=== PATIENT | female | born 2000 | race African-American/Black ===

== ENCOUNTER 2020-04-24 14:33 | Outpatient (REF) | payer OTHER, SELFPAY ==
[2020-04-25 09:40] LABS: BV Int Neg Control Negative (Negative); BV Int Pos Control Positive (Positive)
[2020-05-18 14:22] LABS: CT PCR NOT DETECTED (Not Detect.); NG PCR NOT DETECTED (Not Detect.)
== END 2020-04-24 14:34 | disposition home or self-care (01) ==
LOC: HO.LAB 14:33
PROVIDERS: Visit Provider Advanced Practice Midwife
DX: R39.15 Urgency of urination (principal); R35.0 Frequency of micturition; Z11.3 Encounter for screening for infections with a predominantly sexual mode of transmission
CPT/HCPCS: 81025; 87086; 87480; 87491; 87510; 87591; 87660

== ENCOUNTER 2020-05-17 08:07 | Outpatient (REF) | payer OTHER, SELFPAY ==
[2020-05-18 13:52] LABS: C. trachomatis RNA TMA NOT DETECTED (NOT DETECTED); N. gonorrhoeae RNA TMA NOT DETECTED (NOT DETECTED)
[2020-06-04 18:17] LABS: HPV mRNA E6/E7 rflx Not Detected (Not Detected)
== END 2020-05-17 08:08 | disposition home or self-care (01) ==
LOC: HO.LAB 08:07
PROVIDERS: Visit Provider Advanced Practice Midwife
DX: R87.615 Unsatisfactory cytologic smear of cervix (principal); A60.00 Herpesviral infection of urogenital system, unspecified; Z20.2 Contact with and (suspected) exposure to infections with a predominantly sexual mode of transmission
CPT/HCPCS: 36415; 81025; 87491; 87591; 87624; 88141; 88142

== ENCOUNTER 2020-09-03 08:11 | Outpatient (REF) | payer OTHER, SELFPAY ==
[2020-09-03 13:43] LABS: CT PCR NOT DETECTED (Not Detect.); NG PCR NOT DETECTED (Not Detect.)
[2020-09-04 08:44] LABS: BV Int Neg Control Negative (Negative); BV Int Pos Control Positive (Positive)
== END 2020-09-03 08:12 | disposition home or self-care (01) ==
LOC: HO.LAB 08:11
PROVIDERS: PCP Internal Medicine; Visit Provider Advanced Practice Midwife
DX: R39.15 Urgency of urination (principal); R10.2 Pelvic and perineal pain; N89.8 Other specified noninflammatory disorders of vagina; Z32.02 Encounter for pregnancy test, result negative; Z20.2 Contact with and (suspected) exposure to infections with a predominantly sexual mode of transmission
CPT/HCPCS: 81025; 87480; 87491; 87510; 87591; 87660

== ENCOUNTER 2020-09-28 11:14 | Outpatient (REF) | payer OTHER, SELFPAY ==
--- NOTE | ~2020-09-28 | XR_ITS ---
EXAMINATION: XR LUMBOSACRAL SPINE CLINICAL INFORMATION: Low back pain COMPARISON: None TECHNIQUE: Three views of the lumbosacral spine. FINDINGS: There are 5 nonrib bearing lumbar vertebra. No acute fracture, spondylolisthesis, or spondylolysis present. Disc spaces are maintained. No evidence of facet arthropathy. Sacroiliac joints unremarkable. Pedicles intact. XR/XR lumbar spine 2-3V IMPRESSION: No significant bony abnormality of the lumbar spine.
== END 2020-09-28 11:15 | disposition home or self-care (01) ==
LOC: HO.HMGCX 11:14
PROVIDERS: PCP Internal Medicine; Visit Provider Physician Assistant Medical
DX: M54.5 Low back pain (principal)
CPT/HCPCS: 72100

== ENCOUNTER 2020-10-19 12:58 | Outpatient (REF) | payer OTHER, SELFPAY ==
--- NOTE | ~2020-10-19 | XR_ITS ---
EXAMINATION: XR FINGER, RIGHT CLINICAL INFORMATION: Pain right finger COMPARISON: Pain right fingers. TECHNIQUE: 3 views of the right middle finger. FINDINGS: The bones and soft tissues are normal. No fracture. Alignment is anatomic. Joint spaces are maintained. XR/XR finger RT min 2V IMPRESSION: Unremarkable right middle finger exam.
== END 2020-10-19 12:59 | disposition home or self-care (01) ==
LOC: HO.HMGCX 12:58
PROVIDERS: PCP Internal Medicine; Visit Provider Hospitalist
DX: M79.644 Pain in right finger(s) (principal)
CPT/HCPCS: 73140

== ENCOUNTER 2020-11-08 09:21 | Outpatient (REF) | payer OTHER, SELFPAY ==
[2020-11-08 16:44] LABS: CT PCR NOT DETECTED (Not Detect.); NG PCR DETECTED (Not Detect.)
[2020-11-09 12:00] LABS: BV Int Neg Control Negative (Negative); BV Int Pos Control Positive (Positive)
== END 2020-11-08 09:22 | disposition home or self-care (01) ==
LOC: HO.LAB 09:21
PROVIDERS: PCP Internal Medicine; Visit Provider Advanced Practice Midwife
DX: R10.2 Pelvic and perineal pain (principal); R30.0 Dysuria; Z20.2 Contact with and (suspected) exposure to infections with a predominantly sexual mode of transmission
CPT/HCPCS: 81003; 87480; 87491; 87510; 87591; 87660

== ENCOUNTER 2020-11-14 14:49 | Outpatient (RCR) | payer OTHER, SELFPAY ==
--- NOTE | 2020-11-14 18:17 | MHC.PT.EP ---
[facility] [place] [facility] [place] [facility] [place] [facility] [address] Kasie Herbert [address] [phone] F: [phone] F: [phone] F: [phone] F: [phone] Physical Therapy Plan of Care Date of Evaluation: Date of Surgery: N/A Diagnosis: lo w back pain Assessment: pt's pain appears to be postural in nature d/t muscular imbalances causing strain on the lumbar spine. Her pain is also most likely d/t poor lifting and carrying mechanics stressing the low back. pt presents to physical therapy with pain, decreased range of motion, decreased strength, impaired functional mobility, impaired postural awareness, and gait deviations. pt is a good candidate for skilled PT due to age, potential remediation of impairments, typical disease/condition progression and prognosis, comorbidities, and motivation. pt would benefit from tailored strengthening and stretching exercise program, functional training, gait training, postural re-training, neuromuscular re-education, modalities as needed for pain, equipment safety demonstration. Frequency and Duration: The patient will be seen 2x/wk for 4 wks Short Term Goals: pt will be I w/ HEP to promote self-management of condition. pt will demo proper sitting posture w/ lumbar roll to promote neutral spine assessed via teachback/demo. 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 pt will report <2/10 low back pain after 6 hr work shift to facilitate pain-free return to work. Treatment Plan: Modalities to reduce pain, spasms and effusion. Manual therapy to restore motion and function. Therapeutic exercise to improve strength and flexibility. Neuromuscular re-education for posture and balance. Therapeutic activities to return to functional activities of daily living. Electronically signed by: Arcelia Cash PT, DPT Please sign and return to therapist. Thank you for your referral.
--- NOTE | 2020-11-27 14:00 | MHC.PT.DC ---
[facility] [place] [facility] [place] [facility] [place] [facility] [address] Kasie Herbert [address] [phone] F: [phone] F: [phone] F: [phone] F: [phone] Physical Therapy Discharge Report Diagnosis: lo w back pain Date of Surgery: N/A Date of Evaluation: 11/14/20 Date of Discharge: 11/27/20 Treatments to Date: 1 Cancellations to Date: 0 No Shows to Date: 3 Discharge Status: Visit Non-compliance Discharge Summary: The patient has no showed three consecutive appointments since her initial evaluation. She is discharged from this physical therapy plan of care due to visit non-compliance at this time. Electronically signed by: Arcelia Cash PT, DPT Please sign and return to therapist. Thank you for your referral.
== END 2020-11-27 14:01 | disposition home or self-care (01) ==
LOC: HO.PT 14:49
PROVIDERS: PCP Internal Medicine; Visit Provider Internal Medicine
DX: M54.5 Low back pain (principal)
CPT/HCPCS: 97110; 97112; 97161

== ENCOUNTER 2020-11-29 14:01 | Outpatient (REF) | payer OTHER, SELFPAY | END 2020-11-29 14:02 | disposition home or self-care (01) | LOC: HO.MDS 14:01 | PROVIDERS: Visit Provider Advanced Practice Midwife | DX: A54.9 Gonococcal infection, unspecified (principal) | CPT/HCPCS: 96372; J1580 ==

== ENCOUNTER 2021-02-24 17:20 | Emergency (ER) | payer OTHER, SELFPAY ==
[2021-02-24 17:32] VITALS: BP 141/83; PULSE 106; RESP 20; TEMP 36.8; O2SAT 96; BMI 29.9
--- NOTE | 2021-02-24 17:32 | ED_ITS ---
HPI - General Adult General Chief complaint: Wound/Laceration Stated complaint: Abscess Time Seen by Provider: 02/24/21 17:32 Related Data Previous Rx's Medication Instructions Recorded dexamethasone 6 mg tablet 6 mg PO DAILY 3 Days #3 tab 11/19/20 azithromycin 500 mg tablet 2,000 mg PO .COMPLEX #4 tab 11/28/20 norgestrel 0.3 mg-ethinyl 1 tab PO DAILY #28 tab 01/20/21 estradiol 30 mcg tablet (Low-Ogestrel (28)) sulfamethoxazole 800 1 tab PO Q12H 10 Days #20 tab 02/21/21 mg-trimethoprim 160 mg tablet (Bactrim DS) Allergies Allergy/AdvReac Type Severity Reaction Status Date / Time amoxicillin [AMOXICILLIN] Allergy Unknown UTICARIA Verified 02/24/21 17:52 amoxicillin Allergy Unknown hives Uncoded 10/28/20 16:14 PMFSH Past Medical History Medical History ADHD Genital herpes History of abnormal cervical Pap smear Obesity (BMI 30.0-34.9) Family History Family History Other Substance use disorder Social History Social History Housing: House Alcohol intake: current Alcohol intake frequency: holidays/special occasions only Patient Tobacco Use Status: Never used Tobacco Second Hand Smoke Exposure: No Substance Use Type: Marijuana Current occupational status: employed Sexual orientation: Straight/Heterosexual Physical Exam Vital Signs: Vital Signs: Last Vital Signs Temp 98.2 F 02/24/21 17:32 Pulse 106 H 02/24/21 17:32 Resp 20 02/24/21 17:32 BP 141/83 H 02/24/21 17:32 Pulse Ox 96 02/24/21 17:32 Body Mass Index 29.9 Course Course Course Narrative: 1730-This is a rapid medical exam. h/o recurrent pilonidal abscess currently on bactrim with continued pain, swelling despite PO antibiotics. Will need I&D. Deferred additional HPI, ROS and PE to primary provider. Discharge Plan Discharge Clinical Impression: Cyst, pilonidal, with abscess Patient Disposition: Home, Self-Care Instructions: Abscess (ED), Abscess Follow-up (ED), Abscess Incision and Drainage (DC) Additional Instructions: You were evaluated for pilonidal cyst. We incised and drained the cyst and applied iodoform packing. Please return in 3 days to remove packing. You may have any healthcare provider remove packing for you. Continue to take antibiotics as directed by prior provider. I referred you to Dr. Thompson, he is a general surgeon. Please call and request an appointment. Thank you for choosing this emergency department for evaluation. Please fol low-up with primary care physician as needed. Return to the emergency department for any new, concerning, or worsening symptoms. Prescriptions: No Action azithromycin 500 mg tablet 2,000 mg PO .COMPLEX Qty: 4 RF: 0 Low-Ogestrel (28) 0.3-30 mg-mcg tablet 1 tab PO DAILY Qty: 28 RF: 4 dexamethasone 6 mg tablet 6 mg PO DAILY 3 Days Qty: 3 RF: 0 sulfamethoxazole-trimethoprim [Bactrim DS] 800-160 mg tablet 1 tab PO Q12H 10 Days Qty: 20 RF: 0 Referrals: Hoang Thompson MD [Physician] - 2 days (Recurrent pilonidal cyst) Stand Alone Forms: Work/School Release Interventions: ED Discharge Assessment Last Done: 02/24/21 19:01 Discharge Date/Time: 02/24/21 19:02
--- NOTE | 2021-02-24 17:50 | ED.WOUNDLAC ---
HPI - Wound/Laceration General Chief Complaint: Wound/Laceration Stated Complaint: Abscess Time Seen by Provider: 02/24/21 17:32 Source: patient Mode of arrival: ambulatory Limitations: no limitations History of Present Illness HPI narrative: 20-year-old female presents for pilonidal cyst. Onset (ago): month(s) Location: other ([place]) Place: home Patient tetanus UTD: Yes Associated symptoms: pain Related Data Previous Rx's Medication Instructions Recorded dexamethasone 6 mg tablet 6 mg PO DAILY 3 Days #3 tab 11/19/20 azithromycin 500 mg tablet 2,000 mg PO .COMPLEX #4 tab 11/28/20 norgestrel 0.3 mg-ethinyl 1 tab PO DAILY #28 tab 01/20/21 estradiol 30 mcg tablet (Low-Ogestrel (28)) sulfamethoxazole 800 1 tab PO Q12H 10 Days #20 tab 02/21/21 mg-trimethoprim 160 mg tablet (Bactrim DS) Allergies Allergy/AdvReac Type Severity Reaction Status Date / Time amoxicillin [AMOXICILLIN] Allergy Unknown UTICARIA Verified 02/24/21 17:52 amoxicillin Allergy Unknown hives Uncoded 10/28/20 16:14 Review of Systems Review of Systems: Constitutional: No Fever, No Chills ENT/Mouth: No Ear Pain, No Hoarseness, No sore throat Eyes: No Eye Pain, No Swelling, No Redness, No Foreign Body Cardiovascular: No Chest Pain, No SOB Respiratory: No Cough, No Dyspnea Gastrointestinal: No Nausea, No Vomiting, No Diarrhea, No abdominal Pain Genitourinary: No Dysuria, No Hematuria Musculoskeletal: positive coccyx pain, No Myalgias, No Joint Swelling Skin: Positive pilonidal cyst, No Skin lacerations, No rash Neuro: No Weakness, No Numbness, No Paresthesias, No Loss of Consciousness, No Dizziness, No Headache Psych: No Anxiety/Panic, No Depression Heme/Lymph: no easy bruising, no Lymphadenopathy Endocrine: No Polyuria, No Polydipsia Yes all other systems are reviewed and are negative [facility] Past Medical History Attestation statement: The following information was validated with the patient. Source: old records reviewed Medical History ADHD Genital herpes History of abnormal cervical Pap smear Obesity (BMI 30.0-34.9) Family History Family History Other Substance use disorder Social History Social History Housing: House Alcohol intake: current Alcohol intake frequency: holidays/special occasions only Patient Tobacco Use Status: Never used Tobacco Second Hand Smoke Exposure: No Substance Use Type: Marijuana Advance Directives: No Advance Directives Information Provided: No Current occupational status: employed Sexual orientation: Straight/Heterosexual Physical Exam Vital Signs: Vital Signs: Last Vital Signs Temp 98.2 F 02/24/21 17:32 Pulse 106 H 02/24/21 17:32 Resp 20 02/24/21 17:32 BP 141/83 H 02/24/21 17:32 Pulse Ox 96 02/24/21 17:32 Body Mass Index 29.9 Appearance: Alert. Oriented X3. No acute distress. Eyes: Pupils equal, round and reactive to light. ENT: Pharynx normal. Neck: Normal inspection. Neck supple. CVS: Normal heart rate and rhythm. Pulses normal. Respiratory: No respiratory distress. Breath sounds normal. Abdomen: Soft and nontender. Skin: 5 cm area of indurated skin at the coccyx and left buttocks. Extremities: No lower extremity edema. Moves all extremities against resistance. Neuro: No motor deficit. No sensory deficit. Cranial nerves 2-12 intact. Course Course Course Narrative: 20-year-old female presents with recurrent pilonidal cyst. Was seen at urgent care and given Bactrim. States that she feels that needs to be incised and drained, has had multiple I&Ds for this pilonidal cyst in the past. Does not report any fevers or chills. I&D complete. Patient tolerated procedure well. Prepped and draped in sterile fashion. Please refer to procedure note for full details. Will have patient follow-up with surgery. Referred to Dr. Thompson. Patient verbalized understanding of and agrees to plan of care to discharge home. MDM - Wound/Laceration MDM Narrative Medical decision making narrative: Pilonidal cyst Differential Diagnosis Differential diagnosis: Likely abscess Medical Records Attestation: I reviewed the patient's medical records. Procedures Abscess I/D Site: other (Pilonidal) Local Anesthetic: lidocaine 2% Amount of anesthesia used (mL): 7 Technique: incised with blade Amount of fluid expressed (mL): 30 Sent for culture/gram staining?: Yes Irrigation: Yes Packing used?: iodoform Discharge Plan Discharge Clinical Impression: Cyst, pilonidal, with abscess Patient Disposition: Home, Self-Care Instructions: Abscess (ED), Abscess Follow-up (ED), Abscess Incision and Drainage (DC) Additional Instructions: You were evaluated for pilonidal cyst. We incised and drained the cyst and applied iodoform packing. Please return in 3 days to remove packing. You may have any healthcare provider remove packing for you. Continue to take antibiotics as directed by prior provider. I referred you to Dr. Thompson, he is a general surgeon. Please call and request an appointment. Thank you for choosing this emergency department for evaluation. Please follow-up with primary care physician as needed. Return to the emergency department for any new, concerning, or worsening symptoms. Prescriptions: No Action azithromycin 500 mg tablet 2,000 mg PO .COMPLEX Qty: 4 RF: 0 Low-Ogestrel (28) 0.3-30 mg-mcg tablet 1 tab PO DAILY Qty: 28 RF: 4 dexamethasone 6 mg tablet 6 mg PO DAILY 3 Days Qty: 3 RF: 0 sulfamethoxazole-trimethoprim [Bactrim DS] 800-160 mg tablet 1 tab PO Q12H 10 Days Qty: 20 RF: 0 Referrals: Hoang Thompson MD [Physician] - 2 days (Recurrent pilonidal cyst) Stand Alone Forms: Work/School Release Interventions: ED Discharge Assessment Last Done: 02/24/21 19:01 Discharge Date/Time: 02/24/21 19:02
[2021-02-24] MEDS: Lidocaine HCl 2 % MPF 5 ML VIAL SUBCUT ×2 (17:56→18:58)
== END 2021-02-24 19:02 | disposition home or self-care (01) ==
PROVIDERS: Emergency Provider Internal Medicine
DX: L05.01 Pilonidal cyst with abscess (principal); Z79.899 Other long term (current) drug therapy
CPT/HCPCS: 10060; 87071; 87205; 99284

== ENCOUNTER 2021-02-26 17:44 | Emergency (ER) | payer OTHER, SELFPAY ==
[2021-02-26 18:05] VITALS: BP 132/74; PULSE 93; RESP 18; TEMP 35.9; O2SAT 97; BMI 29.9
--- NOTE | 2021-02-26 19:34 | ED.SKABFB ---
HPI - Skin/Abscess/Foreign Bdy General Chief complaint: Skin/Abscess/Foreign Body Stated complaint: packing removed from cyst Time Seen by Provider: 02/26/21 18:59 Source: patient Mode of arrival: ambulatory History of Present Illness HPI narrative: 20-year-old female presenting to the ED for packing removal from pilonidal cyst that was I&D'd in the ED on 02/24. Reports compliance with previously prescribed Bactrim however nausea from medication Reports continued pain to area with slight residual drainage. Denies fever/chills, erythema complaint: abscess/boil Related Data Previous Rx's Medication Instructions Recorded dexamethasone 6 mg tablet 6 mg PO DAILY 3 Days #3 tab 11/19/20 azithromycin 500 mg tablet 2,000 mg PO .COMPLEX #4 tab 11/28/20 norgestrel 0.3 mg-ethinyl 1 tab PO DAILY #28 tab 01/20/21 estradiol 30 mcg tablet (Low-Ogestrel (28)) sulfamethoxazole 800 1 tab PO Q12H 10 Days #20 tab 02/21/21 mg-trimethoprim 160 mg tablet (Bactrim DS) ondansetron HCl 4 mg tablet 4 mg PO Q8H PRN #10 tab 02/26/21 (Zofran) Allergies Allergy/AdvReac Type Severity Reaction Status Date / Time amoxicillin [AMOXICILLIN] Allergy Unknown UTICARIA Verified 02/24/21 17:52 amoxicillin Allergy Unknown hives Uncoded 10/28/20 16:14 Review of Systems Review of Systems: Constitutional: No Fever, No Chills ENT/Mouth: No Ear Pain, No Nasal Congestion, No sore throat Cardiovascular: No Chest Pain, No SOB Respiratory: No Cough Gastrointestinal: No Nausea, No Vomiting, No Diarrhea, No Constipation, No Abdominal pain Genitourinary: No Dysuria, No Urinary Frequency Musculoskeletal: No joint pain, No Myalgias, No Joint Swelling Skin: + Skin Lesions, No rash Neuro: No Weakness, No Numbness Yes all other systems are reviewed and are negative [facility] Past Medical History Attestation statement: The following information was validated with the patient. Medical History ADHD Genital herpes History of abnormal cervical Pap smear Obesity (BMI 30.0-34.9) Family History Family History Other Substance use disorder Social History Social History Housing: House Alcohol intake: current Alcohol intake frequency: holidays/special occasions only Patient Tobacco Use Status: Never used Tobacco Second Hand Smoke Exposure: No Substance Use Type: Marijuana Advance Directives: No Advance Directives Information Provided: Yes Patient : No Current occupational status: employed Sexual orientation: Straight/Heterosexual Physical Exam Vital Signs: Vital Signs: Last Vital Signs Temp 96.6 F L 02/26/21 18:05 Pulse 93 02/26/21 18:05 Resp 18 02/26/21 18:05 BP 132/74 02/26/21 18:05 Pulse Ox 97 02/26/21 18:05 Body Mass Index 29.9 Const: General: cooperative, healthy appearing and well developed Orientation/consciousness: patient oriented x3 Limitations: no limitations HENMT: Head: Yes normal to inspection Ears: hearing grossly normal bilaterally General nose exam: Normal external nose present Face and sinus: Yes normal facial exam Eyes: General: appearance normal, both eyes and all related structures EOM: EOMs intact bilaterally Neck: Neck: Yes normal visual inspection and Yes no meningeal signs Resp: Effort & Inspection: normal respiratory effort and no respiratory distress Auscultation: clear to auscultation bilaterally Cardio: Rate: regular rate Heart sounds: S1 normal heart sound present and S2 normal heart sound present GI: Other: Pilonidal cyst present with packing in place, packing removed, slight pus drainage expressed, no surrounding erythema/cellulitis, no fluctuance or induration Inspection: Yes normal to inspection Palpation (GI): Soft to palpation, nontender, no guarding and not rigid : General: Yes no CVA tenderness Back/Spine/Pelvis: Back: no CVA tenderness Skin: Rashes: no rashes Wounds: no wounds Neuro: General: patient oriented x3 and no meningeal signs Gait exam (Neuro): Normal gait present Extrem: General: Yes normal to inspection Course Course Course Narrative: -packing removed MDM - Skin/Abscess/Foreign Bdy MDM Narrative Medical decision making narrative: 20-year-old female presenting to the ED for packing removal from pilonidal cyst that was I&D'd in the ED on 02/24. On exam vital signs stable, NAD, well appearing, physical exam as above, packing removed, dressing applied. Discussed worrisome signs and symptoms and strict return precautions with patient and needed continued from plans of antibiotics. Will send Zofran to pharmacy to aid with Bactrim. Medical Records Attestation: I reviewed the patient's medical records. Lab Data Attestation: I reviewed the patient's lab results. Discharge Plan Discharge Clinical Impression: Abscess packing removal Patient Disposition: Home, Self-Care Instructions: Abscess Follow-up (ED) Additional Instructions: Keep area dry and clean Take Tylenol /Motrin as needed Continue taking prescribed medication If area begins look infected, continues to have drainage, you develop fever please return to the ED Prescriptions: New ondansetron HCl [Zofran] 4 mg tablet 4 mg PO Q8H PRN (Reason: nausea and vomiting) Qty: 10 RF: 0 No Action azithromycin 500 mg tablet 2,000 mg PO .COMPLEX Qty: 4 RF: 0 Low-Ogestrel (28) 0.3-30 mg-mcg tablet 1 tab PO DAILY Qty: 28 RF: 4 dexamethasone 6 mg tablet 6 mg PO DAILY 3 Days Qty: 3 RF: 0 sulfamethoxazole-trimethoprim [Bactrim DS] 800-160 mg tablet 1 tab PO Q12H 10 Days Qty: 20 RF: 0 Referrals: Physician,None [Primary Care Provider] - 2 days Interventions: ED Discharge Assessment Last Done: 02/26/21 19:39 Discharge Date/Time: 02/26/21 19:41
== END 2021-02-26 19:41 | disposition home or self-care (01) ==
PROVIDERS: Emergency Provider Emergency Medicine
DX: L05.01 Pilonidal cyst with abscess (principal); Z98.890 Other specified postprocedural states
CPT/HCPCS: 99284

== ENCOUNTER 2021-03-04 16:35 | Emergency (ER) | payer OTHER, SELFPAY ==
[2021-03-04 16:57] VITALS: BP 119/74; PULSE 100; RESP 16; TEMP 36.2; O2SAT 99; BMI 29.7
--- NOTE | 2021-03-04 17:24 | ED_ITS ---
HPI - Recheck/Abnormal Lab/Rx General Chief Complaint: Skin/Abscess/Foreign Body Stated Complaint: boil still draining Time Seen by Provider: 03/04/21 17:19 Source: patient Mode of arrival: ambulatory Limitations: no limitations History of Present Illness complaint: wound re-check Initial visit (ago): day(s) (Eight days) Initial visit for: abscess Returns today for: wound recheck Symptoms since prior visit: improved (Although still having mild drainage in the morning when she pushes) Associated symptoms: none Treatments prior to arrival: other (She was given Bactrim although she reports she went on vacation did not take as prescribed) Related Data Previous Rx's Medication Instructions Recorded dexamethasone 6 mg tablet 6 mg PO DAILY 3 Days #3 tab 11/19/20 azithromycin 500 mg tablet 2,000 mg PO .COMPLEX #4 tab 11/28/20 norgestrel 0.3 mg-ethinyl 1 tab PO DAILY #28 tab 01/20/21 estradiol 30 mcg tablet (Low-Ogestrel (28)) sulfamethoxazole 800 1 tab PO Q12H 10 Days #20 tab 02/21/21 mg-trimethoprim 160 mg tablet (Bactrim DS) ondansetron HCl 4 mg tablet 4 mg PO Q8H PRN #10 tab 02/26/21 (Zofran) cephalexin 500 mg capsule 500 mg PO Q6H 14 Days #56 cap 03/04/21 sulfamethoxazole 800 1 tab PO BID 14 Days #28 tab 03/04/21 mg-trimethoprim 160 mg tablet (Bactrim DS) Allergies Allergy/AdvReac Type Severity Reaction Status Date / Time amoxicillin [AMOXICILLIN] Allergy Unknown UTICARIA Verified 03/04/21 17:11 amoxicillin Allergy Unknown hives Uncoded 10/28/20 16:14 Review of Systems Review of Systems: Constitutional : No Fever, No Chills, Cardiovascular : No Chest Pain, No SOB Respiratory : No Dyspnea Gastrointestinal : No abdominal pain Musculoskeletal : No Joint Swelling Skin : positive skin wound with mild drainage, no skin laceration, No Foreign bodies, No rash, No surrounding erythema Neuro : No Weakness, No Numbness/tingling Psych : No SI/HI/thoughts of self injury Yes all other systems are reviewed and are negative PMFSH Past Medical History Attestation statement: The following information was validated with the patient. Medical History ADHD Genital herpes History of abnormal cervical Pap smear Obesity (BMI 30.0-34.9) Family History Family History Other Substance use disorder Social History Social History Housing: House Alcohol intake: current Alcohol intake frequency: holidays/special occasions only Patient Tobacco Use Status: Never used Tobacco Second Hand Smoke Exposure: No Substance Use Type: Marijuana Advance Directives: No Advance Directives Information Provided: Yes Patient : No Current occupational status: employed Sexual orientation: Straight/Heterosexual Physical Exam Vital Signs: Vital Signs: Last Vital Signs Temp 97.1 F 03/04/21 16:57 Pulse 100 03/04/21 16:57 Resp 16 03/04/21 16:57 BP 119/74 03/04/21 16:57 Pulse Ox 99 03/04/21 16:57 Body Mass Index 29.7 vital signs have been reviewed as normal and appeared to be correct. Blood pressure normal Heart rate normal. Respiration rate normal. Temperature normal. Oxygen saturation normal. Appearance: Alert. Oriented X3. No acute distress. Head: Normal external exam. Normocephalic. Atraumatic. Eyes: PERRLA. EOMI. Conjunctiva and sclera normal. Eyelids normal. ENT: Pharynx normal. Uvula midline. Moist mucous membranes. Neck: Normal inspection. Neck supple. FROM. CVS: Normal heart rate and rhythm. Respiratory: No respiratory distress. Painless inspiration. Skin: Skin warm and dry. Normal skin color. Normal skin turgor. To pilonidal aspect of buttocks patient has a wound noted with mild purulent drainage no fluctuance/induration/foreign bodies noted at this time. No surrounding erythema noted. No additional rashes/lesions/lacerations noted. Extremities: Extremities exhibit normal range of motion. Extremities nontender. Neuro: Oriented X 3. No motor deficit. No sensory deficit. Reflexes normal. Normal steady gait. No focal neuro deficits noted. Vascular: + radial pulses Normal cap refill. No cyanosis noted to upper extremity nails Course Course Course Narrative: Patient with pilonidal wound still draining small amounts of purulent drainage no fluctuance or induration or surrounding erythema although due to patient is still having some drainage and not completing her course of antibiotics will restart her on Bactrim and Keflex and DC home with referral to follow up with the general surgeon to return if any new or worsening symptoms. Patient understands agrees with this plan. MDM - Recheck/Abnormal Lab/Rx Medical Records Attestation: I reviewed the patient's medical records. Discharge Plan Discharge Clinical Impression: Wound discharge, Encounter for wound re-check Patient Disposition: Home, Self-Care Instructions: Wound Infection (ED), Wound Healing and Your Diet (ED), Warm Comp ress or Soak (ED) Prescriptions: New sulfamethoxazole-trimethoprim [Bactrim DS] 800-160 mg tablet 1 tab PO BID 14 Days Qty: 28 RF: 0 cephalexin 500 mg capsule 500 mg PO Q6H 14 Days Qty: 56 RF: 0 No Action azithromycin 500 mg tablet 2,000 mg PO .COMPLEX Qty: 4 RF: 0 Low-Ogestrel (28) 0.3-30 mg-mcg tablet 1 tab PO DAILY Qty: 28 RF: 4 ondansetron HCl [Zofran] 4 mg tablet 4 mg PO Q8H PRN (Reason: nausea and vomiting) Qty: 10 RF: 0 dexamethasone 6 mg tablet 6 mg PO DAILY 3 Days Qty: 3 RF: 0 sulfamethoxazole-trimethoprim [Bactrim DS] 800-160 mg tablet 1 tab PO Q12H 10 Days Qty: 20 RF: 0 Referrals: Hoang Thompson MD [Physician] - 2 days Print Language: Azerbaijani
== END 2021-03-04 17:51 | disposition home or self-care (01) ==
PROVIDERS: Emergency Provider Internal Medicine
DX: Z48.01 Encounter for change or removal of surgical wound dressing (principal); L05.01 Pilonidal cyst with abscess
CPT/HCPCS: 99283

== ENCOUNTER → 2021-03-10 10:48 | Outpatient (BNVA) | payer OTHER, SELFPAY | PROVIDERS: Visit Provider Surgery ==

== ENCOUNTER 2021-03-19 08:51 | Outpatient (REF) | payer OTHER, SELFPAY ==
[2021-03-19 15:10] LABS: CT PCR NOT DETECTED (Not Detect.); NG PCR NOT DETECTED (Not Detect.)
== END 2021-03-19 08:52 | disposition home or self-care (01) ==
LOC: HO.LAB 08:51
PROVIDERS: Visit Provider Advanced Practice Midwife
DX: Z30.09 Encounter for other general counseling and advice on contraception (principal); Z20.2 Contact with and (suspected) exposure to infections with a predominantly sexual mode of transmission
CPT/HCPCS: 81025; 87491; 87591

== ENCOUNTER 2021-03-28 10:32 | Day surgery (SDC) | payer OTHER, SELFPAY ==
--- NOTE | 2021-03-27 14:16 | HO.ANESPROP2 ---
Documented by User: Amara Gonsalves NP 03/27/21 14:17 HPI - Anesthesia Eval Consult details Narrative: 20yo F for Excision Pilonidal Cyst PMFSH Active Problems Active Problems: All Active Problems (Updated 03/10/21 @ 11:18 by Hoang Thompson MD) Sacrococcygeal pilonidal cyst (Acute) Abscess (Acute) Pharyngitis (Acute) Foreign body of left thumb with infection (Acute) Pain of right middle finger (Acute) Lumbar back pain (Acute) Possible exposure to STD (Acute) Pelvic pain in female (Acute) Urinary urgency (Acute) Past Medical History Medical History ADHD Genital herpes History of abnormal cervical Pap smear Obesity (BMI 30.0-34.9) Sacrococcygeal pilonidal cyst Family History Family History Other Substance use disorder Social History Social History Housing: House Alcohol intake: current Alcohol intake frequency: holidays/special occasions only Patient Tobacco Use Status: Never used Tobacco Second Hand Smoke Exposure: No Use of substances other than those prescribed or required for medical reasons: Yes Substance Use Type: Marijuana Are you DNR?: No Advance Directives: No Advance Directives Information Provided: Yes Current occupational status: employed Sexual orientation: Straight/Heterosexual Meds Allergies Allergy/AdvReac Type Severity Reaction Status Date / Time amoxicillin [AMOXICILLIN] Allergy Intermediate UTICARIA Verified 03/28/21 11:31 amoxicillin Allergy Intermediate hives Uncoded 03/28/21 11:31 Exam Exam Date and Time: March 27, 2021 1416 Assessment and Plan Assessment Anesthesia Assessment: Chart Reviewed Documented by User: Osbaldo Deng MD 03/28/21 12:23 PMFSH Past Medical History Medical History ADHD Genital herpes History of abnormal cervical Pap smear Obesity (BMI 30.0-34.9) Sacrococcygeal pilonidal cyst Patient : No Family History Family History Other Substance use disorder Family history of problems with anesthesia: No Surgical History History of Problems with Anesthesia: No Social History Social History Housing: House Alcohol intake: current Alcohol intake frequency: holidays/special occasions only Patient Tobacco Use Status: Never used Tobacco Second Hand Smoke Exposure: No Use of substances other than those prescribed or required for medical reasons: Yes Substance Use Type: Marijuana Are you DNR?: No Advance Directives: No Advance Directives Information Provided: Yes Current occupational status: employed Sexual orientation: Straight/Heterosexual Meds Allergies Allergy/AdvReac Type Severity Reaction Status Date / Time amoxicillin [AMOXICILLIN] Allergy Intermediate UTICARIA Verified 03/28/21 11:31 amoxicillin Allergy Intermediate hives Uncoded 03/28/21 11:31 Exam Airway Mallampati Class: I TM Dist: >3cm Neck ROM: Full Loose/Missing/Broken Teeth: No Heart: ok Lungs: ok Assessment and Plan Final Anesthetic Review Family History of Problems with Anesthesia: No History of Problems with Anesthesia: No NPO: Yes ASA Class: II Final Preanesthetic Review: No Changes in Pt Med Stat, Meds/Allgs Chart Reviewed, Consent Obtained/Reviewed and Anes Risks/Benef Reviewed Patient Risk: Low Procedure Risk: Intermediate Anesthetic Plan Anesthetic Plan: GA and Agree w/ Assess. and Plan Disposition: Standard PACU
[2021-03-28 11:43] LABS: UPreg QC Valid YES; Urine Pregnancy NEGATIVE (NEGATIVE)
[2021-03-28 11:48] VITALS: BP 115/70; PULSE 65; RESP 18; TEMP 36.1; O2SAT 99; BMI 32.1
--- NOTE | 2021-03-28 11:55 | MHC.SHP ---
Pre-Procedural Eval Section A Date of Service: 03/28/21 Section B Chief Complaint: Sacrococcygeal pilonidal cyst Allergies: Allergies Allergy/AdvReac Type Severity Reaction Status Date / Time amoxicillin [AMOXICILLIN] Allergy Intermediate UTICARIA Verified 03/28/21 11:31 amoxicillin Allergy Intermediate hives Uncoded 03/28/21 11:31 Plan I have reviewed the history and physical and performed a pertinent physical examination on my patient. No changes have occurred unless specified.
[2021-03-28] MEDS: Lactated Ringers 1,000 ML 100 ML IVCONT (12:00)
--- NOTE | 2021-03-28 12:59 | P.OP_ITS ---
Operative Note Operative Note Date of Service: 03/28/21 Narrative: Preop diagnosis: Pilonidal cyst, sacrococcygeal area Postop diagnosis: Pilonidal cyst, sacrococcygeal area Procedure: Excision of pilonidal cyst from the sacrococcygeal area Surgeon: Hoang Thompson MD switchboard operator assistant: CHANCE Lambert Patient is a 20-year-old female with note of an area of recurrent swelling and drainage in the sacrococcygeal area. She had this induration to the left of midline along with midline pits in the gluteal cleft consistent with a pilonidal cyst. She did to proceed with excision. She understood technique of excision under anesthesia. She was aware of the risks, benefits, and alternatives. She was brought to the operating room placed in prone position under general anesthesia via laryngeal mask airway. The buttocks were retracted with wide tape laterally. The sacrococcygeal area was prepped and draped in the usual sterile fashion. A surgical time-out was done. The patient received cefazolin 2 g IV preoperatively. Infiltrated the planned line of incision using lidocaine 1%. I made an incision elliptically starting from beyond the pits all around the area of induration using blade 15. This carried down through the full- thickness skin subcutaneous fat with electrocautery to excise this entire indurated area along with the sinus tracts. The proceeded with this dissection posteriorly until this entire area was delivered and sent as a specimen. I cauterized oozing areas. The excision site was about 7.5 cm long by about 3 cm wide. Once hemostasis was ensured, I proceeded to then undermine the edges to create a flap of subcutaneous tissue on both sides and allow closure without tension. I reapposed the subcutaneous layer with Dexon 3-0 interrupted sutures. Skin closure was achieved with nylon 2-0 sutures simple interrupted sutures alternating with vertical mattress sutures to allow eversion of the skin. The area was then infiltrated with Marcaine 0.5% for postop analgesia. The procedure was completed The patient tolerated procedure well. There were no complication noted. Initial and final counts of sponges and instruments were correct. Estimated blood loss was about 15 cc . The patient was extubated without difficulty and transferred to the recovery room with stable vital signs.
[2021-03-28 13:17] VITALS: BP 105/62; PULSE 86; RESP 18; TEMP 36.1; O2SAT 97
[2021-03-28 13:22] VITALS: BP 122/67; PULSE 70; RESP 18; O2SAT 97
[2021-03-28 13:27] VITALS: BP 126/82; PULSE 77; RESP 18; O2SAT 99
[2021-03-28] MEDS: oxyCODONE HCl Immed Release 5 MG TABLET 10 MG PO (13:27)
[2021-03-28] MEDS: Acetaminophen 325 MG TABLET 650 MG PO (13:28)
[2021-03-28 13:32] VITALS: BP 126/84; PULSE 77; RESP 18; O2SAT 99
[2021-03-28 13:56] VITALS: BP 114/68; PULSE 62; RESP 16; TEMP 36.1; O2SAT 99
== END 2021-03-28 15:37 | disposition home or self-care (01) ==
PROVIDERS: Nurse Practitioner; Visit Provider Surgery
PROC: (CPT 11771; principal; 2021-03-28 11:40)
DX: L05.91 Pilonidal cyst without abscess (principal); A60.00 Herpesviral infection of urogenital system, unspecified; Z79.899 Other long term (current) drug therapy; Z88.0 Allergy status to penicillin
CPT/HCPCS: 11771; 81025; 88304; J0690; J1100; J1885; J2250; J2405; J3010

== ENCOUNTER → 2021-04-07 08:51 | Outpatient (BNVA) | payer OTHER, SELFPAY | PROVIDERS: Visit Provider Surgery ==

== ENCOUNTER → 2021-05-16 10:56 | Outpatient (BNVA) | payer OTHER, SELFPAY | PROVIDERS: Visit Provider Advanced Practice Midwife ==

== ENCOUNTER 2021-05-21 09:35 | Outpatient (REF) | payer OTHER, SELFPAY | END 2021-05-21 09:36 | disposition home or self-care (01) | LOC: HO.LAB 09:35 | PROVIDERS: Visit Provider Advanced Practice Midwife | DX: Z01.419 Encounter for gynecological examination (general) (routine) without abnormal findings (principal) | CPT/HCPCS: 88142 ==

== ENCOUNTER 2021-06-06 10:01 | Emergency (ER) | payer OTHER, SELFPAY ==
--- NOTE | ~2021-06-06 | US_ITS ---
EXAMINATION: US PELVIS CLINICAL INFORMATION: IUD placement with pelvic and uterine pain. Last menstrual period 05/15/2020. COMPARISON: No similar priors. TECHNIQUE: Ultrasound of the pelvis is performed using both transabdominal and transvaginal transducers along with Doppler. Transvaginal imaging is performed due to inadequate visualization transabdominally. FINDINGS: Uterus: The uterus is anteverted and measures 7.8 x 3.4 x 4.2 cm. No fibroids are identified. The endometrium measures 0.8 cm without focal abnormalities. An IUD is in appropriate positioning within the endometrial canal. Nabothian cysts overlie the cervix. Adnexa: Both ovaries are visualized. There is normal color flow to the adnexa. There is no pelvic ascites or fluid collection. Right ovary measures 4.3 x 3.2 x 3.9 cm. There is a 2.7 cm avascular cyst in the right ovary with fluid levels and layering debris is identified in some of the images. Left ovary measures 2.7 x 1.6 x 1.7 cm. US/US pelvic and transvaginal IMPRESSION: Appropriate positioning of the IUD. No evidence of ovarian torsion at the moment of this examination. A 2.7 cm cyst in the right ovary with layering fluid levels, favors to represent a hemorrhagic cyst which does not require follow-up. However, if pain persists, consider an interval imaging in 6-12 weeks to ensure resolution.
[2021-06-06 10:04] VITALS: BP 136/64; PULSE 103; RESP 18; TEMP 37.1; O2SAT 99; BMI 31.1
--- NOTE | 2021-06-06 10:21 | ED_ITS ---
HPI - Female Genitourinary General Chief complaint: Urogenital-Female Stated complaint: IUD issues Time Seen by Provider: 06/06/21 10:21 Source: patient Mode of arrival: ambulatory Limitations: no limitations History of Present Illness HPI Narrative: Patient had an IUD placed 3 weeks ago, last night after sex she had increased pain and cramping, Now with pain that is not improving with tylenol. Patient comes for increased pain. Patient with increased with nausea Onset (ago): week(s) Severity: mild Quality of pain: sharp and aching Consistency: intermittent Associated symptoms: abdominal pain Related Data Previous Rx's Medication Instructions Recorded naproxen 500 mg tablet 500 mg PO BID #14 tab 05/06/21 naproxen 500 mg tablet (Naprosyn) 500 mg PO BID #20 tab 06/06/21 Allergies Allergy/AdvReac Type Severity Reaction Status Date / Time amoxicillin Allergy Intermediate UTICARIA Verified 06/06/21 10:04 [AMOXICILLIN] Review of Systems 2 Verdana 4l Constitutional: Verdana 4d Constitutional: Verdana 4d Verdana 4d Reports no additional constitutional complaints Verdana 4l Eyes: Verdana 4d Verdana 4d Eyes: Verdana 4d Reports no additional eye complaints Verdana 4l ENT: Verdana 4d Denies dizziness Verdana 4l Cardiovascular: Verdana 4d Cardiovascular: Verdana 4d Verdana 4d Reports no additional cardiovascular complaints Verdana 4l Respiratory: Verdana 4d Verdana 4d Respiratory: Verdana 4d Reports as per HPI Verdana 4l Gastrointestinal: Verdana 4d Gastrointestinal: Verdana 4d Verdana 4d Reports no additional gastrointestinal complaints Verdana 4l Genitourinary: Verdana 4d Verdana 4d Genitourinary: Verdana 4d Reports no additional female genitourinary complaints Verdana 4l Musculoskeletal: Verdana 4d Musculoskeletal: Verdana 4d Verdana 4d Reports no additional musculoskeletal complaints Verdana 4l Integumentary/Breasts: Verdana 4d Skin/Breast: Verdana 4d Verdana 4d Denies rash Verdana 4l Neurologic: Verdana 4d Reports system reviewed and no additional complaints, except as documented, Denies dizziness and Denies Sensory deficit (Neuro) Verdana 4l Psychiatric: Verdana 4d Verdana 4d Psychiatric: Verdana 4d Denies anxiety [facility] Past Medical History Medical History ADHD Genital herpes History of abnormal cervical Pap smear Obesity (BMI 30.0-34.9) Sacrococcygeal pilonidal cyst Family History Family History Other Substance use disorder Social History Social History Housing: House Alcohol intake: never Patient Tobacco Use Status: Never used Tobacco Second Hand Smoke Exposure: No Use of substances other than those prescribed or required for medical reasons: No Substance Use Type: Marijuana Advance Directives: No Advance Directives Information Provided: No Current occupational status: employed Sexual orientation: Straight/Heterosexual Physical Exam Verdana 4l Vital Signs: Verdana 4d Verdana 4d Vital Signs: Verdana 4d Verdana 4Bd Last Vital Signs Verdana 4d Paper Gluing Operator New 4d Paper Gluing Operator New 4d Temp 98.8 F 06/06/21 10:04 Paper Gluing Operator New 4d Pulse 93 06/06/21 12:08 Paper Gluing Operator New 4d Resp 14 06/06/21 12:08 BP 125/63 06/06/21 12:08 Pulse Ox 100 06/06/21 12:08 BMI result Body Mass Index 31.1 Const: General: healthy appearing Nutritional Appearance: average body habitus Orientation/consciousness: oriented to person and patient oriented x3 Limit ations: no limitations HENMT: Head: Yes normal to inspection Ears: external ears normal General nose exam: Normal external nose present Mouth: Normal oral and palatal mucosa present and oropharynx normal Throat: Yes posterior oropharynx normal Eyes: General: appearance normal, both eyes and all related structures Neck: Other: supple Neck: Yes normal visual inspection Chest: Chest palpation & inspection: normal inspection of the chest Resp: Auscultation: clear to auscultation bilaterally Cardio: Jugular venous distension: no JVD Rate: regular rate Rhythm: regular rhythm Heart sounds: S1 normal heart sound present and S2 normal heart sound present GI: Inspection: Yes normal to inspection Palpation (GI): Soft to palpation, nontender and No hepatosplenomegaly present Auscultation: normal bowel sounds : Other: cervix visualized, no strings apparent, slight brown discharge, no active bleeding General: Yes no CVA tenderness Back/Spine/Pelvis: Back: no CVA tenderness Skin: General skin exam: no rashes or lesions noted Neuro: General: oriented to person and patient oriented x3 Cranial nerves: Yes CN's II-XII intact bilaterally Motor exam (neuro): 5/5 motor strength present throughout Sensory Exam: No Sensory deficit (Neuro) Extrem: General: Yes normal to inspection Psych: Appearance: grossly normal Course Reevaluation(s) Reevaluation #1: Patient with IUD in good position, patient has a 3cm ovarian cyst on the right that is probably causing her pain. Will dc on Nsaids Time: 12:43 [facility] - Female Genitourinary Lab Data Labs: Lab Results 06/06/21 06/06/21 Range/Units 10:40 10:40 Urine Color YELLOW Urine Appearance HAZY Urine pH 6.5 (5.0-8.0) Ur Specific [place] 1.025 (1.005-1.025) Urine Protein TRACE (NEG-TRACE) MG/DL Urine Glucose (UA) NEG (NEG) MG/DL Urine Ketones NEG (NEG) MG/DL Urine Blood TRACE (NEG) Urine Nitrite NEG (NEG) Ur Leukocyte Esterase NEG (NEG) Urine RBC 0 (0) /HPF Urine WBC 0-2 (0-4) /HPF Ur Squamous Epith Cells 1+ /LPF Amorphous Sediment TRACE /LPF Urine Bacteria NONE /LPF Urine Mucus 1+ /LPF Urine Test NEGATIVE (NEGATIVE) Imaging Data pelvic US: Radiologist's impression: FINDINGS: Uterus: The uterus is anteverted and measures 7.8 x 3.4 x 4.2 cm. No fibroids are identified. The endometrium measures 0.8 cm without focal abnormalities. An IUD is in appropriate positioning within the endometrial canal. Nabothian cysts overlie the cervix. Adnexa: Both ovaries are visualized. There is normal color flow to the adnexa. There is no pelvic ascites or fluid collection. Right ovary measures 4.3 x 3.2 x 3.9 cm. There is a 2.7 cm avascular cyst in the right ovary with fluid levels and layering debris is identified in some of the images. Left ovary measures 2.7 x 1.6 x 1.7 cm. US/US pelvic and transvaginal IMPRESSION: Appropriate positioning of the IUD. ? No evidence of ovarian torsion at the moment of this examination. ? A 2.7 cm cyst in the right ovary with layering fluid levels, favors to represent a hemorrhagic cyst which does not require follow-up. However, if pain persists, consider an interval imaging in 6-12 weeks to ensure resolution. Discharge Plan Discharge Clinical Impression: Ovarian cyst Patient Disposition: Home, Self-Care Instructions: Ovarian Cyst (ED) Prescriptions: New naproxen [Naprosyn] 500 mg tablet 500 mg PO BID Qty: 20 0RF No Action naproxen 500 mg tablet 500 mg PO BID Qty: 14 0RF Referrals: Emil Mendiola MD [Physician] - 1 week
[2021-06-06 10:35] VITALS: BP 129/77; PULSE 103; RESP 14; O2SAT 98
[2021-06-06 10:54] LABS: Appearance Urine HAZY; Color Urine YELLOW; Glucose Urine UA NEG (NEG); Leukocyte Esterase Urine NEG (NEG); Nitrite Urine NEG (NEG); PH 6.5 (5.0-8.0); Specific Gravity - Urine 1.025 (1.005-1.025); UACC Culture Trigger NO; Urine Blood TRACE (NEG); Urine Ketones NEG (NEG); Urine Protein TRACE MG/DL (NEG-TRACE)
[2021-06-06 10:55] LABS: UPreg QC Valid YES; Urine Pregnancy NEGATIVE (NEGATIVE)
[2021-06-06] MEDS: Ondansetron ODT 4 MG TAB.RAPDIS TRANSLINGU (10:55)
[2021-06-06] MEDS: Ketorolac Tromethamine 60 MG/2 ML VIAL IM (10:56)
[2021-06-06 11:10] LABS: Amorphous Sediment Urine TRACE /LPF; Mucus Urine 1+ /LPF; RBC Urine 0 /HPF (0); Squamous Epithelial Cell Urine 1+ /LPF; WBC Urine 0-2 /HPF (0-4)
[2021-06-06 12:08] VITALS: BP 125/63; PULSE 93; RESP 14; O2SAT 100
== END 2021-06-06 13:02 | disposition home or self-care (01) ==
PROVIDERS: Emergency Provider Emergency Medicine
DX: N83.201 Unspecified ovarian cyst, right side (principal); F12.90 Cannabis use, unspecified, uncomplicated; Z79.899 Other long term (current) drug therapy
CPT/HCPCS: 76830; 76856; 81001; 81025; 96372; 99284; J1885

== ENCOUNTER → 2021-06-13 08:20 | Outpatient (BNVA) | payer OTHER, SELFPAY | PROVIDERS: Visit Provider Advanced Practice Midwife ==

== ENCOUNTER 2021-06-17 02:56 | Emergency (ER) | payer OTHER, SELFPAY ==
--- NOTE | ~2021-06-17 | XR_ITS ---
EXAMINATION: XR SHOULDER, RIGHT CLINICAL INFORMATION: Pain COMPARISON: None TECHNIQUE: Three views of the right shoulder. FINDINGS: Glenohumeral alignment is anatomic. No acute fracture is seen. The acromioclavicular joint is intact. XR/XR shoulder RT min 2V IMPRESSION: No acute findings.
[2021-06-17 02:57] VITALS: BP 143/77; PULSE 87; RESP 18; TEMP 36.2; O2SAT 99; BMI 31.3
[2021-06-17 04:39] VITALS: BP 124/76; PULSE 87; RESP 12; TEMP 36.7; O2SAT 100
--- NOTE | 2021-06-17 05:01 | ED_ITS ---
HPI - Extremity Problem General Chief complaint: Extremity Injury, Upper Stated complaint: right shoulder pain x3 days Time Seen by Provider: 06/17/21 03:15 Source: patient Mode of arrival: ambulatory History of Present Illness HPI Narrative: 20-year-old female without significant past medical history presents with anterior right shoulder discomfort that is atraumatic in nature but patient states has worsened over time and that it is exacerbated by lying on her right side and patient states that she experiences pain when she places her arm in flexion or extension but denies any numbness/tingling/weakness into the distal extremity. She denies any associated, shortness of breath. Related Data Home Medications Medication Instructions Recorded Confirmed levonorgestrel (Kyleena) 0 device INTRAUTERINE ONCE 06/13/21 Previous Rx's Medication Instructions Recorded naproxen 500 mg tablet 500 mg PO BID #14 tab 05/06/21 naproxen 500 mg tablet (Naprosyn) 500 mg PO BID #20 tab 06/06/21 ketorolac 10 mg tablet 10 mg PO Q6H PRN 5 Days #20 tab 06/17/21 Allergies Allergy/AdvReac Type Severity Reaction Status Date / Time amoxicillin [AMOXICILLIN] Allergy Intermediate UTICARIA Verified 06/17/21 02:57 Review of Systems Review of Systems: Pertinent positives and negatives as stated in HPI 10 point review of systems is otherwise negative. [facility] Past Medical History Source: nursing notes reviewed Medical History ADHD Genital herpes History of abnormal cervical Pap smear Obesity (BMI 30.0-34.9) Sacrococcygeal pilonidal cyst Family History Family History Other Substance use disorder Social History Social History Housing: House Alcohol intake: never Patient Tobacco Use Status: Never used Tobacco Second Hand Smoke Exposure: No Substance Use Type: Marijuana Advance Directives: No Patient : No Current occupational status: employed Sexual orientation: Straight/Heterosexual Physical Exam Vital Signs: Vital Signs: Last Vital Signs Temp 98.1 F 06/17/21 04:39 Pulse 87 06/17/21 04:39 Resp 12 06/17/21 04:39 BP 124/76 06/17/21 04:39 Pulse Ox 100 06/17/21 04:39 BMI result Body Mass Index 31.3 VITAL SIGNS: Reviewed. GENERAL: Well developed, well nourished, in no acute distress. HEAD: Normocephalic/atraumatic EYES: PERRLA, EOMI LUNGS: Normal breath sounds. No adventitious sounds or accessory muscle use. SpO2<100> CARDIOVASCULAR: Regular rate and rhythm without noted murmurs ABDOMEN: Soft, non-tender, non-distended with bowel sounds RIGHT UPPER EXTREMITY: No deformities, erythema, swelling, induration noted, there is pain on palpation over the bicipital groove and patient has active range of motion with discomfort. Pulses are palpable, warm extremity, sensation intact, capillary refill less than 3 seconds. NEUROLOGIC: Alert and oriented x 4. Course Course Course Narrative: 20-year-old female with history and clinical presentation consistent with tendinitis and low clinical suspicion for rotator cuff injury/dislocation/fracture. Review of all imaging studies negative for acute findings and patient received combination analgesics and was otherwise discharged home in stable condition with instructions to follow-up with her primary care provider. Discharge Plan Discharge Clinical Impression: Right shoulder tendinitis Patient Disposition: Home, Self-Care Instructions: Shoulder Pain (ED) Additional Instructions: 1. Continue to move your right shoulder to prevent stiffness and arthritis. 2. Tylenol 1000 mg, orally, every 6 hours as needed for pain control. Do not exceed 4000 mg within 24 hours. Lidocaine patch, available [id number], apply to area of maximal tenderness. 3. You have been prescribed an anti-inflammatory and should not use any other anti-inflammatories while on this medication (do not use naproxen, Aleve, ibuprofen, or Motrin). 4. Recommend that you follow-up with your primary care provider for re- evaluation and further outpatient management. Return to the ER for worsening symptoms. Prescriptions: New ketorolac 10 mg tablet 10 mg PO Q6H PRN (Reason: pain) 5 Days Qty: 20 0RF Rx Instructions: 1. Patient received Toradol in the ER. 2. Patient needs stop taking naproxen. No Action naproxen [Naprosyn] 500 mg tablet 500 mg PO BID Qty: 20 0RF naproxen 500 mg tablet 500 mg PO BID Qty: 14 0RF Kyleena 17.5 mcg/24 hrs (5 yrs) 19.5 mg intrauterine device 0 device intrauterine ONCE 0RF
[2021-06-17] MEDS: Ketorolac Tromethamine 30 MG/ML VIAL 15 MG IM (05:07)
[2021-06-17] MEDS: Acetaminophen 325 MG TABLET 975 MG PO (05:08)
[2021-06-17] MEDS: Lidocaine 4 % Patch ADH..PATCH 1 PATCH TRANSDERMA (05:11)
== END 2021-06-17 05:16 | disposition home or self-care (01) ==
PROVIDERS: Emergency Provider Student in an Organized Health Care Education/Training Program
DX: M75.31 Calcific tendinitis of right shoulder (principal); Z79.899 Other long term (current) drug therapy; F12.90 Cannabis use, unspecified, uncomplicated
CPT/HCPCS: 73030; 96372; 99284; J1885

== ENCOUNTER 2021-07-03 17:56 | Emergency (ER) | payer OTHER, SELFPAY ==
[2021-07-03 18:17] VITALS: BP 147/71; PULSE 117; RESP 16; TEMP 36.2; O2SAT 99; BMI 31.0
[2021-07-03 22:39] VITALS: BP 117/60; PULSE 93; RESP 15; O2SAT 100
--- NOTE | 2021-07-03 22:48 | ED_ITS ---
HPI - Female Genitourinary General Chief complaint: Urogenital-Female Stated complaint: Lower abd pain Time Seen by Provider: 07/03/21 22:48 Source: patient Mode of arrival: ambulatory Limitations: no limitations History of Present Illness HPI Narrative: Patient history of 2.5 cm right ovarian cyst head ultrasound on 06/06 been having pain since then when she has intercourse dipesh or [facility] today who advised her to get ultrasound and schedule as outpatient but patient came to the ER no significant increase in abdominal pain no nausea no vomiting Related Data Home Medications Medication Instructions Recorded Confirmed levonorgestrel (Kyleena) 0 device INTRAUTERINE ONCE 06/13/21 Previous Rx's Medication Instructions Recorded naproxen 500 mg tablet 500 mg PO BID #14 tab 05/06/21 naproxen 500 mg tablet (Naprosyn) 500 mg PO BID #20 tab 06/06/21 ketorolac 10 mg tablet 10 mg PO Q6H PRN 5 Days #20 tab 06/17/21 Allergies Allergy/AdvReac Type Severity Reaction Status Date / Time amoxicillin [AMOXICILLIN] Allergy Intermediate UTICARIA Verified 07/03/21 18:17 Review of Systems Review of Systems: Yes all other systems are reviewed and are negative [facility] Past Medical History Medical History ADHD Genital herpes History of abnormal cervical Pap smear Obesity (BMI 30.0-34.9) Sacrococcygeal pilonidal cyst Family History Family History Other Substance use disorder Social History Social History Housing: House Alcohol intake: never Patient Tobacco Use Status: Never used Tobacco Second Hand Smoke Exposure: No Use of substances other than those prescribed or required for medical reasons: No Substance Use Type: Marijuana Advance Directives: No Advance Directives Information Provided: No Patient : No Current occupational status: employed Sexual orientation: Straight/Heterosexual Physical Exam Vital Signs: Vital Signs: Last Vital Signs Temp 97.2 F 07/03/21 18:17 Pulse 93 07/03/21 22:39 Resp 15 07/03/21 22:39 BP 117/60 07/03/21 22:39 Pulse Ox 100 02/24/22 22:39 BMI result Body Mass Index 31.0 Appearance: Alert. Oriented X3. No acute distress. ENT: Pharynx normal. Oral Mucosa moist Neck: Normal inspection. Neck supple. CVS: Normal heart rate and rhythm. Pulses normal. Respiratory: No respiratory distress. Equal air entry bilateral, no wheezing/rales/rhonchi Abdomen: Soft mild suprapubic tenderness. Bowel sounds are present, no mass palpable, no CVA tenderness Pelvic: No CMT tenderness slight bloody discharge, no adnexal tenderness Skin: Skin warm and dry. Normal skin color. Normal skin turgor. Extremities: No lower extremity edema. No calf tenderness Neuro: Oriented X 3. MDM - Female Genitourinary MDM Narrative Medical decision making narrative: cdw with Dr. Mendiola INTERNATIONAL [employer]OADCAST [employer]IC LIBRARIAN, advised patient can go home and follow-up as outpatient ultrasound Lab Data Labs: Lab Results 07/03/21 07/03/21 Range/Units 22:44 22:44 Urine Color YELLOW Urine Appearance CLEAR Urine pH 5.5 (5.0-8.0) Ur Specific [place] >= 1.030 H (1.005-1.025) Urine Protein TRACE (NEG-TRACE) MG/DL Urine Glucose (UA) NEG (NEG) MG/DL Urine Ketones NEG (NEG) MG/DL Urine Blood 2+ H (NEG) Urine Nitrite NEG (NEG) Ur Leukocyte Esterase NEG (NEG) Urine RBC 1-4 (0) /HPF Urine WBC 0 (0-4) /HPF Ur Squamous Epith Cells 1+ /LPF Urine Bacteria 1+ /LPF Urine Mucus 1+ /LPF Urine Test NEGATIVE (NEGATIVE) Discharge Plan Discharge Clinical Impression: Ovarian cyst Patient Disposition: Home, Self-Care Instructions: Ovarian Cyst (ED) Additional Instructions: Follow-up with your historiography professor as scheduled for outpatient ultrasound Take naproxen for pain Prescriptions: No Action ketorolac 10 mg tablet 10 mg PO Q6H PRN (Reason: pain) 5 Days Qty: 20 0RF Rx Instructions: 1. Patient received Toradol in the ER. 2. Patient needs stop taking naproxen. naproxen [Naprosyn] 500 mg tablet 500 mg PO BID Qty: 20 0RF naproxen 500 mg tablet 500 mg PO BID Qty: 14 0RF Kyleena 17.5 mcg/24 hrs (5 yrs) 19.5 mg intrauterine device 0 device intrauterine ONCE 0RF Stand Alone Forms: Work/School Release Interventions: ED Discharge Assessment Last Done: 07/03/21 23:10
[2021-07-03 22:56] LABS: Appearance Urine CLEAR; Color Urine YELLOW; Glucose Urine UA NEG (NEG); Leukocyte Esterase Urine NEG (NEG); Nitrite Urine NEG (NEG); PH 5.5 (5.0-8.0); Specific Gravity - Urine >= 1.030 (1.005-1.025); Urine Blood 2+ (NEG); Urine Ketones NEG (NEG); Urine Protein TRACE MG/DL (NEG-TRACE)
[2021-07-03 22:58] LABS: UPreg QC Valid YES; Urine Pregnancy NEGATIVE (NEGATIVE)
[2021-07-03 23:05] LABS: Bacteria Urine 1+ /LPF; Mucus Urine 1+ /LPF; Squamous Epithelial Cell Urine 1+ /LPF; WBC Urine 0 /HPF (0-4)
--- NOTE | 2021-07-03 23:06 | PC.NURSE ---
Patient came in with complaints of pelvic pain post sexual intercouse. Pelvic exam performed and patient reported being uncomfortable but not much pain. Consult with Dr. Mendiola and patient will be followed up with as an outpatient.
== END 2021-07-03 23:33 | disposition home or self-care (01) ==
PROVIDERS: Emergency Provider Internal Medicine
DX: N83.201 Unspecified ovarian cyst, right side (principal); R10.30 Lower abdominal pain, unspecified
CPT/HCPCS: 81001; 81025; 99284

== ENCOUNTER → 2021-07-07 11:07 | Outpatient (BNVA) | payer OTHER, SELFPAY | PROVIDERS: Visit Provider Advanced Practice Midwife ==

== ENCOUNTER 2021-07-09 16:02 | Outpatient (REF) | payer OTHER, SELFPAY ==
--- NOTE | ~2021-07-09 | US_ITS ---
EXAMINATION: US PELVIS CLINICAL INFORMATION: Pelvic and perineal pain COMPARISON: Chest on 05/29/2021 TECHNIQUE: Ultrasound of the pelvis is performed using both transabdominal and transvaginal transducers along with Doppler. Transvaginal imaging is performed due to inadequate visualization transabdominally. FINDINGS: Uterus: The uterus is anteverted, anteflexed and measures 7.3 x 3.6 x 4.8 cm. The double wall endometrial thickness is 0.2 cm. There is a IUD well located within the endometrial canal in correct position. The uterus is smooth in contour and has normal myometrial echogenicity. No visible fibroid. There are small nabothian cysts seen in the cervix. Adnexa: Both ovaries are visualized. There is normal color flow to the adnexa. There is no ovarian torsion. There is no pelvic ascites or fluid collection. Right ovary measures 4.0 x 2.5 x 2.0 cm and volume 10.5 mL. Previously visualized large cyst is not seen today. There are small follicular cysts seen. Left ovary measures measures 2.7 x 2.5 x 1.7 cm and volume 6.01 mL. There are small follicular cysts seen. Previously left ovary measured 2.7 x 1.6 x 1.7 cm. US/US pelvic and transvaginal IMPRESSION: IUD in correct position within the endometrial canal. Small nabothian cysts in the cervix. Bilateral ovarian follicles noted.
== END 2021-07-09 16:03 | disposition home or self-care (01) ==
LOC: HO.US 16:02
PROVIDERS: Visit Provider Advanced Practice Midwife
DX: N93.9 Abnormal uterine and vaginal bleeding, unspecified (principal); R10.2 Pelvic and perineal pain; N88.8 Other specified noninflammatory disorders of cervix uteri; N83.02 Follicular cyst of left ovary; N83.01 Follicular cyst of right ovary; Z30.431 Encounter for routine checking of intrauterine contraceptive device
CPT/HCPCS: 76830; 76856

== ENCOUNTER → 2021-07-16 15:32 | Outpatient (BNVA) | payer OTHER, SELFPAY | PROVIDERS: Visit Provider Advanced Practice Midwife ==

== ENCOUNTER 2021-09-25 10:54 | Outpatient (REF) | payer OTHER, SELFPAY ==
[2021-09-26 12:53] LABS: BV Int Neg Control Negative (Negative); BV Int Pos Control Positive (Positive)
== END 2021-09-25 10:55 | disposition home or self-care (01) ==
LOC: HO.LAB 10:54
PROVIDERS: Visit Provider Advanced Practice Midwife
DX: Z30.431 Encounter for routine checking of intrauterine contraceptive device (principal); N89.8 Other specified noninflammatory disorders of vagina; R10.2 Pelvic and perineal pain
CPT/HCPCS: 87480; 87510; 87660

== ENCOUNTER 2021-11-13 13:47 | Outpatient (REF) | payer OTHER, SELFPAY ==
[2021-11-13 17:17] LABS: CT PCR NOT DETECTED (Not Detect.); NG PCR NOT DETECTED (Not Detect.)
[2021-11-14 09:49] LABS: BV Int Neg Control Negative (Negative); BV Int Pos Control Positive (Positive)
== END 2021-11-13 13:48 | disposition home or self-care (01) ==
LOC: HO.LNP 13:47
PROVIDERS: Visit Provider Internal Medicine
DX: Z11.3 Encounter for screening for infections with a predominantly sexual mode of transmission (principal); N89.8 Other specified noninflammatory disorders of vagina
CPT/HCPCS: 87480; 87491; 87510; 87591; 87660

== ENCOUNTER 2021-12-05 11:03 | Outpatient (REF) | payer OTHER, SELFPAY ==
[2021-12-05 11:31] LABS: Hematocrit 41.3 % (37.0-47.0); Hemoglobin 14.1 g/dl (12.0-16.0); Mean Corpuscular HGB Conc 34.1 g/dl (31.0-35.0); Mean Corpuscular Hemoglobin 30.9 pg (27.0-33.0); Mean Corpuscular Volume 90.6 fL (80.0-98.0); Mean Platelet Volume 11.5 fL (9.4-12.3); Platelet Count 288 X10*3/uL (160-400); Red Blood Count 4.56 X10*6/uL (4.20-5.50); Red Cell Distribution Width 13.1 % (11.0-16.0); White Blood Count 7.8 X10*3/uL (4.8-10.8)
[2021-12-05 12:13] LABS: Alanine Aminotransferase 22 U/L (0-31); Albumin Level 4.6 g/dL (3.5-5.0); Alkaline Phosphatase 50 U/L (39-117); Anion Gap 16 (12-20); Aspartate Amino Transferase 17 U/L (5-31); Bilirubin Total 0.9 mg/dL (0.0-1.0); Blood Urea Nitrogen 7 mg/dL (9-16); Calcium 9.5 mg/dL (8.4-10.2); Carbon Dioxide 24 mmol/L (22-29); Chloride 106 mmol/L (96-108); Cholesterol 173 mg/dL; Estimated Glomerular Filt Rate > 60; Glucose Fasting 93 mg/dL (60-99); HDL Cholesterol 48 mg/dL; LDL Cholesterol Calculated 109 mg/dl; Potassium 4.5 mmol/L (3.3-5.1); Sodium 141 mmol/L (135-145); Total Protein 7.7 g/dL (6.5-8.0); Triglycerides 81 mg/dL
[2021-12-05 12:17] LABS: TSH reflex Free T4 1.07 uIU/mL (0.32-4.0)
== END 2021-12-05 11:04 | disposition home or self-care (01) ==
LOC: HO.LAB 11:03
PROVIDERS: PCP Hospitalist; Visit Provider Hospitalist
DX: Z00.00 Encounter for general adult medical examination without abnormal findings (principal)
CPT/HCPCS: 36415; 80053; 80061; 84443; 85027

== ENCOUNTER 2022-01-01 10:17 | Outpatient (REF) | payer OTHER, SELFPAY ==
[2022-01-01 12:11] LABS: HIV AB/AG Nonreactive (Nonreactive); HIV Num 1 0.05 S/CO (0.00-0.99)
== END 2022-01-01 10:18 | disposition home or self-care (01) ==
LOC: HO.LAB 10:17
PROVIDERS: PCP Hospitalist; Visit Provider Hospitalist
DX: Z11.3 Encounter for screening for infections with a predominantly sexual mode of transmission (principal)
CPT/HCPCS: 36415; 87389

== ENCOUNTER 2022-01-07 09:52 | Outpatient (REF) | payer OTHER, SELFPAY ==
[2022-01-07 11:01] LABS: Amylase 62 U/L (28-100); Lipase 12 U/L (8-78)
== END 2022-01-07 09:53 | disposition home or self-care (01) ==
LOC: HO.LAB 09:52
PROVIDERS: PCP Hospitalist; Visit Provider Nurse Practitioner Family
DX: R10.12 Left upper quadrant pain (principal)
CPT/HCPCS: 36415; 82150; 83690

== ENCOUNTER 2022-02-23 08:47 | Outpatient (REF) | payer OTHER, SELFPAY ==
[2022-02-23 09:18] LABS: Binax Internal Control QC Valid; Binax Now Covid-19 Ag Negative (Negative); Binax Performed by: HO.BONILM
== END 2022-02-23 08:48 | disposition home or self-care (01) ==
LOC: HO.HMGCLDS 08:47
PROVIDERS: PCP Hospitalist; Visit Provider Internal Medicine
DX: Z20.822 Contact with and (suspected) exposure to COVID-19 (principal); J06.9 Acute upper respiratory infection, unspecified
CPT/HCPCS: 87811; C9803

== ENCOUNTER → 2022-03-23 09:46 | Outpatient (BNVA) | payer OTHER, SELFPAY | PROVIDERS: PCP Hospitalist; Visit Provider Advanced Practice Midwife | DX: Z30.432 Encounter for removal of intrauterine contraceptive device (principal) | CPT/HCPCS: 58301 ==

== ENCOUNTER 2022-04-05 08:08 | Emergency (ER) | payer OTHER, SELFPAY ==
[2022-04-05 08:17] VITALS: BP 121/95; BP 127/60; PULSE 65; PULSE 70; RESP 16; TEMP 36.6; O2SAT 100; O2SAT 98; BMI 33.2
--- NOTE | 2022-04-05 08:27 | ED_ITS ---
HPI - Nausea/Vomiting/Diarrhea General Chief complaint: Nausea/Vomiting/Diarrhea Stated complaint: etoh Time Seen by Provider: 04/05/22 08:21 Source: patient Mode of arrival: ambulatory Limitations: no limitations History of Present Illness HPI Narrative: 21 yo female here complaints of upper abdominal pain, vomiting and diarrhea since last night. Patient reports she was at a friend's house drinking alcohol and eating some food. When she got home she started to have vomiting and diarrhea. No reports of fevers, chills, difficulty breathing, chest pain, urinary symptoms. Emesis is nonbloody and nonbilious. No black or bloody stools Associated nausea: Yes Related Data Home Medications Medication Instructions Recorded Confirmed escitalopram oxalate 10 mg tablet 0 mg PO 02/23/22 Previous Rx's Medication Instructions Recorded norgestrel 0.3 mg-ethinyl 1 tab PO DAILY #28 tabs 03/23/22 estradiol 30 mcg tablet ondansetron 4 mg disintegrating 4 mg PO Q6H PRN nausea and 04/05/22 tablet vomiting #10 tabs Allergies Allergy/AdvReac Type Severity Reaction Status Date / Time amoxicillin [AMOXICILLIN] Allergy Intermediate UTICARIA Verified 03/23/22 09:57 Review of Systems Review of Systems: Yes all other systems are reviewed and are negative Constitutional: Constitutional: Reports no additional constitutional complaints, Denies body ache(s), Denies chills, Denies fever(s), Denies headache(s) and Denies weakness Eyes: Eyes: Reports no additional eye complaints and Denies change in vision ENT: Reports system reviewed and no additional complaints, except as documented, Denies dizziness, Denies headache(s), Denies nasal congestion, Denies nasal discharge and Denies neck pain Cardiovascular: Cardiovascular: Reports no additional cardiovascular complaints, Denies chest pain, Denies leg edema and Denies dyspnea Respiratory: Respiratory: Reports no additional respiratory complaints, Denies cough and Denies dyspnea Gastrointestinal: Gastrointestinal: Reports no additional gastrointestinal complaints, Reports abdominal pain, Denies hematochezia, Reports diarrhea, Reports nausea, Reports vomiting and Denies hematemesis Genitourinary: Genitourinary: Reports no additional female genitourinary complaints and Denies urinary incontinence Musculoskeletal: Musculoskeletal: Reports no additional musculoskeletal complaints, Denies back pain, Denies arthralgias, Denies joint swelling, Denies neck pain, Denies numbness and Denies tingling Integumentary/Breasts: Skin/Breast: Reports system reviewed and no additional complaints, except as docu and Denies rash Neurologic: Reports system reviewed and no additional complaints, except as documented, Denies Abnormal speech present, Denies dizziness, Denies headache(s), Denies numbness, Denies tingling and Denies weakness PMFSH Past Medical History Attestation statement: The following information was validated with the patient. Source: old records reviewed and nursing notes reviewed Medical History ADHD Genital herpes History of abnormal cervical Pap smear Obesity (BMI 30.0-34.9) Sacrococcygeal pilonidal cyst Family History Family History Other Substance use disorder Social History Social History Housing: House Alcohol intake: never Patient Tobacco Use Status: Never used Tobacco e-Cigarette/Vaping Use: Never Used Second Hand Smoke Exposure: No Substance Use Type: Marijuana Advance Directives: No Advance Directives Information Provided: No service: No Current occupational status: employed Current occupational exposures/hazards: No Sexual orientation: Straight/Heterosexual Cognitive needs: No Hearing needs: No Vision needs: Yes Physical Exam Vital Signs: Vital Signs: Last Vital Signs Temp 98.6 F 04/05/22 10:45 Pulse 72 04/05/22 10:45 Resp 12 04/05/22 10:45 BP 135/79 04/05/22 10:45 Pulse Ox 95 04/05/22 10:45 O2 Del Method 04/05/22 10:45 BMI result Body Mass Index 33.2 Const: Other: Actively vomiting General: alert Orientation/consciousness: patient oriented x3 Limitations: no limitations HEENT: Head: Yes normal to inspection Ears: hearing grossly normal bilaterally General nose exam: Normal external nose present Face and si nus: Yes normal facial exam Mouth: Normal oral and palatal mucosa present Throat: Yes posterior oropharynx normal Eyes: General: appearance normal, both eyes and all related structures Pupils: Equal, round and reactive pupils present Neck: Neck: Yes normal visual inspection Chest: Chest palpation & inspection: normal inspection of the chest Resp: Effort & Inspection: normal respiratory effort Auscultation: clear to auscultation bilaterally Cardio: Rate: regular rate Rhythm: regular rhythm Peripheral pulses: Peripheral pulses 2+ throughout GI: Inspection: Yes normal to inspection Palpation (GI): Soft to palpation and Tenderness to palpation present (GI) (Epigastric tenderness with no rebound or guarding) Auscultation: normal bowel sounds Back/Spine/Pelvis: Thoracic/Lumbar Spine: thoracic and lumbar spine normal to inspection Skin: General skin exam: no rashes or lesions noted Neuro: General: patient oriented x3, no focal motor deficits and normal sensation to monofilament Cranial nerves: Yes Equal, round and reactive pupils present Cognition (Neuro): normal cognition Speech: No Abnormal sp eech present Gait exam (Neuro): Normal gait present Motor exam (neuro): 5/5 motor strength present throughout Extrem: General: Yes normal to inspection Course Course Course Narrative: Labs, UA, covid and flu testing unremarkable. Patient feeling improved after antiemetic, IVF. Tolerating PO. Likely secondary to alcohol use. Will discharge home with antiemetic PRN. Reviewed worrisome signs/symptoms with patient and when to seek additional care. Comfortable with discharge home. Medications Administered Discontinued Medications Generic Name Dose Route Start Last Admin Trade Name Freq PRN Reason Stop Dose Admin Diphenhydramine HCl 25 mg 04/05/22 12:17 04/05/22 12:28 Diphenhydramine Hcl 50 Mg/Ml Vial IVPUSH 04/05/22 12:18 25 mg ONCE ONE Administration Famotidine 20 mg 04/05/22 08:25 04/05/22 09:18 Famotidine/Pf 20 Mg/2 Ml Vial IVPUSH 04/05/22 08:26 20 mg ONCE ONE Administration Sodium Chloride 1,000 mls @ 999 mls/hr 04/05/22 08:30 04/05/22 10:31 Ns IV 04/05/22 09:30 Infused .Q1H1M PRACHI Infusion Sodium Chloride 1,000 mls @ 999 mls/hr 04/05/22 12:17 04/05/22 14:17 Ns IV 04/05/22 13:17 Infused .Q1H1M STA Infusion Metoclopramide HCl 10 mg 04/05/22 12:17 04/05/22 12:28 Metoclopramide Hcl 10 Mg/2 Ml Vial IVPUSH 04/05/22 12:18 10 mg ONCE ONE Administration Ondansetron HCl 4 mg 04/05/22 08:25 04/05/22 09:18 Ondansetron Hcl 4 Mg/2 Ml Vial IVPUSH 04/05/22 08:26 4 mg ONCE ONE Administration MDM - Nausea/Vomiting/Diarrhea MDM Narrative Medical decision making narrative: 21-year-old female here with upper abdominal pain, vomiting and diarrhea since last evening. Patient reports she was at a friend's house eating food and drink ing alcohol. On exam patient has upper abdominal tenderness with no rebound or guarding. She is actively vomiting. Her vitals are stable. Will place IV and give IV fluids, antiemetic, check labs, UA, COVID and flu screening Medical Records Attestation: I reviewed the patient's medical records. Lab Data Attestation: I reviewed the patient's lab results. Result diagrams: 04/05/22 09:16 04/05/22 09:16 Labs: Lab Results 04/05/22 04/05/22 04/05/22 Range/Units 09:16 09:16 09:16 WBC 9.7 (4.8-10.8) X10*3/uL RBC 4.39 (4.20-5.50) X10*6/uL Hgb 13.9 (12.0-16.0) g/dl Hct 40.4 (37.0-47.0) % MCV 92.0 (80.0-98.0) fL MCH 31.7 (27.0-33.0) pg MCHC 34.4 (31.0-35.0) g/dl RDW 12.5 (11.0-16.0) % Plt Count 202 D (160-400) X10*3/uL MPV 11.3 (9.4-12.3) fL Immature Gran % (Auto) 0.3 (0.0-0.4) % Neut % (Auto) 76.7 H (45-73) % Lymph % (Auto) 17.6 L (20-40) % [place] % (Auto) 4.9 (2-11) % Eos % (Auto) 0.1 (0-4) % Baso % (Auto) 0.4 (0-2) % Lymph # (Auto) 1.7 (1.2-4.9) X10*3/uL [place] # (Auto) 0.5 (0.1-1.2) X10*3/uL Eos # (Auto) 0.0 (0.0-0.4) X10*3/uL Baso # (Auto) 0.0 (0.0-0.2) X10*3/uL Abs Immat Gran (auto) 0.03 (0.00-0.03) X10*3/uL Absolute Neuts (auto) 7.4 (2.0-8.3) x10*3/uL Absolute Nucleated RBC 0.000 (0.0-0.012) X10*3/uL Nucleated RBC % (auto) 0.0 (0.0-0.2) /100WBC Sodium 138 (135-145) mmol/L Potassium 4.0 (3.3-5.1) mmol/L Chloride 105 (96-108) mmol/L Carbon Dioxide 17 L (22-29) mmol/L Anion Gap 20 (12-20) BUN 11 (9-16) mg/dL Creatinine 0.74 (0.5-1.4) mg/dL Estim Creat Clear Calc 140.8 Estimated GFR > 60 Random Glucose 114 (60-115) mg/dL Calcium 9.7 (8.4-10.2) mg/dL Total Bilirubin 0.5 (0.0-1.0) mg/dL Direct Bilirubin 0.2 (0.0-0.5) mg/dL AST 16 (5-31) U/L ALT 14 (0-31) U/L Alkaline Phosphatase 49 (39-117) U/L Total Protein 7.7 (6.5-8.0) g/dL Albumin 4.8 (3.5-5.0) g/dL Urine Color Urine Appearance Urine pH (5.0-9.0) Ur Specific [place] (1.005-1.025) Urine Protein (Neg-Trace) mg/dL Urine Glucose (UA) (Negative) mg/dL Urine Ketones (Negative) mg/dL Urine Blood (Negative) Urine Nitrite (Negative) Ur Leukocyte Esterase (Negative) Urine Test (NEGATIVE) COVID-19 (SUKHJINDER) (Negative) COVID-19 Clin Com Influenza Type A (BAILEE) Negative (Negative) Influenza Type B (BAILEE) Negative (Negative) Influenza A & B Note See Note 04/05/22 04/05/22 04/05/22 Range/Units 09:16 11:29 11:29 WBC (4.8-10.8) X10*3/uL RBC (4.20-5.50) X10*6/uL Hgb (12.0-16.0) g/dl Hct (37.0-47.0) % MCV (80.0-98.0) fL MCH (27.0-33.0) pg MCHC (31.0-35.0) g/dl RDW (11.0-16.0) % Plt Count (160-400) X10*3/uL MPV (9.4-12.3) fL Immature Gran % (Auto) (0.0-0.4) % Neut % (Auto) (45-73) % Lymph % (Auto) (20-40) % [place] % (Auto) (2-11) % Eos % (Auto) (0-4) % Baso % (Auto) (0-2) % Lymph # (Auto) (1.2-4.9) X10*3/uL [place] # (Auto) (0.1-1.2) X10*3/uL Eos # (Auto) (0.0-0.4) X10*3/uL Baso # (Auto) (0.0-0.2) X10*3/uL Abs Immat Gran (auto) (0.00-0.03) X10*3/uL Absolute Neuts (auto) (2.0-8.3) x10*3/uL Absolute Nucleated RBC (0.0-0.012) X10*3/uL Nucleated RBC % (auto) (0.0-0.2) /100WBC Sodium (135-145) mmol/L Potassium (3.3-5.1) mmol/L Chloride (96-108) mmol/L Carbon Dioxide (22-29) mmol/L Anion Gap (12-20) BUN (9-16) mg/dL Creatinine (0.5-1.4) mg/dL Estim Creat Clear Calc Estimated GFR Random Glucose (60-115) mg/dL Calcium (8.4-10.2) mg/dL Total Bilirubin (0.0-1.0) mg/dL Direct Bilirubin (0.0-0.5) mg/dL AST (5-31) U/L ALT (0-31) U/L Alkaline Phosphatase (39-117) U/L Total Protein (6.5-8.0) g/dL Albumin (3.5-5.0) g/dL Urine Color Yellow Urine Appearance Clear Urine pH 7.5 (5.0-9.0) Ur Specific [place] 1.020 (1.005-1.025) Urine Protein Negative (Neg-Trace) mg/dL Urine Glucose (UA) Negative (Negative) mg/dL Urine Ketones 40 (Negative) mg/dL Urine Blood Negative (Negative) Urine Nitrite Negative (Negative) Ur Leukocyte Esterase Negative (Negative) Urine Test NEGATIVE (NEGATIVE) COVID-19 (SUKHJINDER) Negative (Negative) COVID-19 Clin Com See Note Influenza Type A (BAILEE) (Negative) Influenza Type B (BAILEE) (Negative) Influenza A & B Note Discharge Plan Discharge Clinical Impression: Vomiting Patient Disposition: Home, Self-Care Instructions: Acute Nausea and Vomiting (ED) Additional Instructions: Covid and flu testing are negative Start with clear liquids then advance diet as tolerated Prescriptions: New ondansetron 4 mg tablet,disintegrating 4 mg PO Q6H PRN (Reason: nausea and vomiting) Qty: 10 0RF No Action escitalopram oxalate 10 mg tablet 0 mg PO norgestrel-ethinyl estradiol 0.3-30 mg-mcg tablet 1 tab PO DAILY Qty: 28 3RF Referrals: Sri Combs NP [Primary Care Provider] - 1 week Interventions: ED Discharge Assessment Last Done: 04/05/22 14:29 Discharge Date/Time: 04/05/22 14:31
[2022-04-05] MEDS: Famotidine/PF 20 MG/2 ML VIAL IVPUSH (09:18)
[2022-04-05] MEDS: 0.9 % Sodium Chloride 1,000 ML 999 ML IV ×2 (09:18→12:27)
[2022-04-05] MEDS: ondansetron HCL 4 MG/2 ML VIAL IVPUSH (09:18)
[2022-04-05 09:22] LABS: Basophils Percent Auto 0.4 % (0-2); Eosinophils Percent Auto 0.1 % (0-4); Hematocrit 40.4 % (37.0-47.0); Hemoglobin 13.9 g/dl (12.0-16.0); Imm Gran Abs Auto 0.03 X10*3/uL (0.00-0.03); Imm Gran Pct Auto 0.3 % (0.0-0.4); Lymphocytes Absolute Auto 1.7 X10*3/uL (1.2-4.9); Lymphocytes Percent Auto 17.6 % (20-40); MANUAL DIFF FLAG NO; Mean Corpuscular HGB Conc 34.4 g/dl (31.0-35.0); Mean Corpuscular Hemoglobin 31.7 pg (27.0-33.0); Mean Platelet Volume 11.3 fL (9.4-12.3); Monocytes Absolute Auto 0.5 X10*3/uL (0.1-1.2); Monocytes Percent Auto 4.9 % (2-11); Neutrophils Absolute Auto 7.4 x10*3/uL (2.0-8.3); Neutrophils Percent Auto 76.7 % (45-73); Platelet Count 202 X10*3/uL (160-400); Red Blood Count 4.39 X10*6/uL (4.20-5.50); Red Cell Distribution Width 12.5 % (11.0-16.0); White Blood Count 9.7 X10*3/uL (4.8-10.8)
[2022-04-05 09:40] LABS: Alanine Aminotransferase 14 U/L (0-31); Albumin Level 4.8 g/dL (3.5-5.0); Alkaline Phosphatase 49 U/L (39-117); Anion Gap 20 (12-20); Aspartate Amino Transferase 16 U/L (5-31); Bilirubin Direct 0.2 mg/dL (0.0-0.5); Bilirubin Total 0.5 mg/dL (0.0-1.0); Blood Urea Nitrogen 11 mg/dL (9-16); Calcium 9.7 mg/dL (8.4-10.2); Carbon Dioxide 17 mmol/L (22-29); Chloride 105 mmol/L (96-108); Creatinine Clr Calc Pharmacy 140.8; Estimated Glomerular Filt Rate > 60; Glucose Random 114 mg/dL (60-115); Sodium 138 mmol/L (135-145); Total Protein 7.7 g/dL (6.5-8.0)
[2022-04-05 09:44] LABS: COVID-19 Test Negative (Negative); IDNOW Serial# 16C4AD1C; IDNOW Serial# BCCEAD1C; Influenza A Negative (Negative); Influenza B2 Negative (Negative)
--- NOTE | 2022-04-05 10:32 | PC.NURSE ---
PT CONTINUES TO DRY HEAVE AND VOMIT STOMACH CONTENTS AFTER PO ICE CHIPS. IV FLUIDS INFUSED. AWAITING IMPROVEMENT
[2022-04-05 10:45] VITALS: BP 135/79; PULSE 72; RESP 12; TEMP 37; O2SAT 95
[2022-04-05 11:38] LABS: Appearance Urine Clear; Color Urine Yellow; Glucose Urine UA Negative (Negative); Leukocyte Esterase Urine Negative (Negative); Nitrite Urine Negative (Negative); PH 7.5 (5.0-9.0); Urine Blood Negative (Negative); Urine Ketones 40 mg/dL (Negative); Urine Protein Negative (Neg-Trace)
[2022-04-05 11:39] LABS: UPreg QC Valid YES; Urine Pregnancy NEGATIVE (NEGATIVE)
[2022-04-05] MEDS: Metoclopramide HCl 10 MG/2 ML VIAL IVPUSH (12:28)
[2022-04-05] MEDS: diphenhydrAMINE HCL 50 MG/ML VIAL 25 MG IVPUSH (12:28)
--- NOTE | 2022-04-05 13:59 | PC.NURSE ---
no further vomiting, plan is for discharge
== END 2022-04-05 14:31 | disposition home or self-care (01) ==
PROVIDERS: Nurse Practitioner Family; Emergency Provider Emergency Medicine; PCP Hospitalist
DX: R11.2 Nausea with vomiting, unspecified (principal); R19.7 Diarrhea, unspecified; Z20.822 Contact with and (suspected) exposure to COVID-19; Z79.899 Other long term (current) drug therapy
CPT/HCPCS: 80048; 80076; 81003; 81025; 85025; 87502; 87635; 96361; 96374; 96375; 99284; J1200; J2405; J2765

== ENCOUNTER 2022-04-09 11:58 | Outpatient (REF) | payer OTHER, SELFPAY ==
[2022-04-09 15:05] LABS: Influenza A PCR POSITIVE (Negative); Influenza B PCR NEGATIVE (Negative); Resp Syncy Virus RNA Qual PCR NEGATIVE (Negative); SARS COV2 PCR INHOUSE NEGATIVE (Negative)
== END 2022-04-09 11:59 | disposition home or self-care (01) ==
LOC: HO.LAB 11:58
PROVIDERS: Visit Provider Hospitalist
DX: Z20.822 Contact with and (suspected) exposure to COVID-19 (principal); J98.8 Other specified respiratory disorders; B97.89 Other viral agents as the cause of diseases classified elsewhere
CPT/HCPCS: 0241U

== ENCOUNTER 2022-08-18 22:19 | Emergency (ER) | payer OTHER, SELFPAY ==
[2022-08-18 22:44] VITALS: BP 132/87; PULSE 70; RESP 22; TEMP 37.2; O2SAT 98; BMI 31.9
[2022-08-18 23:17] VITALS: BP 132/89; PULSE 70; RESP 14; TEMP 35.4; O2SAT 100
[2022-08-18 23:28] LABS: Hematocrit 43.4 % (37.0-47.0); Hemoglobin 14.8 g/dl (12.0-16.0); Mean Corpuscular HGB Conc 34.1 g/dl (31.0-35.0); Mean Corpuscular Hemoglobin 31.6 pg (27.0-33.0); Mean Corpuscular Volume 92.5 fL (80.0-98.0); Platelet Count 238 X10*3/uL (160-400); Red Blood Count 4.69 X10*6/uL (4.20-5.50); Red Cell Distribution Width 12.3 % (11.0-16.0); White Blood Count 22.2 X10*3/uL (4.8-10.8)
[2022-08-18 23:43] LABS: Alanine Aminotransferase 13 U/L (0-31); Albumin Level 4.6 g/dL (3.5-5.0); Alkaline Phosphatase 51 U/L (39-117); Anion Gap 16 (12-20); Aspartate Amino Transferase 19 U/L (5-31); Bilirubin Total 0.4 mg/dL (0.0-1.0); Blood Urea Nitrogen 14 mg/dL (9-16); Calcium 9.5 mg/dL (8.4-10.2); Carbon Dioxide 23 mmol/L (22-29); Chloride 106 mmol/L (96-108); Creatinine Clr Calc Pharmacy 138.9; Estimated Glomerular Filt Rate > 60; Glucose Random 114 mg/dL (60-115); Lipase 21 U/L (8-78); Potassium 3.6 mmol/L (3.3-5.1); Sodium 141 mmol/L (135-145); Total Protein 7.5 g/dL (6.5-8.0)
--- NOTE | 2022-08-18 23:50 | ED_ITS ---
HPI - Nausea/Vomiting/Diarrhea General Chief complaint: Abdominal Pain Stated complaint: vomiting Time Seen by Provider: 08/18/22 23:47 Source: patient Mode of arrival: ambulatory Limitations: no limitations History of Present Illness HPI Narrative: Patient with history of anxiety and cannabis abuse history of vomiting comes here for vomiting started at 21:00 multiple times with diffuse abdominal pain no fever no chills with history of same in the past Related Data Home Medications Medication Instructions Recorded Confirmed escitalopram oxalate 10 mg tablet 0 mg PO 02/23/22 06/16/22 hydroxyzine pamoate 25 mg capsule 25 - 50 mg PO BEDTIME 04/09/22 06/16/22 Previous Rx's Medication Instructions Recorded norgestrel 0.3 mg-ethinyl 1 tab PO DAILY #28 tabs 03/23/22 estradiol 30 mcg tablet ondansetron 4 mg disintegrating 4 mg PO Q6H PRN nausea and 04/05/22 tablet vomiting #10 tabs Allergies Allergy/AdvReac Type Severity Reaction Status Date / Time amoxicillin [AMOXICILLIN] Allergy Intermediate UTICARIA Verified 06/16/22 12:09 Review of Systems Review of Systems: Yes all other systems are reviewed and are negative PMFSH Past Medical History Medical History ADHD Genital herpes History of abnormal cervical Pap smear Obesity (BMI 30.0-34.9) Sacrococcygeal pilonidal cyst Family History Family History Other Substance use disorder Social History Social History Housing: House Alcohol intake: never Patient Tobacco Use Status: Never used Tobacco Smoked in Last 30 Days: No e-Cigarette/Vaping Use: Never Used Second Hand Smoke Exposure: No Use of substances other than those prescribed or required for medical reasons: Yes Substance Use Type: Marijuana Substance Use Frequency: Daily Last Used Substance: Hours (ago) Any prior treatment program specific to substance use: No Advance Directives: No Advance Directives Information Provided: Yes service: No Current occupational status: employed Current occupational exposures/hazards: No Sexual orientation: Straight/Heterosexual Cognitive needs: No Hearing needs: No Vision needs: Yes Physical Exam Vital Signs: Vital Signs: Last Vital Signs Temp 97.5 F 08/19/22 02:17 Pulse 87 08/19/22 02:17 Resp 18 08/19/22 02:17 BP 112/64 08/19/22 02:17 Pulse Ox 99 08/19/22 02:17 O2 Del Method Room Air 08/19/22 02:17 BMI result Body Mass Index 31.9 Appearance: Alert. Oriented X3. No acute distress. Eyes: PERRLA, No Nystagmus ENT: Pharynx normal. Oral Mucosa moist Neck: Normal inspection. Neck supple. CVS: Normal heart rate and rhythm. Pulses normal. Respiratory: No respiratory distress. Equal air entry bilateral, no wheezing/rales/rhonchi Abdomen: Soft , diffuse tenderness no rebound tenderness or guarding Bowel sounds are present, no mass palpable, no CVA tenderness Skin: Skin warm and dry. Normal skin color. Normal skin turgor. Extremities: No lower extremity edema. No calf tenderness Neuro: Oriented X 3. No motor deficit. No sensory deficit.No cerebellar signs , cranial nerves II-XII intact Medications Administered Discontinued Medications Generic Name Dose Route Start Last Admin Trade Name Freq PRN Reason Stop Dose Admin Sodium Chloride 1,000 mls @ 999 mls/hr 08/18/22 23:50 08/19/22 01:22 Ns IV 08/19/22 00:50 Infused .Q1H1M ONE Infusion Sodium Chloride 1,000 mls @ 999 mls/hr 08/19/22 01:26 08/19/22 02:40 Ns IV 08/19/22 02:26 Infused .Q1H1M ONE Infusion Lorazepam 1 mg 08/18/22 23:50 08/19/22 00:11 Lorazepam 2 Mg/Ml Vial IVPUSH 08/18/22 23:51 1 mg ONCE ONE Administration Lorazepam 1 mg 08/19/22 01:26 08/19/22 01:39 Lorazepam 2 Mg/Ml Vial IVPUSH 08/19/22 01:27 1 mg ONCE ONE Administration Ondansetron HCl 4 mg 08/19/22 01:26 08/19/22 01:39 Ondansetron Hcl 4 Mg/2 Ml Vial IVPUSH 08/19/22 01:27 4 mg ONCE ONE Administration Prochlorperazine Edisylate 10 mg 08/18/22 23:50 08/19/22 00:11 Prochlorperazine Edisylate 10 Mg/2 Ml Vial IVPUSH 08/18/22 23:51 10 mg ONCE ONE Administration Medical Decision Making Medical Decision Making [facility] Narrative: Patient with cyclic/cannabis induced vomiting improved after Ativan and Zofran taking p.o. fluids will discharge patient home advised to follow-up with o utpatient no findings of acute abdomen due to the status is from dehydration/leukemoid reaction Lab Data [facility] Lab Attestation statement: I reviewed the patient's lab results. 08/18/22 23:15 08/18/22 23:15 Labs: Lab Results 08/18/22 08/18/22 Range/Units 23:15 23:15 WBC 22.2 H (4.8-10.8) X10*3/uL RBC 4.69 (4.20-5.50) X10*6/uL Hgb 14.8 (12.0-16.0) g/dl Hct 43.4 (37.0-47.0) % MCV 92.5 (80.0-98.0) fL MCH 31.6 (27.0-33.0) pg MCHC 34.1 (31.0-35.0) g/dl RDW 12.3 (11.0-16.0) % Plt Count 238 (160-400) X10*3/uL MPV 11.0 (9.4-12.3) fL Absolute Nucleated RBC 0.000 (0.0-0.012) X10*3/uL Nucleated RBC % (auto) 0.0 (0.0-0.2) /100WBC Sodium 141 (135-145) mmol/L Potassium 3.6 (3.3-5.1) mmol/L Chloride 106 (96-108) mmol/L Carbon Dioxide 23 (22-29) mmol/L Anion Gap 16 (12-20) BUN 14 (9-16) mg/dL Creatinine 0.76 (0.5-1.4) mg/dL Estim Creat Clear Calc 138.9 Estimated GFR > 60 Random Glucose 114 (60-115) mg/dL Calcium 9.5 (8.4-10.2) mg/dL Total Bilirubin 0.4 (0.0-1.0) mg/dL AST 19 (5-31) U/L ALT 13 (0-31) U/L Alkaline Phosphatase 51 (39-117) U/L Total Protein 7.5 (6.5-8.0) g/dL Albumin 4.6 (3.5-5.0) g/dL Lipase 21 (8-78) U/L Discharge Plan Discharge Clinical Impression: Cyclic vomiting syndrome, Cannabis abuse with cannabis-induced disorder Patient Disposition: Home, Self-Care Instructions: Cannabis Abuse (ED), Cyclic Vomiting Syndrome (ED) Additional Instructions: Stop smoking marijuana Your vomiting is likely secondary to cannabis use Take your anxiety medication Prescriptions: No Action ondansetron 4 mg tablet,disintegrating 4 mg PO Q6H PRN (Reason: nausea and vomiting) Qty: 10 0RF escitalopram oxalate 10 mg tablet 0 mg PO hydroxyzine pamoate 25 mg capsule 25 - 50 mg PO BEDTIME norgestrel-ethinyl estradiol 0.3-30 mg-mcg tablet 1 tab PO DAILY Qty: 28 3RF Interventions: ED Discharge Assessment Last Done: 08/19/22 03:20 Discharge Date/Time: 08/19/22 03:26
[2022-08-19] MEDS: LORazepam 2 MG/ML VIAL 1 MG IVPUSH ×2 (00:11→01:39)
[2022-08-19] MEDS: Prochlorperazine Edisylate 10 MG/2 ML VIAL IVPUSH (00:11)
[2022-08-19] MEDS: 0.9 % Sodium Chloride 1,000 ML 999 ML IV ×2 (00:12→01:39)
[2022-08-19] MEDS: ondansetron HCL 4 MG/2 ML VIAL IVPUSH (01:39)
[2022-08-19 02:17] VITALS: BP 112/64; PULSE 87; RESP 18; TEMP 36.4; O2SAT 99
== END 2022-08-19 03:26 | disposition home or self-care (01) ==
PROVIDERS: Emergency Provider Internal Medicine; PCP Family Medicine
DX: F12.19 Cannabis abuse with unspecified cannabis-induced disorder (principal); R11.15 Cyclical vomiting syndrome unrelated to migraine; Z79.899 Other long term (current) drug therapy
CPT/HCPCS: 36415; 80053; 83690; 85027; 96361; 96374; 96375; 96376; 99283; 99284; 99285; J2060; J2405

== ENCOUNTER 2022-09-01 07:59 | Outpatient (REF) | payer OTHER, SELFPAY ==
[2022-09-01 14:43] LABS: CT PCR NOT DETECTED (Not Detect.); NG PCR NOT DETECTED (Not Detect.)
== END 2022-09-01 08:00 | disposition home or self-care (01) ==
LOC: HO.LNP 07:59
PROVIDERS: PCP Family Medicine; Visit Provider Advanced Practice Midwife
DX: Z01.419 Encounter for gynecological examination (general) (routine) without abnormal findings (principal); Z20.2 Contact with and (suspected) exposure to infections with a predominantly sexual mode of transmission
CPT/HCPCS: 0353U; 88142

== ENCOUNTER 2022-12-10 08:25 | Outpatient (AMB) | payer OTHER, SELFPAY ==
--- NOTE | 2022-12-10 08:40 | AM.OFFWIN_ITS ---
Intake Vital Signs 12/10/22 08:41 BP 120/72 Blood Pressure Location Lt brachial Position Sitting Respiration 20 Pulse 90 Pulse Source Pulse Oximeter Temp 98.1 F Temp Source Oral Pulse Oximetry (%) 98 Oxygen Delivery Method Room Air Intake Visit Reasons: EP, Sore throat (masked)(mandeep) Patient Tobacco Use Status: Never used Tobacco Photograph Developer Required: No Is last menstrual period known: Yes Last menstrual period: 12/03/22 Post menopausal: No Patient : No Allergies amoxicillin [AMOXICILLIN] Allergy (Intermediate, Verified 12/10/22 08:43) UTICARIA Medication List - Last Reconciled 12/10/22 by Daniela Simpson RN escitalopram oxalate 0 mg PO hydroxyzine pamoate 25 - 50 mg PO BEDTIME norgestrel-ethinyl estradiol 0.3-30 mg-mcg 1 tab PO DAILY ondansetron 4 mg PO TID PRN Do you need a note to return to daycare/school/sports/work: Yes Return to daycare/school/sports/work/other note: work HPI HPI Comments History of Present Illness Details 22-year-old female presents with 1 day of sore throat. Patient states she has experienced burning in the back of her throat pain with eating and swallowing. She denies fevers or chills his endorse a little bit of uncomfortable it with breathing. She has a history of viral pharyngitis and tonsil stones but denies history of strep. [facility] Medical History ADHD Genital herpes History of abnormal cervical Pap smear Obesity (BMI 30.0-34.9) Sacrococcygeal pilonidal cyst Family History Paternal Grandmother Lung cancer History of breast cancer Paternal Grandfather Liver cancer Prostate cancer Other Substance use disorder Social History Housing: House Alcohol intake: current Alcohol intake frequency: a few times a week Patient Tobacco Use Status: Never used Tobacco e-Cigarette/Vaping Use: Never Used Second Hand Smoke Exposure: No Substance Use Type: Marijuana Patient : No service: No Current occupational status: employed Current occupational exposures/hazards: No Sexual orientation: Straight/Heterosexual Gender identity: Female Cognitive needs: No Hearing needs: No Vision needs: Yes Female Reproductive History Menstrual Age of Menarche: 10 Date of last menstrual period: 12/03/22 Review of Systems Const All systems reviewed & are unremarkable except as noted in HPI and below Eyes Reports as per HPI ENT Reports sore throat Physical Exam Vital Signs: Last Vital Signs Temp 98.1 F 12/10/22 08:41 Pulse 90 12/10/22 08:41 Resp 20 12/10/22 08:41 BP 120/72 12/10/22 08:41 Pulse Ox 98 12/10/22 08:41 Oxygen Delivery Method Room Air 12/10/22 08:41 HEENT Other: 2+ tonsils bilaterally tonsillith appreciated on the right posterior tonsil no exudates no posterior erythema. Results AMB Rapid Strep AMB Rapid Strep Negative Last Edit by Daniela Simpson RN on 12/10/22 08:47 Results Reviewed Results Reviewed: Laboratory Last Values Strep Scn Rapid Clinic Negative 12/10/22 08:46 Assessment & Plan Assessment & Plan (1) Viral pharyngitis: Code(s): J02.9 - Acute pharyngitis, unspecified Plan VSS. On exam patient presents alert and oriented no acute distress exam is notable for the above findings. Rapid strep performed and negative patient likely suffering from viral pharyngitis. Discharge instructions, follow up and treatment are discussed with patient in my usual fashion. Alternatives in treatment are also discussed. The patient will return for worsening symptoms or as needed. Advised that any labs/imaging ordered will be followed up on and contact made if further treatment needed. Counseled that patient's condition may require further evaluation and/or treatment. Symptoms of concern for worsening disorder discussed in detail in my customary manner. Patient does verbalize understanding of the plan, there are no apparent barriers to communication. The patient is given the opportunity to ask questions and have them answered to his/her satisfaction Orders: Orders AMB Rapid Strep Screen Today J02.9 - Acute pharyngitis, unspecified Patient Instructions: Your rapid strep test is negative, In the meantime soothing relief is often obtained from the following: a cup of tea with honey a cup of tea with lemon hot chocolate Chicken bullion or soup warm salt water gargles or baking soda. Mix 1 teaspoon of salt with 1 cup of water gargle for 5 to 10 seconds and then spit and repeat as needed. You can also do this with 1 teaspoon of baking soda. There are many [id number]-[id number] medications to help soothe a sore throat I would suggest: CEPACOL LOZENGES CHLORASEPTIC THROAT SPRAY. There are many others.. Coding Level of Care Code Est Pt Level 3 (13954) Diagnoses Viral pharyngitis J02.9
[2022-12-10 08:41] VITALS: BP 120/72; PULSE 90; RESP 20; TEMP 36.7; O2SAT 98
== END 2022-12-10 08:57 | disposition home or self-care (01) ==
PROVIDERS: PCP Hospitalist; Visit Provider Physician Assistant
DX: J02.9 Acute pharyngitis, unspecified (principal)
CPT/HCPCS: 87880; 99213

== ENCOUNTER 2023-05-07 13:03 | Emergency (ER) | payer OTHER, SELFPAY ==
--- NOTE | ~2023-05-07 | US_ITS ---
EXAMINATION: US ABDOMEN LIMITED CLINICAL INFORMATION: Abdominal pain and right upper quadrant tenderness. COMPARISON: None available. TECHNIQUE: Real-time imaging of the right upper quadrant abdominal viscera. Gallbladder, bile duct images only needed per provider FINDINGS: GALLBLADDER: Normal. The gallbladder is physiologically distended without evidence of stones, sludge, polyps, wall thickening or pericholecystic fluid. COMMON BILE DUCT: Normal in caliber measuring 0.3 cm in diameter. FREE FLUID: None. US/US abdomen limited IMPRESSION: Unremarkable gallbladder.
[2023-05-07 14:20] VITALS: BP 117/48; PULSE 72; RESP 16; TEMP 36.8; O2SAT 99
--- NOTE | 2023-05-07 14:24 | ED_ITS ---
HPI - General Adult General Chief complaint: Nausea/Vomiting/Diarrhea Stated complaint: Stomach Pain Time Seen by Provider: 05/07/23 18:57 History of Present Illness HPI narrative: Says that she developed symptoms this morning at around 08:00. She had been fine yesterday. This morning she woke up with nausea and vomiting. She also developed left-sided abdominal pain. She has also had 2 episodes of loose stools. Similar to previous episodes of vomiting and abdominal pain she has had in the past. She has come to the emergency room for least 1 previous similar episode she says. No definite fever. Related Data Home Medications Medication Instructions Recorded Confirmed escitalopram oxalate 10 mg tablet 0 mg PO 02/23/22 12/10/22 hydroxyzine pamoate 25 mg capsule 25 - 50 mg PO BEDTIME 04/09/22 12/10/22 Previous Rx's Medication Instructions Recorded ondansetron 4 mg disintegrating 4 mg PO TID PRN nausea and 08/21/22 tablet vomiting #10 tabs norgestrel 0.3 mg-ethinyl 1 tab PO DAILY #82 tabs 09/01/22 estradiol 30 mcg tablet Allergies Allergy/AdvReac Type Severity Reaction Status Date / Time amoxicillin [AMOXICILLIN] Allergy Intermediate UTICARIA Verified 05/07/23 14:24 Review of Systems 2 Review of Systems: Yes all other systems are reviewed and are negative [facility] Past Medical History Medical History ADHD Genital herpes History of abnormal cervical Pap smear Obesity (BMI 30.0-34.9) Sacrococcygeal pilonidal cyst Family History Family History Paternal Grandmother Lung cancer History of breast cancer Paternal Grandfather Liver cancer Prostate cancer Other Substance use disorder Social History Social History Housing: House Alcohol intake: current Alcohol intake frequency: holidays/special occasions only Patient Tobacco Use Status: Never used Tobacco Smoked in Last 30 Days: No e-Cigarette/Vaping Use: Never Used Second Hand Smoke Exposure: No Use of substances other than those prescribed or required for medical reasons: Yes Substance Use Type: Marijuana Advance Directives: No Advance Directives Information Provided: No service: No Current occupational status: employed Current occupational exposures/hazards: No Sexual orientation: Straight/Heterosexual Gender identity: Female Cognitive needs: No Hearing needs: No Vision needs: Yes Physical Exam ED Vital Signs: Vital Signs - 24 hr 05/07/23 14:20 05/07/23 19:49 Temperature 98.3 F 99.0 F Pulse Rate 72 70 Respiratory Rate 16 20 Blood Pressure 117/48 L 127/59 L Pulse Oximetry 99 100 Oxygen Delivery Method Room Air Room Air BMI result Body Mass Index 30.0 Const Other: Patient was awake and alert. She was sitting on a chair crawled over and holding her belly. She looked uncomfortable. HENMT Other: Face was unremarkable. Airway clear. Mucous membranes moist. Eyes Other: Pupils round equal, conjunctivae clear, extraocular movements intact Neck Other: Moving her neck easily Resp Other: Lungs clear bilaterally Cardio Other: The patient has regular rate and rhythm with no murmur GI Other: Patient seems most tender in the right upper quadrant. Back/Spine/Pelvis Other: No definite CVA tenderness Skin Other: Skin is dry and unremarkable Neuro Other: The patient is awake and alert, pleasant cooperative, grossly neurologically intact Extrem Other: No calf swelling or tenderness Course Course Course Narrative: This is a rapid medical exam: Additional HPI, ROS, PE not included below will be deferred to primary provider. Patient is a 22-year-old female presenting to the ED with complaint of nausea and vomiting since this morning, epigastric pain, feels fatigued. Denies diarrhea. Plan: viral swabs, basic labs, UA Medications Administered Discontinued Medications Generic Name Dose Route Start Last Admin Trade Name Freq PRN Reason Stop Dose Admin Al Hydroxide/Mg Hydroxide 60 ml 05/07/23 21:11 05/07/23 21:28 Magnesium Hydrox/Alum Hydrox 30 Ml Oral.Susp PO 05/07/23 21:12 60 ml ONCE ONE Administration Droperidol 1.25 mg 05/07/23 19:02 05/07/23 19:27 Droperidol 5 Mg/2 Ml Vial IVPUSH 05/07/23 19:03 1.25 mg ONCE ONE Administration Sodium Chloride 1,000 mls @ 999 mls/hr 05/07/23 19:15 05/07/23 22:27 Ns IV 05/07/23 20:15 Infused .Q1H1M PRACHI Infusion Ketorolac Tromethamine 15 mg 05/07/23 19:02 05/07/23 19:27 Ketorolac Tromethamine 15 Mg/Ml Vial IVPUSH 05/07/23 19:03 15 mg ONCE ONE Administration Ondansetron HCl 4 mg 05/07/23 14:25 05/07/23 14:29 Ondansetron Odt 4 Mg Tab.Diann ORTEGAINGU 05/07/23 14:26 4 mg ONCE ONE Administration Medical Decision Making Medical Decision Making [facility] Narrative: The patient is a 22-year-old female who comes to the emergency room complaining of abdominal pain vomiting and diarrhea. Review of previous records indicate there has been concern about possible cannabis hyperemesis in the past. On my exam the patient was quite tender in the right upper quadrant. She therefore had an ultrasound of her gallbladder that was negative. Lab testing is unremarkable aside from her urinalysis which showed a high specific gravity and ketones. She was treated symptomatically with ketorolac and droperidol and IV fluids. She felt much better and was discharged. Lab Data 05/07/23 15:19 05/07/23 15:19 Labs: Lab Results 05/07/23 05/07/23 Range/Units 15:19 21:17 WBC 10.9 H (4.8-10.8) X10*3/uL RBC 4.49 (4.20-5.50) X10*6/uL Hgb 14.5 (12.0-16.0) g/dl Hct 42.0 (37.0-47.0) % MCV 93.5 (80.0-98.0) fL MCH 32.3 (27.0-33.0) pg MCHC 34.5 (31.0-35.0) g/dl RDW 12.9 (11.0-16.0) % Plt Count 193 (160-400) X10*3/uL MPV 11.9 (9.4-12.3) fL Immature Gran % (Auto) 0.3 (0.0-0.4) % Neut % (Auto) 85.4 H (45-73) % Lymph % (Auto) 10.4 L (20-40) % [place] % (Auto) 3.5 (2-11) % Eos % (Auto) 0.1 (0-4) % Baso % (Auto) 0.3 (0-2) % Lymph # (Auto) 1.1 L (1.2-4.9) X10*3/uL [place] # (Auto) 0.4 (0.1-1.2) X10*3/uL Eos # (Auto) 0.0 (0.0-0.4) X10*3/uL Baso # (Auto) 0.0 (0.0-0.2) X10*3/uL Abs Immat Gran (auto) 0.03 (0.00-0.03) X10*3/uL Absolute Neuts (auto) 9.3 H (2.0-8.3) x10*3/uL Absolute Nucleated RBC 0.000 (0.0-0.012) X10*3/uL Nucleated RBC % (auto) 0.0 (0.0-0.2) /100WBC Sodium 142 (135-145) mmol/L Potassium 3.7 (3.3-5.1) mmol/L Chloride 107 (96-108) mmol/L Carbon Dioxide 23 (22-29) mmol/L Anion Gap 16 (12-20) BUN 8 L (9-16) mg/dL Creatinine 0.76 (0.5-1.4) mg/dL Estim Creat Clear Calc 129.3 Estimated GFR > 60 Random Glucose 123 H (60-115) mg/dL Calcium 9.7 (8.4-10.2) mg/dL Total Bilirubin 0.7 (0.0-1.0) mg/dL AST 16 (5-31) U/L ALT 11 (0-31) U/L Alkaline Phosphatase 44 (39-117) U/L C-Reactive Protein < 0.10 (< or = 0.50) mg/dL Total Protein 7.7 (6.5-8.0) g/dL Albumin 4.6 (3.5-5.0) g/dL Beta HCG, Quant < 2 mIU/mL Urine Color Dark Yellow Urine Appearance Clear Urine pH >= 9.0 (5.0-9.0) Ur Specific [place] >= 1.030 H (1.005-1.025) Urine Protein 100 (2+) H (Neg-Trace) mg/dL Urine Glucose (UA) Negative (Negative) mg/dL Urine Ketones 80 (Negative) mg/dL Urine Blood Negative (Negative) Urine Nitrite Negative (Negative) Ur Leukocyte Esterase Trace H (Negative) Urine RBC 0-2 (0-2) /HPF Urine WBC 0-5 (0-5) /HPF Ur Squamous Epith Cells 6-10 (0-2) /HPF Urine Bacteria Trace (None Seen) Hyaline Casts 0-2 (0-2) /LPF COVID-19 (SUKHJINDER) Negative (Negative) COVID-19 Clin Com See Note Influenza Type A (BAILEE) Negative (Negative) Influenza Type B (BAILEE) Negative (Negative) Influenza A & B Note See Note Discharge Plan Discharge Clinical Impression: Abdominal pain, vomiting, and diarrhea Patient Disposition: Home, Self-Care Additional Instructions: Please rest and take it easy tonight. Eat simple foods like over cooked rice or dry toast. It is possible episodes like this can be associated with marijuana use. Please consider whether that might be likely in your case. Please follow-up with your regular doctor. Return to the emergency room if worse. Prescriptions: No Action ondansetron 4 mg tablet,disintegrating 4 mg PO TID PRN (Reason: nausea and vomiting) Qty: 10 0RF escitalopram oxalate 10 mg tablet 0 mg PO hydroxyzine pamoate 25 mg capsule 25 - 50 mg PO BEDTIME norgestrel-ethinyl estradiol 0.3-30 mg-mcg tablet 1 tab PO DAILY Qty: 82 4RF Referrals: Sri Combs NP [Primary Care Provider] - Stand Alone Forms: Work/School Release Interventions: ED Discharge Assessment Last Done: 05/07/23 22:36 Discharge Date/Time: 05/07/23 22:38
[2023-05-07] MEDS: Ondansetron ODT 4 MG TAB.RAPDIS TRANSLINGU (14:29)
[2023-05-07 15:25] LABS: MANUAL DIFF FLAG NO
[2023-05-07 15:27] LABS: Basophils Percent Auto 0.3 % (0-2); Eosinophils Percent Auto 0.1 % (0-4); Hemoglobin 14.5 g/dl (12.0-16.0); Imm Gran Abs Auto 0.03 X10*3/uL (0.00-0.03); Imm Gran Pct Auto 0.3 % (0.0-0.4); Lymphocytes Absolute Auto 1.1 X10*3/uL (1.2-4.9); Lymphocytes Percent Auto 10.4 % (20-40); Mean Corpuscular HGB Conc 34.5 g/dl (31.0-35.0); Mean Corpuscular Hemoglobin 32.3 pg (27.0-33.0); Mean Corpuscular Volume 93.5 fL (80.0-98.0); Mean Platelet Volume 11.9 fL (9.4-12.3); Monocytes Absolute Auto 0.4 X10*3/uL (0.1-1.2); Monocytes Percent Auto 3.5 % (2-11); Neutrophils Absolute Auto 9.3 x10*3/uL (2.0-8.3); Neutrophils Percent Auto 85.4 % (45-73); Platelet Count 193 X10*3/uL (160-400); Red Blood Count 4.49 X10*6/uL (4.20-5.50); Red Cell Distribution Width 12.9 % (11.0-16.0); White Blood Count 10.9 X10*3/uL (4.8-10.8)
[2023-05-07 15:40] LABS: COVID-19 Test Negative (Negative); IDNOW Serial# 08D9AD1C
[2023-05-07 15:43] LABS: IDNOW Serial# BCCEAD1C; Influenza A Negative (Negative); Influenza B2 Negative (Negative)
[2023-05-07 15:49] LABS: Alanine Aminotransferase 11 U/L (0-31); Albumin Level 4.6 g/dL (3.5-5.0); Alkaline Phosphatase 44 U/L (39-117); Anion Gap 16 (12-20); Aspartate Amino Transferase 16 U/L (5-31); Bilirubin Total 0.7 mg/dL (0.0-1.0); Blood Urea Nitrogen 8 mg/dL (9-16); Calcium 9.7 mg/dL (8.4-10.2); Carbon Dioxide 23 mmol/L (22-29); Chloride 107 mmol/L (96-108); Creatinine Clr Calc Pharmacy 129.3; Estimated Glomerular Filt Rate > 60; Glucose Random 123 mg/dL (60-115); Potassium 3.7 mmol/L (3.3-5.1); Sodium 142 mmol/L (135-145); Total Protein 7.7 g/dL (6.5-8.0)
[2023-05-07 15:50] LABS: HCG Quantitative < 2 mIU/mL
[2023-05-07] MEDS: 0.9 % Sodium Chloride 1,000 ML 999 ML IV (19:23)
[2023-05-07] MEDS: Ketorolac Tromethamine 15 MG/ML VIAL IVPUSH (19:27)
[2023-05-07] MEDS: droPERidol 5 MG/2 ML VIAL 1.25 MG IVPUSH (19:27)
[2023-05-07 19:49] VITALS: BP 127/59; PULSE 70; RESP 20; TEMP 37.2; O2SAT 100
--- NOTE | 2023-05-07 19:52 | PC.NURSE ---
Pt ca&ox4, no signs of distress. Pt reports 10 LLQ Abdm pain with n/v/d onset this morning. Pt denies pain with urination. IV placed. Medications given per jul. Pt requested and given a warm blanket. Plan of care ongoing.
[2023-05-07 20:07] LABS: C Reactive Protein < 0.10 mg/dL (< or = 0.50)
[2023-05-07 21:26] LABS: Appearance Urine Clear; Color Urine Dark Yellow; Glucose Urine UA Negative (Negative); Leukocyte Esterase Urine Trace (Negative); Nitrite Urine Negative (Negative); PH >= 9.0 (5.0-9.0); Specific Gravity - Urine >= 1.030 (1.005-1.025); UMIC TRIGGER UACC YES; Urine Blood Negative (Negative); Urine Ketones 80 mg/dL (Negative); Urine Protein 100 (2+) mg/dL (Neg-Trace)
[2023-05-07] MEDS: Magnesium Hydrox/Alum Hydrox 30 ML ORAL.SUSP 60 ML PO (21:28)
--- NOTE | 2023-05-07 21:32 | PC.NURSE ---
Pt medicated per jul. Plan of care ongoing.
[2023-05-07 21:33] LABS: Bacteria Urine Trace (None Seen); Hyaline Casts Urine 0-2 /LPF (0-2); RBC Urine 0-2 /HPF (0-2); WBC Urine 0-5 /HPF (0-5)
== END 2023-05-07 22:38 | disposition home or self-care (01) ==
PROVIDERS: Registered Nurse Emergency; Emergency Provider Emergency Medicine; PCP Hospitalist
DX: R10.11 Right upper quadrant pain (principal); R11.2 Nausea with vomiting, unspecified; R19.7 Diarrhea, unspecified; Z11.52 Encounter for screening for COVID-19
CPT/HCPCS: 76705; 80053; 81001; 84702; 85025; 86140; 87502; 87635; 96361; 96374; 96375; 99285; J1790; J1885

== ENCOUNTER 2023-10-05 10:34 | Outpatient (REF) | payer OTHER, SELFPAY ==
[2023-10-06 11:19] LABS: Bacterial Vaginosis PCR POSITIVE (Negative); Candida Group PCR NOT DETECTED (Not Detect); Candida glab krusei PCR NOT DETECTED (Not Detect); Trichomonas vaginalis PCR NOT DETECTED (Not Detect)
== END 2023-10-05 10:35 | disposition home or self-care (01) ==
LOC: HO.LAB 10:34
PROVIDERS: PCP Hospitalist; Visit Provider Advanced Practice Midwife
DX: Z01.419 Encounter for gynecological examination (general) (routine) without abnormal findings (principal); Z20.2 Contact with and (suspected) exposure to infections with a predominantly sexual mode of transmission
CPT/HCPCS: 0352U

== ENCOUNTER 2023-10-05 10:34 | Outpatient (AMB) | payer OTHER, SELFPAY ==
--- NOTE | 2023-10-05 10:43 | MHC.OFFVIS ---
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 Doing well with no concerns. Stopped OCPs for a while, recently restarted. She tries to eat healthy and stays active with exercise. Currently is not sexually active. She denies vaginal itching and irritation. STI screening offered; she accepts. She denies any contraindications to control such as: migraines with aura, history of DVT or pulmonary emboli, high blood pressure, liver disease, thrombolic disorders, Lupus, +RASHARD, breast cancer, or smoking. Family history of breast cancer. Last pap smear 2022, negative. [facility] Medical History Sacrococcygeal pilonidal cyst History of abnormal cervical Pap smear Genital herpes Obesity (BMI 30.0-34.9) ADHD Family History Paternal Grandmother Lung cancer History of breast cancer Paternal Grandfather Liver cancer Prostate cancer Other Substance use disorder Social History Housing: House Alcohol intake: current Alcohol intake frequency: holidays/special occasions only Patient Tobacco Use Status: Never used Tobacco e-Cigarette/Vaping Use: Never Used Second Hand Smoke Exposure: No Substance Use Type: Marijuana service: No Current occupational status: employed Current occupational exposures/hazards: No Sexual orientation: Straight/Heterosexual Gender identity: Female Cognitive needs: No Hearing needs: No Vision needs: Yes Female Reproductive History Menstrual Age of Menarche: 10 Duration of menses: 3-5 days Date of last menstrual period: 09/08/23 Total pregnancies: 0 Date of last pap smear: 08/18/22 (negative) Review of Systems Const All systems reviewed & are unremarkable except as noted in HPI and below Reports as per HPI Eyes Reports no additional complaints ENT Reports no additional complaints Card Reports no additional complaints Resp Reports no additional complaints GI Reports as per HPI and Reports no additional complaints Reports as per HPI Musc Reports no additional complaints Skin/Breast Reports as per HPI Neuro Reports no additional complaints Psych Reports no additional complaints Endo Reports no additional complaints Johnathan/Lymph Reports no additional complaints Aller/Immun Reports no additional complaints Physical Exam Vital Signs: Last Vital Signs BP 102/62 10/05/23 10:49 BMI result Body Mass Index 27.2 Const General: cooperative, healthy appearing, no acute distress, well developed and alert Orientation/consciousness: patient oriented x3 HEENT Head: Yes normal to inspection Eyes General: appearance normal, both eyes and all related structures Neck Neck: Yes normal visual inspection Thyroid: Thyroid normal Chest Chest palpation & inspection: normal inspection of the chest and other (no puckering, dimpling, peau de orange, retraction, discharge, masses) Breast/axilla inspection: normal inspection of the breasts Breast/axilla palpation: normal palpation of the breasts Resp Effort & Inspection: normal respiratory effort GI Inspection: Yes normal to inspection Palpation (GI): Soft to palpation Rectal Exam - Female: deferred General: Yes bladder normal to palpation External Female Exam: normal external appearance and normal appearance of the urethra Speculum Exam - Vagina: normal appearance of the vagina, normal palpation and normal vaginal discharge Speculum Exam - Cervix: normal appearance of the cervix and normal palpation Bimanual exam- vagina & uterus: normal bimanual exam, normal palpation, uterine size normal, bladder normal to palpation, normal palpation and non-tender Bimanual Exam- Adnexa, other: no masses Skin General skin exam: no rashes or lesions noted Rashes: no rashes Neuro General: patient oriented x3 Cognition (Neuro): normal cognition Extrem General: Yes normal to inspection Psych Attitude: cooperative Thought process: Normal thought process present Assessment & Plan Assessment & Plan (1) Encounter for well woman exam with routine gynecological exam: Code(s): Z01.419 - Encounter for gynecological examination (general) (routine) without abnormal findings Category: Medical Plan: Discussed: Current recommendations for pap smears per ASCCP guidelines. Breast awareness and periodic breast exams. Maintain a healthy lifestyle including a well balanced diet and routine exercise. Use condoms for STI and prevention. control hormone use warnings: go to ER if and loss of vision, blindness, severe headache, chest pain or difficulty breathing, severe abdominal pain, or any pain or swelling in an extremity. Patient verbalizes understanding and agrees to the plan of care. She was given opportunity to ask questions and all questions were answered to the best of my ability. RTO in one year for annual 911 dispatcher examination. This note is constructed using voice recognition software. While every effort has been made to ensure accuracy, radial drill press set up operator errors may have been included. Orders: Orders HIV Ab/Ag Today Z20.2 - Contact with and (suspected) exposure to infections with a predominantly sexual mode of transmission Hepatitis C Antibody Reflex Today Z20.2 - Contact with and (suspected) exposure to infections with a predominantly sexual mode of transmission Hepatitis B Core Antibody Today Z20.2 - Contact with and (suspected) exposure to infections with a predominantly sexual mode of transmission Syphilis Screen Today Z20.2 - Contact with and (suspected) exposure to infections with a predominantly sexual mode of transmission CT NG by PCR Today Z01.419 - Encounter for gynecological examination (general) (routine) without abnormal findings Bacterial Vaginosis Panel Today Z01.419 - Encounter for gynecological examination (general) (routine) without abnormal findings Coding Level of Care Code Est Pt Prev Care 18-39y(98821) Diagnoses Encounter for well woman exam with routine gynecological exam Z01.419
[2023-10-05 10:49] VITALS: BP 102/62; BMI 27.2
== END 2023-10-05 11:26 | disposition home or self-care (01) ==
PROVIDERS: PCP Hospitalist; Visit Provider Advanced Practice Midwife
DX: Z01.419 Encounter for gynecological examination (general) (routine) without abnormal findings (principal)
CPT/HCPCS: 99395

== ENCOUNTER 2023-10-05 11:36 | Outpatient (REF) | payer OTHER, SELFPAY ==
[2023-10-05 14:28] LABS: CT PCR NOT DETECTED (Not Detect.); NG PCR NOT DETECTED (Not Detect.)
[2023-10-06 09:06] LABS: HBc Num1 0.13 S/CO (0.00-0.79); HIV AB/AG Nonreactive (Nonreactive); HIV Num 1 0.05 S/CO (0.00-0.99); Hepatitis B Core Antibody Nonreactive (Nonreactive); ~HepC Num1 0.13 S/CO (0.00-0.79); ~Hepatitis C Antibody Nonreactive (Nonreactive)
[2023-10-06 09:11] LABS: Syphilis Screen Nonreactive (Nonreactive)
== END 2023-10-05 11:37 | disposition home or self-care (01) ==
LOC: HO.LAB 11:36
PROVIDERS: Visit Provider Advanced Practice Midwife
DX: Z01.419 Encounter for gynecological examination (general) (routine) without abnormal findings (principal); Z11.4 Encounter for screening for human immunodeficiency virus [HIV]; Z20.2 Contact with and (suspected) exposure to infections with a predominantly sexual mode of transmission
CPT/HCPCS: 0353U; 86704; 86780; 86803; 87389

== ENCOUNTER 2024-01-20 12:01 | Outpatient (REF) | payer OTHER, SELFPAY ==
[2024-01-20 12:19] LABS: MANUAL DIFF FLAG NO
[2024-01-20 12:30] LABS: Basophils Percent Auto 0.6 % (0-2); Eosinophils Absolute Auto 0.2 X10*3/uL (0.0-0.4); Eosinophils Percent Auto 3.7 % (0-4); Hematocrit 39.1 % (37.0-47.0); Hemoglobin 13.7 g/dl (12.0-16.0); Imm Gran Abs Auto 0.01 X10*3/uL (0.00-0.03); Imm Gran Pct Auto 0.2 % (0.0-0.4); Lymphocytes Absolute Auto 1.8 X10*3/uL (1.2-4.9); Lymphocytes Percent Auto 27.9 % (20-40); Mean Corpuscular Volume 94.2 fL (80.0-98.0); Mean Platelet Volume 11.5 fL (9.4-12.3); Monocytes Absolute Auto 0.4 X10*3/uL (0.1-1.2); Monocytes Percent Auto 6.7 % (2-11); Neutrophils Absolute Auto 3.9 x10*3/uL (2.0-8.3); Neutrophils Percent Auto 60.9 % (45-73); Platelet Count 178 X10*3/uL (160-400); Red Blood Count 4.15 X10*6/uL (4.20-5.50); White Blood Count 6.4 X10*3/uL (4.8-10.8)
[2024-01-20 14:15] LABS: Alanine Aminotransferase 16 U/L (0-31); Albumin Level 4.4 g/dL (3.5-5.0); Alkaline Phosphatase 38 U/L (39-117); Anion Gap 11 (12-20); Aspartate Amino Transferase 17 U/L (5-31); Bilirubin Direct 0.2 mg/dL (0.0-0.5); Bilirubin Total 0.6 mg/dL (0.0-1.0); Blood Urea Nitrogen 13 mg/dL (9-16); Calcium 9.7 mg/dL (8.4-10.2); Carbon Dioxide 27 mmol/L (22-29); Chloride 105 mmol/L (96-108); Estimated Glomerular Filt Rate > 60; Glucose Random 68 mg/dL (60-115); Potassium 4.3 mmol/L (3.3-5.1); Sodium 139 mmol/L (135-145); Total Protein 7.4 g/dL (6.5-8.0)
[2024-01-21 04:18] LABS: HBS Num1 133.65 mIU/mL (0-7.99); HBc Num1 0.13 S/CO (0.00-0.79); HBsAGNum1 0.25 S/CO (0.00-0.99); Hepatitis B Core Antibody Nonreactive (Nonreactive); Hepatitis B Surface Antigen Negative (Negative); ~Hepatitis B Surface Antibody REACTIVE (Nonreactive); ~Hepatitis C Antibody Nonreactive (Nonreactive)
[2024-01-23 06:13] LABS: TS Negative Control Passed; TS Panel A 0; TS Panel B 0; TS Positive Control Passed; TSpotTB Negative (Negative)
== END 2024-01-20 12:02 | disposition home or self-care (01) ==
LOC: HO.LAB 12:01
PROVIDERS: Visit Provider Dermatology
DX: L73.2 Hidradenitis suppurativa (principal)
CPT/HCPCS: 36415; 80048; 80076; 85025; 86481; 86704; 86706; 86803; 87340

== ENCOUNTER 2024-02-07 00:21 | Emergency (ER) | payer OTHER, SELFPAY ==
[2024-02-07 00:41] VITALS: BP 121/65; PULSE 100; RESP 18; TEMP 37; O2SAT 98; BMI 27.6
[2024-02-07] MEDS: Lidocaine/Racepinep/Tetracaine 3 ML GEL.PF.APP TOPICAL (02:56)
--- NOTE | 2024-02-07 02:56 | ED.SKABFB ---
HPI - Skin/Abscess/Foreign Bdy General Chief complaint: Skin/Abscess/Foreign Body Stated complaint: cyst on private area Time Seen by Provider: 02/07/24 02:41 Source: patient and old records reviewed Mode of arrival: ambulatory Limitations: no limitations History of Present Illness ED Provider: BG VILLALBA narrative: 23 yo female with PMH of hidradenitis suppuritiva, abscess, pilonidal here with c/o 3 days of R buttock abscess x 2 that have worsened - no fevers, vomiting hurts to sit and move. She has tried warm compresses. No expression of purulence at home complaint: abscess/boil Onset (ago): day(s) (3) Tetanus up to date: yes Location: buttocks Severity: moderate Quality: aching Pain Consistency: intermittent Relieving factors: immobilization Exacerbating factors: palpation and movement Context: other (hx of HS) Associated symptoms: denies other symptoms Treatments prior to arrival: other (warm compress) Related Data Home Medications ?Medication ?Instructions ?Recorded ?Confirmed spironolactone 25 mg tablet 25 mg PO BID 10/05/23 Previous Rx's ?Medication ?Instructions ?Recorded metronidazole 500 mg tablet 500 mg PO BID 7 days #14 tabs 10/18/23 norgestrel 0.3 mg-ethinyl 1 tab PO DAILY #82 tabs 10/26/23 estradiol 30 mcg tablet cephalexin 500 mg capsule 500 mg PO QID 7 days #28 caps 02/07/24 doxycycline hyclate 100 mg capsule 100 mg PO BID 7 days #14 caps 02/07/24 fluconazole 150 mg tablet 150 mg PO Q3D 2 doses #2 tabs 02/07/24 ondansetron 4 mg disintegrating 4 mg PO Q8H PRN nausea and 02/07/24 tablet vomiting #20 tabs Allergies Allergy/AdvReac Type Severity Reaction Status Date / Time amoxicillin [AMOXICILLIN] Allergy Intermediate UTICARIA Verified 02/07/24 00:44 Review of Systems Review of Systems: Constitutional : No Fever, No Chills ENT/Mouth : No sore throat, No Rhinorrhea Eyes: No Eye Pain, No Swelling, No Redness Cardiovascular : No Chest Pain, No SOB Respiratory : No Cough, No Sputum Gastrointestinal : No Nausea, No Vomiting, No Diarrhea, No abdominal Pain Genitourinary : No Dysuria, No Hematuria Musculoskeletal : No joint pain, No Myalgias, No Joint Swelling Skin : pos Skin Lesions, positive skin rash Neuro : No Weakness, No Numbness, No Headache Psych : No Anxiety, No Depression All other systems reviewed and are negative [facility] Past Medical History Attestation statement: The following information was validated with the patient. Source: old records reviewed Medical History Sacrococcygeal pilonidal cyst History of abnormal cervical Pap smear Genital herpes Obesity (BMI 30.0-34.9) ADHD Family History Family History Paternal Grandmother Lung cancer History of breast cancer Paternal Grandfather Liver cancer Prostate cancer Other Substance use disorder Social History Social History Housing: House Alcohol intake: current Alcohol intake frequency: holidays/special occasions only Patient Tobacco Use Status: Never used Tobacco e-Cigarette/Vaping Use: Never Used Second Hand Smoke Exposure: No Substance Use Type: Marijuana service: No Current occupational status: employed Current occupational exposures/hazards: No Sexual orientation: Straight/Heterosexual Gender identity: Female Cognitive needs: No Hearing needs: No Vision needs: Yes Physical Exam Vital Signs: Vital Signs: Last Vital Signs Temp 98.6 F 02/07/24 00:41 Pulse 100 02/07/24 00:41 Resp 18 02/07/24 00:41 BP 121/65 02/07/24 00:41 Pulse Ox 98 02/07/24 00:41 O2 Del Method Room Air 02/07/24 00:41 BMI result Body Mass Index 27.6 Appearance: Alert. Oriented X3. No acute distress. Eyes: Pupils equal, round and reactive to light. ENT: Pharynx normal. Neck: Normal inspection. Neck supple. CVS: Normal heart rate and rhythm. Pulses normal. Respiratory: No respiratory distress. Breath sounds normal. Abdomen: Soft and nontender. Buttocks: abscess noted with mild surround erythema right buttock 2cm - to a point, inner right buttock 4cm area fluctuant area with erythema I do not feel anything near the anal verge or down to the perineum, multiple old scars and areas consistent with HS Skin: Skin warm and dry. Normal skin color. Normal skin turgor. Extremities: No lower extremity edema. Neuro: Oriented X 3. No motor deficit. No sensory deficit. Medications Administered Discontinued Medications Generic Name Dose Route Start Last Admin Trade Name Lyndon PRN Reason Stop Dose Admin Lidocaine HCl 5 ml 02/07/24 02:23 02/07/24 03:19 Lidocaine Hcl 1 % Mpf 5 Ml Vial SUBCUT 02/07/24 02:24 5 ml ONCE ONE Administration Lidocaine/Epinephrine/Tetracaine 3 ml 02/07/24 02:23 02/07/24 02:56 Lidocaine/Racepinep/Tetracaine 3 Ml Gel.Pf.Kristin TOPICAL 02/07/24 02:24 3 ml ONCE ONE Administration Medical Decision Making Medical Decision Making MDM Narrative: 23 yo female with PMH of hidradenitis suppuritiva, abscess, pilonidal here with c/o 2 separate abscess on R buttock denies systemic symptoms at this time will I+D areas and anticipate oral antibiotics. She will get better exam of abscess once she is more numb to make sure there is no concern for deeper involvement. Differential Diagnosis Differential Diagnoses: The differential diagnosis associated with the presentation includes abscess, cellulitis Admission/Observation Consideration of admission/observation: Escalation of care including admission/observation considered superficial abscess on exam buttock only nothing near anal verge External Record Review External record reviewed: Office record Prescription Management I considered prescription management with: Pain Medication and Antibiotic Procedures Procedure Narrative Procedure Narrative: 2nd abscess R buttock 4cm in size 1% lidocaine 3ccm incised with 11 blade patient requested no packing expressed one clot and about 5cc of purulence, irrigated, no cultures sent off. tolerated well no complications Abscess I/D Site: other (R buttock) Side (if applicable): right Local Anesthetic: lidocaine 1% Amount of anesthesia used (mL): 1 Technique: needle aspiration Amount of fluid expressed (mL): 2 Sent for culture/gram staining?: No Irrigation: Yes Packing used?: none Discharge Plan Discharge Clinical Impression: Abscess Patient Disposition: Home, Self-Care Instructions: Abscess (ED), Sitz Bath (DC), Abscess Incision and Drainage (DC) Additional Instructions: avoid aspirin return for any worsening symptoms or concerns such as increased pain, fevers, no improvement, you will drain and bleed but you should not be bleeding more than a period follow up with your doctors On a cephalosporin?antibiotic, softer bowel movements are to be expected. Call your provider if you move your bowels more than 4 times a day, your bowel movements are almost all liquid, or you get a rash.?? On doxycycline, do not take pills immediately before going to bed and swallow pills with plenty of water. Avoid direct sunlight, iron, antacids, and Pepto Bismol. Call your provider if you develop new ringing in your ears, new problems hearing, dizziness, difficulty swallowing, rash, abdominal discomfort, nausea, or diarrhea.? Prescriptions: New doxycycline hyclate 100 mg capsule 100 mg PO BID 7 Days Qty: 14 0RF fluconazole 150 mg tablet 150 mg PO Q3D Qty: 2 0RF Rx Instructions: may repeat second dose 72 hrs after first dose if symptoms persist cephalexin 500 mg capsule 500 mg PO QID 7 Days Qty: 28 0RF ondansetron 4 mg tablet,disintegrating 4 mg PO Q8H PRN (Reason: nausea and vomiting) Qty: 20 0RF No Action metronidazole 500 mg tablet 500 mg PO BID 7 Days Qty: 14 0RF Rx Instructions: Take with food, Avoid alcohol and vinegar products norgestrel-ethinyl estradiol 0.3-30 mg-mcg tablet 1 tab PO DAILY Qty: 82 4RF spironolactone 25 mg tablet 25 mg PO BID Stand Alone Forms: Work/School Release Print Language: Welsh
[2024-02-07] MEDS: Lidocaine HCl 1 % MPF 5 ML VIAL SUBCUT (03:19)
[2024-02-07] MEDS: Doxycycline Monohydrate 100 MG CAPSULE PO (03:51)
[2024-02-07] MEDS: cephALEXin 500 MG CAPSULE PO (03:51)
[2024-02-07 04:38] VITALS: BP 121/65; PULSE 100; RESP 18; TEMP 37; O2SAT 98
== END 2024-02-07 04:10 | disposition home or self-care (01) ==
PROVIDERS: Emergency Provider Emergency Medicine; PCP Hospitalist
DX: L02.31 Cutaneous abscess of buttock (principal)
CPT/HCPCS: 10060; 99284

== ENCOUNTER → 2024-03-01 13:39 | Outpatient (BNVA) | payer OTHER, SELFPAY | PROVIDERS: PCP Hospitalist; Visit Provider Surgery ==

== ENCOUNTER 2024-03-31 05:10 | Emergency (ER) | payer OTHER, SELFPAY ==
[2024-03-31 05:13] VITALS: BP 170/130; PULSE 92; O2SAT 99
[2024-03-31 05:30] VITALS: BP 104/48; PULSE 85; RESP 18; TEMP 36.4; O2SAT 99; BMI 28.0
--- NOTE | 2024-03-31 05:30 | ECG_ITS ---
Test Reason : DIZZINES Blood Pressure : / mmHG Vent. Rate : 081 BPM Atrial Rate : 081 BPM P-R Int : 162 ms QRS Dur : 088 ms QT Int : 374 ms P-R-T Axes : 070 049 048 degrees QTc Int : 434 ms Normal sinus rhythm Possible Acute pericarditis v/s Early Repolarization Abnormal ECG No previous ECGs available Referred By: Generic ED Physician Electronically Signed By:PRASANNA ADAN MD
[2024-03-31 05:59] LABS: MANUAL DIFF FLAG NO
[2024-03-31 06:00] LABS: Basophils Percent Auto 0.2 % (0-2); Eosinophils Percent Auto 0.1 % (0-4); Hemoglobin 12.6 g/dl (12.0-16.0); Imm Gran Abs Auto 0.04 X10*3/uL (0.00-0.03); Imm Gran Pct Auto 0.4 % (0.0-0.4); Lymphocytes Percent Auto 10.2 % (20-40); Mean Corpuscular Hemoglobin 32.7 pg (27.0-33.0); Mean Corpuscular Volume 90.9 fL (80.0-98.0); Mean Platelet Volume 12.1 fL (9.4-12.3); Monocytes Absolute Auto 0.3 X10*3/uL (0.1-1.2); Monocytes Percent Auto 3.1 % (2-11); Neutrophils Absolute Auto 8.2 x10*3/uL (2.0-8.3); Platelet Count 152 X10*3/uL (160-400); Red Blood Count 3.85 X10*6/uL (4.20-5.50); Red Cell Distribution Width 12.2 % (11.0-16.0); White Blood Count 9.5 X10*3/uL (4.8-10.8)
[2024-03-31 06:12] LABS: Ethanol 128 mg/dL
--- NOTE | 2024-03-31 06:12 | PC.NURSE ---
Pt BIBA from home for evaluation of nausea, vomiting, dizziness, and abdominal pain pain-onset of symptoms around 3am after cocaine, marijuana and ETOH use. EMS gave 4mg of PO Zofran in route to ED. Pt denies SI/HI. Patient placed on media monitor, EKG completed, labs drawn and sent to lab. Patient changed over into a hospital attire with security at bedside, belongings secured and locked in [place] port, locker 4.
[2024-03-31 06:14] LABS: Alanine Aminotransferase 18 U/L (0-31); Albumin Level 4.4 g/dL (3.5-5.0); Alkaline Phosphatase 38 U/L (39-117); Anion Gap 16 (12-20); Aspartate Amino Transferase 26 U/L (5-31); Bilirubin Total 0.4 mg/dL (0.0-1.0); Blood Urea Nitrogen 9 mg/dL (9-16); Calcium 9.1 mg/dL (8.4-10.2); Carbon Dioxide 19 mmol/L (22-29); Chloride 102 mmol/L (96-108); Creatinine Clr Calc Pharmacy 117.8; Estimated Glomerular Filt Rate > 60; Glucose Random 101 mg/dL (60-115); Potassium 3.2 mmol/L (3.3-5.1); Sodium 134 mmol/L (135-145); Total Protein 7.3 g/dL (6.5-8.0)
[2024-03-31 06:21] LABS: Troponin-I High Sensitivity < 2.7 ng/L (<3.5-17.0)
--- NOTE | 2024-03-31 06:32 | ED.GENADULT ---
HPI - General Adult General Chief complaint: General Medical Stated complaint: drug use dizzy and nausea Time Seen by Provider: 03/31/24 06:27 Source: patient, EMS, RN notes reviewed and old records reviewed Mode of arrival: EMS Limitations: no limitations History of Present Illness ED Provider: Sy Culp PA-C HPI narrative: 23 yo female presents to the ER via EMS for evaluation of dizziness, nausea, vomiting and abdominal pain after using cocaine, marijuana an drinking alcohol. symptoms started 3 hours ago. she states she drank too much alcohol too quickly, consuming 3 drinks in less than 1 hour. she then developed abdominal pain, nausea, vomiting, dizziness, feeling hot and flushed. She vomited several times. she endorses smoking some marijuana and doing a small amount of cocaine. She denies any fentanyl or opiate use. She denies daily drinking or daily substance use. She was given Zofran. She is feeling much better. No longer nauseous or having belly pain. Her dizziness is improved. MD complaint: vomiting, dizziness after drug and alcohol use Onset (ago): hour(s) Pain Consistency: now resolved Relieving factors: medication Associated symptoms: denies other symptoms Treatments prior to arrival: other ( Zofran) Related Data Home Medications ?Medication ?Instructions ?Recorded ?Confirmed spironolactone 25 mg tablet 25 mg PO BID 10/05/23 Previous Rx's ?Medication ?Instructions ?Recorded metronidazole 500 mg tablet 500 mg PO BID 7 days #14 tabs 10/18/23 norgestrel 0.3 mg-ethinyl 1 tab PO DAILY #82 tabs 10/26/23 estradiol 30 mcg tablet cephalexin 500 mg capsule 500 mg PO QID 7 days #28 caps 02/07/24 doxycycline hyclate 100 mg capsule 100 mg PO BID 7 days #14 caps 02/07/24 fluconazole 150 mg tablet 150 mg PO Q3D 2 doses #2 tabs 02/07/24 ondansetron 4 mg disintegrating 4 mg PO Q8H PRN nausea and 02/07/24 tablet vomiting #20 tabs fluconazole 150 mg tablet 150 mg PO ONCE 1 day #1 tab 03/24/24 Allergies Allergy/AdvReac Type Severity Reaction Status Date / Time amoxicillin [AMOXICILLIN] Allergy Intermediate UTICARIA Verified 03/31/24 05:42 Review of Systems Review of Systems: Yes all other systems are reviewed and are negative PMFSH Past Medical History Medical History Sacrococcygeal pilonidal cyst History of abnormal cervical Pap smear Genital herpes Obesity (BMI 30.0-34.9) ADHD Family History Family History Paternal Grandmother Lung cancer History of breast cancer Paternal Grandfather Liver cancer Prostate cancer Other Substance use disorder Social History Social History Housing: House Alcohol intake: current Alcohol intake frequency: a few times a month Alcohol type: hard liquor Patient Tobacco Use Status: Never used Tobacco Smoked in Last 30 Days: No e-Cigarette/Vaping Use: Never Used Second Hand Smoke Exposure: No Substance Use Type: Crack/Cocaine and Marijuana Substance Use Frequency: Occasionally Advance Directives: No Advance Directives Information Provided: Yes Patient : No service: No Current occupational status: employed Current occupational exposures/hazards: No Sexual orientation: Straight/Heterosexual Gender identity: Female Cognitive needs: No Hearing needs: No Vision needs: Yes Physical Exam ED Vital Signs: Vital Signs - 24 hr 03/31/24 05:30 03/31/24 06:39 Temperature 97.5 F 97.7 F Pulse Rate 85 75 Respiratory Rate 18 16 Blood Pressure 104/48 L 106/68 Pulse Oximetry 99 99 Oxygen Delivery Method Room Air Room Air BMI result Body Mass Index 28.0 Appearance: Alert. Oriented X3. No acute distress. Head: normocephalic, atraumatic. Eyes: Pupils equal, round and reactive to light. ENT: Pharynx normal. No tonsillar swelling or exudate. Neck: Normal inspection. Neck supple. CVS: Normal heart rate and rhythm. Pulses normal. Respiratory: No respiratory distress. Breath sounds normal. Abdomen: Soft and nontender. +BS x4 Skin: Skin warm and dry. Normal skin color. Normal skin turgor. No rashes. Extremities: No lower extremity edema. No joint swelling. Neuro/psych: Oriented X 3. No motor deficit. No sensory deficit. CN II-XII intact. Normal speech and cognition. Medications Administered Discontinued Medications Generic Name Dose Route Start Last Admin Trade Name Freq PRN Reason Stop Dose Admin Potassium Chloride 40 meq 03/31/24 07:22 03/31/24 07:39 Potassium Chloride Er 20 Meq Tab.Er.Prt PO 03/31/24 07:23 40 meq ONCE ONE Administration Medical Decision Making Medical Decision Making [facility] Narrative: 23-year-old female presents to the ER from home via EMS for evaluation of nausea, vomiting, abdominal pain, dizziness after drinking excessive amounts of alcohol, using cocaine and marijuana. She vomited several times. She was given Zofran in route and has not vomited since. She is feeling much better. Her vital signs are stable. Her lab workup shows mild hypokalemia this was repleted orally. She has no CHAPO. Her alcohol level is elevated to 128. U tox is positive for cocaine and marijuana. No opiates detected. Patient is feeling much better and would like to be discharged home. She was counseled on alcohol and polysubstance use. Declined need for detox or Addiction Medicine consult. Stable for discharge home with supportive care Differential Diagnosis Differential Diagnoses: The differential diagnosis associated with the presentation includes acute intoxication of alcohol, polysubstance use, dehydration, electrolyte abnormality, CHAPO time, opiate use, cardiac arrhythmia Lab Data [facility] Lab Attestation statement: I reviewed the patient's lab results. mild anemia, mild thrombocytopenia, mild hypokalemia, mild hyponatremia 03/31/24 05:55 03/31/24 05:55 Labs: Lab Results 03/31/24 03/31/24 Range/Units 05:55 06:57 WBC 9.5 (4.8-10.8) X10*3/uL RBC 3.85 L (4.20-5.50) X10*6/uL Hgb 12.6 (12.0-16.0) g/dl Hct 35.0 L (37.0-47.0) % MCV 90.9 (80.0-98.0) fL MCH 32.7 (27.0-33.0) pg MCHC 36.0 H (31.0-35.0) g/dl RDW 12.2 (11.0-16.0) % Plt Count 152 L (160-400) X10*3/uL MPV 12.1 (9.4-12.3) fL Immature Gran % (Auto) 0.4 (0.0-0.4) % Neut % (Auto) 86.0 H (45-73) % Lymph % (Auto) 10.2 L (20-40) % [place] % (Auto) 3.1 (2-11) % Eos % (Auto) 0.1 (0-4) % Baso % (Auto) 0.2 (0-2) % Lymph # (Auto) 1.0 L (1.2-4.9) X10*3/uL [place] # (Auto) 0.3 (0.1-1.2) X10*3/uL Eos # (Auto) 0.0 (0.0-0.4) X10*3/uL Baso # (Auto) 0.0 (0.0-0.2) X10*3/uL Abs Immat Gran (auto) 0.04 H (0.00-0.03) X10*3/uL Absolute Neuts (auto) 8.2 (2.0-8.3) x10*3/uL Absolute Nucleated RBC 0.000 (0.0-0.012) X10*3/uL Nucleated RBC % (auto) 0.0 (0.0-0.2) /100WBC Sodium 134 L (135-145) mmol/L Potassium 3.2 L D (3.3-5.1) mmol/L Chloride 102 (96-108) mmol/L Carbon Dioxide 19 L (22-29) mmol/L Anion Gap 16 (12-20) BUN 9 (9-16) mg/dL Creatinine 0.80 (0.5-1.4) mg/dL Estim Creat Clear Calc 117.8 Estimated GFR > 60 Random Glucose 101 (60-115) mg/dL Calcium 9.1 D (8.4-10.2) mg/dL Total Bilirubin 0.4 (0.0-1.0) mg/dL AST 26 (5-31) U/L ALT 18 (0-31) U/L Alkaline Phosphatase 38 L (39-117) U/L Troponin I High Sens < 2.7 (<3.5-17.0) ng/L Total Protein 7.3 (6.5-8.0) g/dL Albumin 4.4 (3.5-5.0) g/dL Urine Color Yellow Urine Appearance Clear Urine pH 5.5 (5.0-9.0) Ur Specific [place] 1.015 (1.005-1.025) Urine Protein Negative (Neg-Trace) mg/dL Urine Glucose (UA) Negative (Negative) mg/dL Urine Ketones 40 (Negative) mg/dL Urine Blood Negative (Negative) Urine Nitrite Negative (Negative) Ur Leukocyte Esterase Trace H (Negative) Urine RBC 0-2 (0-2) /HPF Urine WBC 6-10 H (0-5) /HPF Ur Squamous Epith Cells 6-10 (0-2) /HPF Urine Bacteria 1+ (None Seen) Hyaline Casts 0-2 (0-2) /LPF Urine Test NEGATIVE (NEGATIVE) Urine Opiates Screen Not Detected (Not Detect) Ur Buprenorphine Scrn Not Detected (Not Detect) ng/mL Ur Oxycodone Screen Not Detected (Not Detect) ng/mL Urine Methadone Screen Not Detected (Not Detect) ng/mL Urine Fentanyl Screen Not Detected (Not Detect) Ur Barbiturates Screen Not Detected (Not Detect) Ur Phencyclidine Scrn Not Detected (Not Detect) Ur Amphetamines Screen Not Detected (Not Detect) U Benzodiazepines Scrn Not Detected (Not Detect) Urine Cocaine Screen POSITIVE H (Not Detect) U Marijuana (THC) Screen POSITIVE H (Not Detect) Ethyl Alcohol 128 mg/dL Independent Historian Clinical information obtained from an independent historian. History obtained from or confirmed by: EMS Prescription Management I considered prescription management with: Other ( antiemetic) Social Determinants Patient?s care significantly limited by Social Determinants of Health including: Alcoholism and drug addiction in family Critical Care Time Critical Care Time Critical Care Time: No Discharge Plan Discharge Clinical Impression: Cocaine use, Acute hypokalemia Alcohol intoxication Qualifiers: Complication of substance-induced condition: uncomplicated Qualified Code(s): F10.920 - Alcohol use, unspecified with intoxication, uncomplicated Patient Disposition: Home, Self-Care Instructions: Hypokalemia (ED), Cocaine Abuse (ED), Abuse of Alcohol (ED) Additional Instructions: your lab workup today showed a mildly low potassium, likely due to vomiting. you were given potassium supplement in the ER your urine test was negative for infection and your drug screen was positive for cocaine and marijuana, no opiates or fentanyl detected do not drink excessive alcohol do not use illicit drugs rest and drink plenty of fluids today If you develop new or worsening symptoms call 911 or come back to the ER for further evaluation. Prescriptions: No Action metronidazole 500 mg tablet 500 mg PO BID 7 Days Qty: 14 0RF Rx Instructions: Take with food, Avoid alcohol and vinegar products norgestrel-ethinyl estradiol 0.3-30 mg-mcg tablet 1 tab PO DAILY Qty: 82 4RF fluconazole 150 mg tablet 150 mg PO ONCE 1 Days Qty: 1 0RF doxycycline hyclate 100 mg capsule 100 mg PO BID 7 Days Qty: 14 0RF fluconazole 150 mg tablet 150 mg PO Q3D Qty: 2 0RF Rx Instructions: may repeat second dose 72 hrs after first dose if symptoms persist cephalexin 500 mg capsule 500 mg PO QID 7 Days Qty: 28 0RF ondansetron 4 mg tablet,disintegrating 4 mg PO Q8H PRN (Reason: nausea and vomiting) Qty: 20 0RF spironolactone 25 mg tablet 25 mg PO BID Stand Alone Forms: Work/School Release Print Language: Surinamese
[2024-03-31 06:39] VITALS: BP 106/68; PULSE 75; RESP 16; TEMP 36.5; O2SAT 99
--- NOTE | 2024-03-31 06:58 | MHC.EDTECH ---
Patient urine sample collected and sent to lab .
[2024-03-31 07:04] LABS: Appearance Urine Clear; Color Urine Yellow; Glucose Urine UA Negative (Negative); Leukocyte Esterase Urine Trace (Negative); Nitrite Urine Negative (Negative); PH 5.5 (5.0-9.0); Specific Gravity - Urine 1.015 (1.005-1.025); UMIC TRIGGER UACC YES; UPreg QC Valid YES; Urine Blood Negative (Negative); Urine Ketones 40 mg/dL (Negative); Urine Pregnancy NEGATIVE (NEGATIVE); Urine Protein Negative (Neg-Trace)
[2024-03-31 07:09] LABS: Bacteria Urine 1+ (None Seen); Hyaline Casts Urine 0-2 /LPF (0-2); RBC Urine 0-2 /HPF (0-2); UACC Culture Trigger YES
[2024-03-31 07:12] LABS: Amphetamine Screen Urine Not Detected (Not Detect); Barbiturates, Urine Not Detected (Not Detect); Benzodiazepines Screen Urine Not Detected (Not Detect); Buprenorphine Scr Not Detected (Not Detect); Cannabinoid Screen Urine POSITIVE (Not Detect); Cocaine Screen Urine POSITIVE (Not Detect); Fentanyl, urine Not Detected (Not Detect); Methadone Screen, Urine Not Detected (Not Detect); Opiate Screen Urine Not Detected (Not Detect); Oxycodone Screen Urine Not Detected (Not Detect); Phencyclidine Screen Urine Not Detected (Not Detect)
[2024-03-31] MEDS: Potassium Chloride ER 20 MEQ TAB.ER.PRT 40 MEQ PO (07:39)
--- NOTE | 2024-03-31 07:47 | PC.NURSE ---
pt resting but easily arousble, skin appropriate foe ethnicity, respirations even and unlabored, pt denies abd pain and nausea at this time
[2024-03-31 08:12] VITALS: BP 106/68; PULSE 75; RESP 16; TEMP 36.5; O2SAT 99
== END 2024-03-31 08:13 | disposition home or self-care (01) ==
PROVIDERS: Emergency Provider Emergency Medicine
DX: F14.90 Cocaine use, unspecified, uncomplicated (principal); F10.920 Alcohol use, unspecified with intoxication, uncomplicated; Y90.6 Blood alcohol level of 120-199 mg/100 ml; E87.6 Hypokalemia; F12.90 Cannabis use, unspecified, uncomplicated; Z79.899 Other long term (current) drug therapy
CPT/HCPCS: 36415; 80053; 80307; 81001; 81025; 84484; 85025; 87086; 93005; 99283; 99284

== ENCOUNTER → 2024-03-31 05:30 | Outpatient (BNV) | payer OTHER, SELFPAY | PROVIDERS: Emergency Provider Emergency Medicine; Visit Provider Internal Medicine Cardiovascular Disease | DX: R94.31 Abnormal electrocardiogram [ECG] [EKG] (principal) | CPT/HCPCS: 93010 ==

== ENCOUNTER 2024-04-15 08:34 | Emergency (ER) | payer OTHER, SELFPAY ==
--- NOTE | 2024-04-15 08:40 | ED_ITS ---
HPI - Nausea/Vomiting/Diarrhea General Chief complaint: Nausea/Vomiting/Diarrhea Stated complaint: NAUSEA VOMITING Time Seen by Provider: 04/15/24 08:39 History of Present Illness HPI Narrative: 23-year-old female with a history of ADHD, cocaine use disorder, heroin use disorder who presents emergency department for evaluation of nausea, vomiting or abdominal pain which began last night and continued into the morning. Patient was had multiple episodes of vomiting and dry heaving. She was also complaining of abdominal pain and points to her epigastric area when asked to localize the pain. Patient was been seen multiple times in the emergency department for these symptoms. Last visit to [facility] was on 03/31/2024 for abdominal pain nausea, vomiting after drinking excessive amount of alcohol, using cocaine and smoking marijuana. She was diagnosed with cocaine use disorder and hypokalemia. Related Data Home Medications ?Medication ?Instructions ?Recorded ?Confirmed spironolactone 25 mg tablet 25 mg PO BID 10/05/23 Previous Rx's ?Medication ?Instructions ?Recorded metronidazole 500 mg tablet 500 mg PO BID 7 days #14 tabs 10/18/23 norgestrel 0.3 mg-ethinyl 1 tab PO DAILY #82 tabs 10/26/23 estradiol 30 mcg tablet cephalexin 500 mg capsule 500 mg PO QID 7 days #28 caps 02/07/24 doxycycline hyclate 100 mg capsule 100 mg PO BID 7 days #14 caps 02/07/24 fluconazole 150 mg tablet 150 mg PO Q3D 2 doses #2 tabs 02/07/24 ondansetron 4 mg disintegrating 4 mg PO Q8H PRN nausea and 02/07/24 tablet vomiting #20 tabs fluconazole 150 mg tablet 150 mg PO ONCE 1 day #1 tab 03/24/24 ondansetron 4 mg disintegrating 4 mg PO Q6-8H PRN nausea and 04/15/24 tablet vomiting #20 tabs Allergies Allergy/AdvReac Type Severity Reaction Status Date / Time amoxicillin [AMOXICILLIN] Allergy Intermediate UTICARIA Verified 04/15/24 08:57 Review of Systems 2 Review of Systems: Yes all other systems are reviewed and are negative [facility] Past Medical History [facility] Narrative: Social history: The patient does smoke cigarettes. She does drink alcohol. She uses marijuana and cocaine on a regular basis. Medical History Sacrococcygeal pilonidal cyst History of abnormal cervical Pap smear Genital herpes Obesity (BMI 30.0-34.9) ADHD Family History Family History Paternal Grandmother Lung cancer History of breast cancer Paternal Grandfather Liver cancer Prostate cancer Other Substance use disorder Social History Social History Housing: House Alcohol intake: current Alcohol intake frequency: a few times a month Alcohol type: hard liquor Patient Tobacco Use Status: Never used Tobacco Smoked in Last 30 Days: Yes e-Cigarette/Vaping Use: Never Used Second Hand Smoke Exposure: No Use of substances other than those prescribed or required for medical reasons: Yes Substance Use Type: Marijuana Substance Use Frequency: Chronic Longstanding Last Used Substance: Hours (ago) Any prior treatment program specific to substance use: No Advance Directives: No Advance Directives Information Provided: No Do you have a plan to hurt others: No Plan service: No Current occupational status: employed Current occupational exposures/hazards: No Sexual orientation: Straight/Heterosexual Gender identity: Female Cognitive needs: No Hearing needs: No Vision needs: Yes Physical Exam 2 Vital Signs: Vital Signs: Last Vital Signs Temp 96.9 F 04/15/24 11:24 Pulse 66 04/15/24 11:24 Resp 18 04/15/24 11:24 BP 127/83 04/15/24 11:24 Pulse Ox 97 04/15/24 11:24 O2 Del Method Room Air 04/15/24 11:24 BMI result Body Mass Index 28.1 Exam: General: Patient is actively dry heaving in the emergency department and appears to be in distress secondary to this Head: Normocephalic, atraumatic EENT: PERRL, Lids normal, sclera normal, conjunctiva normal, nose normal , ears normal, throat without erythema or exudates Neck: Supple, no adenopathy Lung: breath sounds symmetric, no wheezing, rales or rhonchi Chest: symmetric movement, nontender Heart: regular rate and rhythm, normal S1, S2 no murmurs or rubs Abdomen: soft, moderate epigastric tenderness, mild diffuse tenderness, nondistended, normal bowel sounds Back: no vertebral tenderness, no CVAT Extremities: no deformities, moves all extremities symmetrically Neuro: Awake, alert, oriented, normal speech, cranial nerves intact, moves all extremities symmetrically Medications Administered Discontinued Medications Generic Name Dose Route Start Last Admin Trade Name [place] PRN Reason Stop Dose Admin Haloperidol Lactate 2.5 mg 04/15/24 08:45 04/15/24 09:21 Haloperidol Lactate 5 Mg/Ml Vial IVPUSH 04/15/24 08:46 2.5 mg STAT STA Administration Sodium Chloride 1,000 mls @ 999 mls/hr 04/15/24 08:45 04/15/24 09:23 Ns IV 04/15/24 09:45 999 mls/hr .Q1H1M STA Administration Ketorolac Tromethamine 15 mg 04/15/24 08:45 04/15/24 09:22 Ketorolac Tromethamine 15 Mg/Ml Vial IVPUSH 04/15/24 08:46 15 mg ONCE STA Administration Ketorolac Tromethamine 15 mg 04/15/24 10:58 04/15/24 11:17 Ketorolac Tromethamine 15 Mg/Ml Vial IVPUSH 04/15/24 10:59 15 mg ONCE STA Administration Morphine Sulfate 4 mg 04/15/24 10:58 04/15/24 11:16 Morphine Sulfate 4 Mg/Ml Cartridge IVPUSH 04/15/24 10:59 4 mg ONCE STA Administration Protocol Ondansetron HCl 4 mg 04/15/24 08:39 04/15/24 08:42 Ondansetron Hcl 4 Mg/2 Ml Vial IVPUSH 04/15/24 08:40 4 mg ONCE ONE Administration Ondansetron HCl 4 mg 04/15/24 11:01 04/15/24 11:16 Ondansetron Hcl 4 Mg/2 Ml Vial IVPUSH 04/15/24 11:02 4 mg ONCE ONE Administration Medical Decision Making Medical Decision Making MDM Narrative: 23-year-old female with a history of ADHD, cocaine use disorder, heroin use disorder who presents emergency department for evaluation of nausea, vomiting or abdominal pain which began last night and continued into the morning. Patient was been seen here in the emergency department multiple times with similar complaints. Patient was drinking alcohol, using cocaine and marijuana last evening. Patient was actively dry heaving here in the emergency department. Exam did reveal moderate epigastric tenderness and mild diffuse abdominal tenderness. Differential diagnosis: ?Includes but is not limited to viral syndrome, gastritis, cyclic vomiting syndrome, cannabis hyperemesis syndrome, electrolyte abnormalities, anemia Following evaluation was ordered: CBC, CMP, ethanol level, drug screen urine, lipase, magnesium, quantitative beta-hCG Course: 12:14 My interpretation patient's laboratory evaluation is as follows: CBC was normal. Chloride was elevated 111. Glucose elevated 130. AST elevated 33. Lipase was normal. Beta-hCG was below detectable limits. Ethanol level was 19. Patient was treated with normal saline x1 L. Her nausea was treated with Zofran 4 mg IV x2, Haldol 2.5 mg IV with good effect. Her abdominal pain was treated with Toradol 15 mg IV x2 and morphine 4 mg IV x1. Patient states that her nausea and her abdominal pain is improved and she does feel good enough to go home. I did emphasize the fact that her cyclic vomiting is most likely triggered by marijuana and she was aware that she needs to stop smoking marijuana. Patient was discharged home with printed and verbal instructions. She was also given a prescription for Zofran 4 mg ODT every 6-8 hours as needed for nausea and vomiting. Lab Data 04/15/24 09:32 04/15/24 09:32 Labs: Lab Results 04/15/24 Range/Units 09:32 WBC 7.6 (4.8-10.8) X10*3/uL RBC 4.28 (4.20-5.50) X10*6/uL Hgb 14.0 (12.0-16.0) g/dl Hct 40.1 (37.0-47.0) % MCV 93.7 (80.0-98.0) fL MCH 32.7 (27.0-33.0) pg MCHC 34.9 (31.0-35.0) g/dl RDW 13.2 (11.0-16.0) % Plt Count 179 (160-400) X10*3/uL MPV 11.6 (9.4-12.3) fL Immature Gran % (Auto) 0.3 (0.0-0.4) % Neut % (Auto) 64.2 (45-73) % Lymph % (Auto) 27.7 (20-40) % [place] % (Auto) 5.8 (2-11) % Eos % (Auto) 1.3 (0-4) % Baso % (Auto) 0.7 (0-2) % Lymph # (Auto) 2.1 (1.2-4.9) X10*3/uL [place] # (Auto) 0.4 (0.1-1.2) X10*3/uL Eos # (Auto) 0.1 (0.0-0.4) X10*3/uL Baso # (Auto) 0.1 (0.0-0.2) X10*3/uL Abs Immat Gran (auto) 0.02 (0.00-0.03) X10*3/uL Absolute Neuts (auto) 4.9 (2.0-8.3) x10*3/uL Absolute Nucleated RBC 0.000 (0.0-0.012) X10*3/uL Nucleated RBC % (auto) 0.0 (0.0-0.2) /100WBC Sodium 142 (135-145) mmol/L Potassium 4.1 D (3.3-5.1) mmol/L Chloride 111 H (96-108) mmol/L Carbon Dioxide 22 (22-29) mmol/L Anion Gap 13 (12-20) BUN 8 L (9-16) mg/dL Creatinine 0.79 (0.5-1.4) mg/dL Estim Creat Clear Calc 119.3 Estimated GFR > 60 Random Glucose 130 H (60-115) mg/dL Calcium 8.7 (8.4-10.2) mg/dL Magnesium 1.7 (1.6-2.6) mg/dL Total Bilirubin 0.7 (0.0-1.0) mg/dL AST 19 (5-31) U/L ALT 21 (0-31) U/L Alkaline Phosphatase 33 L (39-117) U/L Total Protein 7.1 (6.5-8.0) g/dL Albumin 4.2 (3.5-5.0) g/dL Lipase 20 (8-78) U/L Beta HCG, Quant < 2 mIU/mL Ethyl Alcohol 19 mg/dL Critical Care Time Critical Care Time Critical Care Time: Yes Total Critical Care Time: 35 Attestation: Critical Care: The patient was critically ill with a high probability of imminent or life threatening deterioration. I spent greater than 30 minutes of discontinuous time evaluating the patient,delivering critical care at the bedside, discussing and evaluating pertinent data with consultants. Critical care time does not include time spent performing separately billable procedures or teaching. Total time spent performing critical care was 35 minutes. Discharge Plan Discharge Clinical Impression: Cyclic vomiting syndrome, Abdominal pain, Acute dehydration Patient Disposition: Home, Self-Care Additional Instructions: Your blood tests were normal. Your test was negative. Your symptoms are consistent with with Cyclic Vomiting Syndrome. ? Cyclic Vomiting Syndrome is often caused by smoking marijuana or using THC products daily. ?This is called Cannabis Hyperemesis Syndrome when we believe that marijuana is the cause of your Cyclic Vomiting Syndrome. Smoking marijuana daily can change your brain chemistries and then this change activates the vomiting center in your brain . ?Once this brain center is activated, you vomit repeatedly for days and this vomiting ?causes you to have inflammation and pain in your stomach. The treatment is to stop smoking marijuana for at least 6 months. ?If you continue to smoke marijuana you will continue to get cycles of vomiting. Take Zofran ODT 8 mg pills, 1 pill dissolved in your mouth every 8 hours as needed for nausea and vomiting. Follow-up with your doctor in 2 days. Please return to the emergency department if your symptoms get worse or if you develop any symptoms that are concerning to you. Prescriptions: New ondansetron 4 mg tablet,disintegrating 4 mg PO Q6-8H PRN (Reason: nausea and vomiting) Qty: 20 0RF No Action metronidazole 500 mg tablet 500 mg PO BID 7 Days Qty: 14 0RF Rx Instructions: Take with food, Avoid alcohol and vinegar products norgestrel-ethinyl estradiol 0.3-30 mg-mcg tablet 1 tab PO DAILY Qty: 82 4RF fluconazole 150 mg tablet 150 mg PO ONCE 1 Days Qty: 1 0RF doxycycline hyclate 100 mg capsule 100 mg PO BID 7 Days Qty: 14 0RF fluconazole 150 mg tablet 150 mg PO Q3D Qty: 2 0RF Rx Instructions: may repeat second dose 72 hrs after first dose if symptoms persist cephalexin 500 mg capsule 500 mg PO QID 7 Days Qty: 28 0RF ondansetron 4 mg tablet,disintegrating 4 mg PO Q8H PRN (Reason: nausea and vomiting) Qty: 20 0RF spironolactone 25 mg tablet 25 mg PO BID Print Language: Indonesian
[2024-04-15] MEDS: ondansetron HCL 4 MG/2 ML VIAL IVPUSH ×2 (08:42→11:16)
[2024-04-15 08:46] VITALS: BP 107/67; PULSE 75; RESP 18; TEMP 35.9; O2SAT 100
[2024-04-15 08:56] VITALS: BP 133/89; PULSE 88; O2SAT 100; BMI 28.1
[2024-04-15] MEDS: Haloperidol Lactate 5 MG/ML VIAL 2.5 MG IVPUSH (09:21)
[2024-04-15] MEDS: Ketorolac Tromethamine 15 MG/ML VIAL IVPUSH ×2 (09:22→11:17)
[2024-04-15] MEDS: 0.9 % Sodium Chloride 1,000 ML 999 ML IV (09:23)
--- NOTE | 2024-04-15 09:35 | MHC.EDTECH ---
Patient made aware that we need a urine sample. Patient states she doesn't need to go at this time . Told patient to notify the RN or PCT when she needs to urinate. Patient agreed to notify someone when she needs to urinate so we can obtain the sample. Call ortiz placed within reach. Warm blanket given at patient request. Patient states she is comfortable and is resting quietly.
[2024-04-15 09:36] LABS: MANUAL DIFF FLAG NO
[2024-04-15 09:44] LABS: Basophils Absolute Auto 0.1 X10*3/uL (0.0-0.2); Basophils Percent Auto 0.7 % (0-2); Eosinophils Absolute Auto 0.1 X10*3/uL (0.0-0.4); Eosinophils Percent Auto 1.3 % (0-4); Hematocrit 40.1 % (37.0-47.0); Imm Gran Abs Auto 0.02 X10*3/uL (0.00-0.03); Imm Gran Pct Auto 0.3 % (0.0-0.4); Lymphocytes Absolute Auto 2.1 X10*3/uL (1.2-4.9); Lymphocytes Percent Auto 27.7 % (20-40); Mean Corpuscular HGB Conc 34.9 g/dl (31.0-35.0); Mean Corpuscular Hemoglobin 32.7 pg (27.0-33.0); Mean Corpuscular Volume 93.7 fL (80.0-98.0); Mean Platelet Volume 11.6 fL (9.4-12.3); Monocytes Absolute Auto 0.4 X10*3/uL (0.1-1.2); Monocytes Percent Auto 5.8 % (2-11); Neutrophils Absolute Auto 4.9 x10*3/uL (2.0-8.3); Neutrophils Percent Auto 64.2 % (45-73); Platelet Count 179 X10*3/uL (160-400); Red Blood Count 4.28 X10*6/uL (4.20-5.50); Red Cell Distribution Width 13.2 % (11.0-16.0); White Blood Count 7.6 X10*3/uL (4.8-10.8)
[2024-04-15 09:47] LABS: Ethanol 19 mg/dL
[2024-04-15 09:56] LABS: Alanine Aminotransferase 21 U/L (0-31); Albumin Level 4.2 g/dL (3.5-5.0); Alkaline Phosphatase 33 U/L (39-117); Anion Gap 13 (12-20); Aspartate Amino Transferase 19 U/L (5-31); Bilirubin Total 0.7 mg/dL (0.0-1.0); Blood Urea Nitrogen 8 mg/dL (9-16); Calcium 8.7 mg/dL (8.4-10.2); Carbon Dioxide 22 mmol/L (22-29); Chloride 111 mmol/L (96-108); Creatinine Clr Calc Pharmacy 119.3; Estimated Glomerular Filt Rate > 60; Glucose Random 130 mg/dL (60-115); Lipase 20 U/L (8-78); Magnesium 1.7 mg/dL (1.6-2.6); Potassium 4.1 mmol/L (3.3-5.1); Sodium 142 mmol/L (135-145); Total Protein 7.1 g/dL (6.5-8.0)
[2024-04-15 10:09] LABS: HCG Quantitative < 2 mIU/mL
[2024-04-15] MEDS: Morphine Sulfate 4 MG/ML CARTRIDGE IVPUSH (11:16)
[2024-04-15 11:24] VITALS: BP 127/83; PULSE 66; RESP 18; TEMP 36.1; O2SAT 97
--- NOTE | 2024-04-15 13:03 | PC.NURSE ---
This RN came back from lunch and room was empty; IV was removed by the patient and left in the room. I did call this patient and she knows that she should not of left without proper discharge instructions and staff removing the IV. Charge nurse is aware.
[2024-04-15 13:05] VITALS: BP 00/00; PULSE 0; RESP 0; TEMP -17.7; TEMP 0; O2SAT 0
== END 2024-04-15 13:08 | disposition home or self-care (01) ==
PROVIDERS: Emergency Provider Emergency Medicine Emergency Medical Services
DX: R11.15 Cyclical vomiting syndrome unrelated to migraine (principal); F12.90 Cannabis use, unspecified, uncomplicated; R10.9 Unspecified abdominal pain; E86.0 Dehydration; F17.210 Nicotine dependence, cigarettes, uncomplicated; R10.2 Pelvic and perineal pain; Z79.899 Other long term (current) drug therapy
CPT/HCPCS: 36415; 80053; 80307; 83690; 83735; 84702; 85025; 96374; 96375; 96376; 99285; J1630; J1885; J2270; J2405

== ENCOUNTER 2024-06-14 22:31 | Emergency (ER) | payer OTHER, SELFPAY ==
[2024-06-14 22:39] VITALS: BP 124/67; PULSE 98; RESP 18; TEMP 36.7; O2SAT 100; BMI 25.4
[2024-06-15] MEDS: HYDROcodone Bit/Acetam 5/325 TABLET 1 TAB PO (00:52)
[2024-06-15] MEDS: Ondansetron ODT 4 MG TAB.RAPDIS TRANSLINGU (00:53)
--- NOTE | 2024-06-15 05:32 | ED_ITS ---
HPI - Skin/Abscess/Foreign Bdy General Chief complaint: Skin/Abscess/Foreign Body Stated complaint: needs to have a boil drained Time Seen by Provider: 06/15/24 01:30 Source: patient Mode of arrival: ambulatory Limitations: no limitations History of Present Illness ED Provider: HPI narrative: Patient with history of hydradenitis suppurativa with recurrent episodes complaining of small abscess in the right with the rest of the thigh for last 4 days no pus discharge no surrounding redness Related Data Home Medications ?Medication ?Instructions ?Recorded ?Confirmed spironolactone 25 mg tablet 25 mg PO BID 10/05/23 Previous Rx's ?Medication ?Instructions ?Recorded metronidazole 500 mg tablet 500 mg PO BID 7 days #14 tabs 10/18/23 norgestrel 0.3 mg-ethinyl 1 tab PO DAILY #82 tabs 10/26/23 estradiol 30 mcg tablet cephalexin 500 mg capsule 500 mg PO QID 7 days #28 caps 02/07/24 doxycycline hyclate 100 mg capsule 100 mg PO BID 7 days #14 caps 02/07/24 fluconazole 150 mg tablet 150 mg PO Q3D 2 doses #2 tabs 02/07/24 ondansetron 4 mg disintegrating 4 mg PO Q8H PRN nausea and 02/07/24 tablet vomiting #20 tabs fluconazole 150 mg tablet 150 mg PO ONCE 1 day #1 tab 03/24/24 ondansetron 4 mg disintegrating 4 mg PO Q6-8H PRN nausea and 04/15/24 tablet vomiting #20 tabs doxycycline hyclate 100 mg tablet 100 mg PO BID #20 tabs 06/15/24 Allergies Allergy/AdvReac Type Severity Reaction Status Date / Time amoxicillin [AMOXICILLIN] Allergy Intermediate UTICARIA Verified 06/14/24 22:42 Review of Systems Review of Systems: Yes all other systems are reviewed and are negative [facility] Past Medical History Medical History Sacrococcygeal pilonidal cyst History of abnormal cervical Pap smear Genital herpes Obesity (BMI 30.0-34.9) ADHD Family History Family History Paternal Grandmother Lung cancer History of breast cancer Paternal Grandfather Liver cancer Prostate cancer Other Substance use disorder Social History Social History Housing: House Alcohol intake: current Alcohol intake frequency: a few times a month Alcohol t ype: hard liquor Patient Tobacco Use Status: Never used Tobacco e-Cigarette/Vaping Use: Never Used Second Hand Smoke Exposure: No Substance Use Type: Marijuana Advance Directives: No Advance Directives Information Provided: No service: No Current occupational status: employed Current occupational exposures/hazards: No Sexual orientation: Straight/Heterosexual Gender identity: Female Cognitive needs: No Hearing needs: No Vision needs: Yes Physical Exam Vital Signs: Vital Signs: Last Vital Signs Temp 98.1 F 06/14/24 22:39 Pulse 98 06/14/24 22:39 Resp 18 06/14/24 22:39 BP 124/67 06/14/24 22:39 Pulse Ox 100 06/14/24 22:39 O2 Del Method Room Air 06/14/24 22:39 BMI result Body Mass Index 25.4 Appearance: Alert. Oriented X3. No acute distress. ENT: Pharynx normal. Oral Mucosa moist Neck: Normal inspection. Neck supple. CVS: Normal heart rate and rhythm. Pulses normal. Respiratory: No respiratory distress. Equal air entry bilateral, no wheezing/rales/rhonchi Skin: Skin warm and dry. Normal skin color. Normal skin turgor. Extremities: No lower extremity edema. Small 2 x 2 cm abscess in the right thigh no medial aspect Neuro: Oriented X 3. Medications Administered Discontinued Medications Generic Name Dose Route Start Last Admin Trade Name Freq PRN Reason Stop Dose Admin Hydrocodone Bitart/Acetaminophen 1 tab 06/15/24 00:44 06/15/24 00:52 Hydrocodone Bit/Acetam 5/325 Tablet PO 06/15/24 00:45 1 tab ONCE ONE Administration Ondansetron HCl 4 mg 06/15/24 00:44 06/15/24 00:53 Ondansetron Odt 4 Mg Tab.Rapdis TRANSLINGU 06/15/24 00:45 4 mg ONCE ONE Administration Procedures Abscess I/D Site: lower extremity Side (if applicable): right Technique: needle aspiration Amount of fluid expressed (mL): 2 Discharge Plan Discharge Clinical Impression: Hidradenitis suppurativa Patient Disposition: Home, Self-Care Instructions: Hidradenitis Suppurativa (ED) Additional Instructions: Local care as advised Take antibiotic as prescribed Prescriptions: New doxycycline hyclate 100 mg tablet 100 mg PO BID Qty: 20 0RF No Action metronidazole 500 mg tablet 500 mg PO BID 7 Days Qty: 14 0RF Rx Instructions: Take with food, Avoid alcohol and vinegar products norgestrel-ethinyl estradiol 0.3-30 mg-mcg tablet 1 tab PO DAILY Qty: 82 4RF fluconazole 150 mg tablet 150 mg PO ONCE 1 Days Qty: 1 0RF doxycycline hyclate 100 mg capsule 100 mg PO BID 7 Days Qty: 14 0RF fluconazole 150 mg tablet 150 mg PO Q3D Qty: 2 0RF Rx Instructions: may repeat second dose 72 hrs after first dose if symptoms persist cephalexin 500 mg capsule 500 mg PO QID 7 Days Qty: 28 0RF ondansetron 4 mg tablet,disintegrating 4 mg PO Q8H PRN (Reason: nausea and vomiting) Qty: 20 0RF ondansetron 4 mg tablet,disintegrating 4 mg PO Q6-8H PRN (Reason: nausea and vomiting) Qty: 20 0RF spironolactone 25 mg tablet 25 mg PO BID Print Language: Czech
[2024-06-15] MEDS: Lidocaine HCl 1 % MPF 5 ML VIAL SUBCUT (05:52)
[2024-06-15 05:53] VITALS: BP 0/0; PULSE 0; RESP 0; TEMP -17.7; TEMP 0; O2SAT 0
== END 2024-06-15 05:53 | disposition home or self-care (01) ==
PROVIDERS: Emergency Provider Internal Medicine; PCP Family Medicine
DX: L73.2 Hidradenitis suppurativa (principal); Z79.899 Other long term (current) drug therapy
CPT/HCPCS: 10060; 99283; 99284; J2003

== ENCOUNTER 2024-06-22 09:48 | Outpatient (AMB) | payer OTHER, SELFPAY ==
--- NOTE | 2024-06-22 09:53 | MHC.OFFVIS ---
Vital Signs 06/22/24 09:56 Height 5 ft 7 in Weight 162 lb 7.691 oz BMI 25.4 Intake Visit Reasons: ? recurrent pilonidal cyst Intake Note: This patient presents for recurrent pilonidal cyst, and groin. Pt c/o; reports completed round of antibiotics, drainage. 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 recurrent pilonidal cyst: Details: 23-year-old female here for a recurrent abscess. She says she has had this recurrent area of swelling and tenderness near the right groin towards the perineal area. She says she has been to the ER twice the past 3 months or so to have this drained She is well known to me for excision of a large pilonidal cyst in 2020. She says she had been diagnosed to have hidradenitis as well and has been having this areas of swelling on her buttocks as well as the groin. She actually had started seeing a robotic toy inventor and was supposed to be started on Humira but her robotic toy inventor went on maternity leave. [facility] Medical History Sacrococcygeal pilonidal cyst History of abnormal cervical Pap smear Genital herpes Obesity (BMI 30.0-34.9) ADHD Family History Paternal Grandmother Lung cancer History of breast cancer Paternal Grandfather Liver cancer Prostate cancer Other Substance use disorder Social History Housing: House Alcohol intake: current Alcohol intake frequency: a few times a month Alcohol type: hard liquor Patient Tobacco Use Status: Never used Tobacco e-Cigarette/Vaping Use: Never Used Second Hand Smoke Exposure: No Substance Use Type: Marijuana service: No Current occupational status: employed Current occupational exposures/hazards: No Sexual orientation: Straight/Heterosexual Gender identity: Female Cognitive needs: No Hearing needs: No Vision needs: Yes Female Reproductive History Menstrual Age of Menarche: 10 Physical Exam Const General: comfortable and no acute distress Resp Effort & Inspection: normal respiratory effort Cardio Rate: regular rate Back/Spine/Pelvis Other: Excision site on the sacrococcygeal area does not show any recurrent pilonidal disease Skin Other: Right groin towards the perineal area - note of an induration, about 2.5 cm in diameter, dry, non fluctuant, no cellulitis at this time, suggestive of hidradenitis, with adjacent fibrotic changes Assessment & Plan Assessment & Plan (1) Hidradenitis suppurativa: Code(s): L73.2 - Hidradenitis suppurativa Category: Medical Plan: She has this area of recurrent swelling on the right groin that appears to be consistent with hidradenitis suppurativa. I did explain to her the option of proceeding with excision for this. I reviewed the risks including but not limited to bleeding and infections She says she will think about this. She is scheduled to see her robotic toy inventor again as she was supposed to be on Humira for systemic control of her hidradenitis. She says she will let me know if she decides to proceed with excision. Coding Level of Care Code New Pt Level 3 (55659) Diagnoses Hidradenitis suppurativa L73.2
[2024-06-22 09:56] VITALS: BMI 25.4
== END 2024-06-22 10:12 | disposition home or self-care (01) ==
PROVIDERS: PCP Family Medicine; Visit Provider Surgery
DX: L73.2 Hidradenitis suppurativa (principal)
CPT/HCPCS: 99203

== ENCOUNTER 2024-06-26 08:13 | Outpatient (AMB) | payer OTHER, SELFPAY ==
--- NOTE | 2024-06-26 08:49 | MHC.PC.OV ---
Vital Signs 06/26/24 08:57 Height 5 ft 7 in Weight 171 lb 6 oz BMI 26.8 BP 120/59 L Blood Pressure Location Lt brachial Position Sitting Respiration 14 Pulse 96 Pulse Source Pulse Oximeter Temp 97.7 F Temp Source Oral Pulse Oximetry (%) 99 Oxygen Delivery Method Room Air Intake Visit Reasons: Physical / Dr. 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 Required: No Is last menstrual period known: Yes Last menstrual period: 06/14/24 Post menopausal: No Patient : No Allergies amoxicillin [AMOXICILLIN] Allergy (Intermediate, Verified 06/26/24 08:54) UTICARIA Medication List - Last Reconciled 06/26/24 by Sweta Haney MD norgestrel-ethinyl estradiol 0.3-30 mg-mcg 1 tab PO DAILY ondansetron 4 mg PO Q6-8H PRN spironolactone 25 mg PO BID Tobacco use date assessed: 05/22/22 Dental Screening Dental Screen Date: 06/26/24 Did you have a dental visit in the last 12 months?: Yes Did you have a dental problem in the last 6 months where you did not have access to dental care?: No Was dental information given to patient?: No HPI HPI Comments History of Present Illness Details This is a 23 year old with a past medical history of hidradenitis presenting for annual exam. PCP Dr Garrett Very stiff neck since yesterday. Woke up could hardly move it. After working an overnight shift. Has happened multiple times in the past. Normal in between. When it happens puts icy hot, lidocaine on the area. HS: Follows with Dr Pinto. She is on spironolactone. She would like to switch as she is having a lot of toruble getting through to the office. She was supposed to start humira Follows with hybrid powertrain development engineer Deysi BRADY CONSTITUTIONAL: Denies weight loss, fever and chills. HEENT: Denies changes in vision and hearing. RESPIRATORY: Denies SOB and cough. CV: Denies palpitations and CP GI: Denies abdominal pain, nausea, vomiting and diarrhea. : Denies dysuria and urinary frequency. MSK: Denies new myalgia and joint pain. SKIN: Denies rash and pruritus. NEUROLOGICAL: Denies headache PSYCHIATRIC: Denies recent changes in mood. PHYSICAL EXAM: GENERAL: Alert and oriented x 3. NAD EYES: EOMI. Anicteric. HENT: Moist mucous membranes. No scleral icterus. No cervical lymphadenopathy. LUNGS: Clear to auscultation bilaterally. CARDIOVASCULAR: Regular rate and rhythm. No murmur. No JVD. ABDOMEN: Soft, non-tender +bs EXTREMITIES: No edema. Non-tender. SKIN: No rashes or lesions. Warm. NEUROLOGIC: No focal neurological deficits. CN II-XII grossly intact PSYCHIATRIC: Cooperative. Appropriate mood and affect [facility] Medical History Sacrococcygeal pilonidal cyst History of abnormal cervical Pap smear Genital herpes Obesity (BMI 30.0-34.9) ADHD Family History Paternal Grandmother Lung cancer History of breast cancer Paternal Grandfather Liver cancer Prostate cancer Other Substance use disorder Social History Housing: House Alcohol intake: current Alcohol intake frequency: a few times a month Alcohol type: hard liquor Patient Tobacco Use Status: Never used Tobacco e-Cigarette/Vaping Use: Never Used Second Hand Smoke Exposure: No Substance Use Type: Marijuana service: No Current occupational status: employed Current occupational exposures/hazards: No Sexual orientation: Straight/Heterosexual Gender identity: Female Cognitive needs: No Hearing needs: No Vision needs: Yes Female Reproductive History Menstrual Age of Menarche: 10 Date of last menstrual period: 06/14/24 Questionnaire PHQ-9 Over the last 2 weeks, how often have you been bothered by any of the following problems? 1. Little interest or pleasure in doing things: not at all 2. Feeling down, depressed, or hopeless: not at all 3. Trouble falling or staying asleep, or sleeping too much: not at all 4. Feeling tired or having little energy: not at all 5. Poor appetite or overeating: more than half the days 6. Feeling bad about yourself - or that you are a failure or have let yourself or your family down: not at all 7. Trouble concentrating on things, such as reading the newspaper or watching television: not at all 8. Moving or speaking so slowly that other people could have noticed. Or the opposite - being so fidgety or restless that you have been moving around a lot more than usual: not at all 9. Thoughts that you would be better off or of hurting yourself in some way: not at all Total score: 2 Depression Screening Interpretation: Negative Depression Screening Done: Yes 58046 - PHQ-9 Billing: Yes Source: Developed by Drs. Fred Alves, Dominga Sweet, Leonardo Roman and colleagues, with an educational blaise from [employer]. Thrive Questionnaire Date Thrive assessed: 06/26/24 I am a: Patient What is your living situation today?: I have a steady place to live Within the past 12 months, did the food you bought not last and you didn't have the money to get more?: Sometimes True Within the past 12 months, did you worry whether your food would run out before you got money to buy more?: Sometimes True Do you have trouble paying for medicines?: Yes Do you have trouble getting transportation to medical appointments?: No Do you have trouble paying your heating and electricity bill?: Yes Do you have trouble taking care of your child, family member or friend?: No Do you have trouble with day-to-day activities such as bathing, preparing meals, shopping, managing finances, etc.?: No Are you currently unemployed and looking for a job?: No Are you interested in more education?: Yes Please select the resources that you would like help with: Housing/Detention, Food and Paying for medicine Currently or been in a relationship where the following occur: No concerns reported THRIVE Score: 3 AUDIT C Alcohol Use Questionnaire (AUDIT-C) 1. How often do you have a drink containing alcohol?: 2-4 times a month 2. How many drinks containing alcohol do you have on a typical day when you are drinking?: 3 or 4 3. How often do you have six or more drinks on one occasion?: Never Total Score: 3 Score Reviewed/Action Taken: Yes TAO-7 AMB Questionnaire TAO-7 Date TAO - 7 assessed: 06/26/24 Feeling nervous, anxious, or on edge: 1 = Several days Not being able to stop or control worryin = Several days Worrying too much about different things: 1 = Several days Trouble relaxin = Several days Being so restless that it is hard to sit still: 1 = Several days Becoming easily annoyed or irritable: 1 = Several days Feeling afraid as if something awful might happen: 1 = Several days Total TAO-7 score (0-4 normal; 5-9 mild; 10-14 moderate; 15-21 severe): 7 Source: Developed by Drs. Fred Alves, Dominga Sweet, Leonardo Roman and colleagues, with an educational blaise from [employer]. TAO-7 Assessment Billing TAO-7 Assessment Tool: TAO-7 Assessment 26383 Physical exam (Primary Care) Vital Signs: Last Vital Signs Temp 97.7 F 06/26/24 08:57 Pulse 96 06/26/24 08:57 Resp 14 06/26/24 08:57 BP 120/59 L 06/26/24 08:57 Pulse Ox 99 06/26/24 08:57 Oxygen Delivery Method Room Air 06/26/24 08:57 BMI result Body Mass Index 26.8 Tobacco/Smoking Status: Tobacco use Status Tobacco use date assessed 05/22/22 06/26/24 08:50 Patient Tobacco Use Status Never used Tobacco 06/26/24 08:50 e-Cigarette/Vaping Use Never Used 06/26/24 08:50 PHQ-9: PHQ-9 Score PHQ-9: Total score 2 06/26/24 08:59 Depression Screening Interpretation: Negative Thrive Assessment: Date of Thrive Assessment Date Thrive assessed 06/26/24 06/26/24 08:50 Currently or been in a relationship where the following occur: No concerns reported Coding Level of Care Code Est Pt Prev Care 18-39y(61792) Diagnoses Physical exam Z00.00 Neck pain M54.2 Hydradenitis L73.2 Additional Codes TAO-7 Assessment Billing - TAO-7 Assessment Tool: TAO-7 Assessment 67857 ([id number]) PHQ-9 - 65169 - PHQ-9 Billing: Yes ([id number]) Assessment & Plan Assessment & Plan (1) Physical exam: Code(s): Z00.00 - Encounter for general adult medical examination without abnormal findings Plan: 23 y/o for physical exam. Preventive measures for age discussed (2) Neck pain: Code(s): M54.2 - Cervicalgia Category: Medical Plan: flexeril before bed prn. Possible referral pt etc (3) Hydradenitis: Code(s): L73.2 - Hidradenitis suppurativa Category: Medical Plan: referral to dermatology placed Orders: Orders TSH reflex Free T4 Today R73.09 - Other abnormal glucose, Z13.220 - Encounter for screening for lipoid disorders, Z13.228 - Encounter for screening for other metabolic disorders Hemoglobin A1c Today R73.09 - Other abnormal glucose, Z13.220 - Encounter for screening for lipoid disorders, Z13.228 - Encounter for screening for other metabolic disorders Lipid Panel Today R73.09 - Other abnormal glucose, Z13.220 - Encounter for screening for lipoid disorders, Z13.228 - Encounter for screening for other metabolic disorders Referrals Dermatology Referral L73.2 - Hidradenitis suppurativa Medications: New cyclobenzaprine 10 mg PO BEDTIME PRN 30 tabs 0RF muscle spasm spironolactone 25 mg PO BID 180 tabs 3RF
[2024-06-26 08:57] VITALS: BP 120/59; PULSE 96; RESP 14; TEMP 36.5; O2SAT 99; BMI 26.8
== END 2024-06-26 09:20 | disposition home or self-care (01) ==
PROVIDERS: PCP Internal Medicine; Visit Provider Internal Medicine
DX: Z00.00 Encounter for general adult medical examination without abnormal findings (principal); M54.2 Cervicalgia; L73.2 Hidradenitis suppurativa

== ENCOUNTER → 2024-06-26 08:13 | Outpatient (BNVA) | payer OTHER, SELFPAY | PROVIDERS: PCP Internal Medicine; Visit Provider Internal Medicine | DX: Z00.00 Encounter for general adult medical examination without abnormal findings (principal); M54.2 Cervicalgia; L73.2 Hidradenitis suppurativa | CPT/HCPCS: 96127 ==

== ENCOUNTER 2024-06-26 09:34 | Outpatient (REF) | payer OTHER, SELFPAY ==
[2024-06-26 11:15] LABS: Estimated Average Glucose 100 mg/dL; Hemoglobin A1C 106.1306 umol/L; Hemoglobin A1c % 5.1 % (<6.0); Total Hemoglobin (HGBA1C) 3293.3306 umol/L
[2024-06-26 11:18] LABS: Cholesterol 131 mg/dL (<200); HDL Cholesterol 59 mg/dL (>40); LDL Cholesterol Calculated 63 mg/dL (<100); Triglycerides 48 mg/dL (<150)
== END 2024-06-26 09:35 | disposition home or self-care (01) ==
LOC: HO.WFDLDS 09:34
PROVIDERS: Visit Provider Internal Medicine
DX: R73.09 Other abnormal glucose (principal); Z13.220 Encounter for screening for lipoid disorders; Z13.228 Encounter for screening for other metabolic disorders; Z13.29 Encounter for screening for other suspected endocrine disorder
CPT/HCPCS: 36415; 80061; 83036; 84443

== ENCOUNTER 2024-07-21 14:46 | Outpatient (AMB) | payer OTHER, SELFPAY ==
--- NOTE | 2024-07-21 14:53 | A.OFFVIS_ITS ---
Vital Signs 07/21/24 15:05 Height 5 ft 7 in Weight 162 lb BMI 25.4 BP 108/72 Intake Visit Reasons: Positive Director Nurses' Registry: Director Nurses' Registry Present (Carlita) Accompanied by: Friend Allergies amoxicillin [AMOXICILLIN] Allergy (Intermediate, Verified 07/21/24 14:56) UTICARIA Medication List - Last Reconciled 07/21/24 by Lili Currie CNM norgestrel-ethinyl estradiol 0.3-30 mg-mcg 1 tab PO DAILY ondansetron 4 mg PO Q6-8H PRN spironolactone 25 mg PO BID Is last menstrual period known: Yes Last menstrual period: 06/06/24 Post menopausal: No Patient : Yes HPI HPI Positive : Details: Patient is here because her period was late and she was a little bit concerned and then she felt nauseous this morning when she vaped and so she realize something was up and she did a home test and it was positive. She called to be seen to get a confirmation. She reports she has been on control pills but she has not been taking the placebo pills because she thought they were not important and what she was doing was stopping the pills when she got to the placebos a few days later getting her. And then waiting till her. Had gone away and then restarting the control pills after the so she was always off the active pills for longer than the recommended 7 day. period. She did not know exactly when her last period was but she knows she had it in May and her 1st symptom was the nausea with the vaping this morning. She does not have any other symptoms such as nausea at any other time or breast tendinous or anything else. She feels some very mild little cramping but that is all and her period was due so she thought that is all that was. She is here with a good friend.. She is voicing that this is not an ideal time for her and there some issues with the person she is involved with, She does not have family in the area as her father has moved to [place] and her mother has moved to [place] and she was visiting her mother this winter and she is flying to [place] on Wednesday to be with her father for his birthday. She lives here in [place] but she does not have any other family here. PENDING SALE TO [facility] Medical History Sacrococcygeal pilonidal cyst History of abnormal cervical Pap smear Genital herpes Obesity (BMI 30.0-34.9) ADHD Family History Paternal Grandmother Lung cancer History of breast cancer Paternal Grandfather Liver cancer Prostate cancer Other Substance use disorder Social History Housing: House Alcohol intake: current Alcohol intake frequency: a few times a month Alcohol type: hard liquor Patient Tobacco Use Status: Never used Tobacco e-Cigarette/Vaping Use: Never Used Second Hand Smoke Exposure: No Substance Use Type: Marijuana Patient : Yes service: No Current occupational status: employed Current occupational exposures/hazards: No Sexual orientation: Straight/Heterosexual Gender identity: Female Cognitive needs: No Hearing needs: No Vision needs: Yes Female Reproductive History Menstrual Age of Menarche: 10 Duration of menses: 3-5 days Date of last menstrual period: 06/06/24 control method: pills Total pregnancies: 0 Date of last pap smear: 09/01/22 History of abnormal pap smear: Yes Physical Exam Vital Signs: Last Vital Signs BP 108/72 07/21/24 15:05 BMI result Body Mass Index 25.4 Results AMB Test Urine AMB Test Urine Positive Last Edit by Elvi Ramírez CMA on 16:17 Results Reviewed Results Reviewed: preg test pos. Assessment & Plan Assessment & Plan (1) test positive: Code(s): Z32.01 - Encounter for test, result positive Category: Medical Plan Discussed many issues during this visit today. Most importantly she is not sure what she is going to do with the she has to think about it she is in shock. Discussed that the important thing is that she spent a little time thinking for herself and getting clear with what she wants to do. Discussed that if she does want to continue the since we do not have a birthing center and can not provide continuity for care that she would best be served by seeking complete comprehensive care and delivery with a practice that can provide that from start to finish and I would recommend [facility]. If she decides not to continue the then I would encourage [facility] to [facility] as she can and arrange to be seen. Discussed that if she decides to terminate the the soon as she does is the better and it can be achieved more easily with the medication methods then otherwise and things can become more complicated if she waits. I had her look up both phone numbers in her phone so she knew her options. It is already late in the day in too late to make any plans especially as she is leaving the state on Wednesday for a week. Discussed that if she chooses the latter option she might be well served by making a call from wherever she is for an appointment for when she comes back discussed that there is no possibility on a late Wednesday afternoon of arranging for an ultrasound at this time. I did review danger signs of ectopic or the possibility of miscarriage in her early in what she should do even if out a state Regardless she is welcome to return for her scheduled visit when she returns. She did check the hours a [facility] and they had already closed for the day as it is late. Orders: Orders AMB HCG Urine Test Today Z32.01 - Encounter for test, result positive Coding Level of Care Code Est Pt Level 3 (64462) Diagnoses test positive Z32.01
[2024-07-21 15:05] VITALS: BP 108/72; BMI 25.4
--- OUTSIDE RECORDS SUMMARY | 2024-07-21 16:14 | XMS_ITS | Clinical Summary ---
Author Organization [facility] Address [address] [place] [address] Care Team Providers Care House Carpenter Helper Name Role Phone Mervin Teran MD Primary Care Provider + Allergies Active Allergy Reactions Severity Noted Date Comments Amoxicillin 10/07/2012 Penicillins Hives/Urticaria 07/12/2019 Medications Medication Sig Dispensed Refills Start Date End Date Status norgestrel-ethinyl estradiol (LO/OVRAL) 0.5-50 MG-MCG per tabletIndications:Connor nidal disease,Abscess of buttock, left Take 1 tablet by mouth daily. 0 Active naproxen (NAPROSYN) 500 MG tablet Take 1 Tab by mouth 2 times daily (with meals) for 30 days. 60 Tab 1 09/18/2019 Active cyclobenzaprine (FLEXERIL) 10 MG tablet Take 1 Tab by mouth at bedtime as needed for Muscle spasms. 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 Herpes simplex 06/29/2017 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/07/2012 Immunizations Name Administration Dates Next Due PPD-RBMG 07/12/2019 Tdap 11/12/2017 Family History Medical History Relation Name Comments HIV Maternal Grandfather healthy Mother HIV Paternal Grandfather Hypertension Paternal Grandfather Cancer of the Liver Paternal Grandmother Cancer of the Lung Paternal Grandmother s moker [place] Paternal Grandmother Relation Name Status Comments Maternal Grandfather Mother Paternal Grandfather Paternal Grandmother Social History Tobacco Use Types Packs/Day Years Used Date Smoking Tobacco: Never Smokeless Tobacco: Never Alcohol Use Standard Drinks/Week Comments No 0 (1 standard drink = 0.6 oz pur e alcohol) Financial Resource Strain Answer Date R ecorded How hard is it for you to pa y for the very basics like food, housing, medical care, and heating? Not very hard 07/12/2019 Food Insecurity Answer Date Recorded Within the past 12 months, y ou worried that your food would run out before you got money to buy more. Never true 07/12/2019 Within the past 12 months, t he food you bought just didn't last and you didn't have money to get more. Never true 07/12/2019 Transportation Needs Answer Date Record ed In the past 12 months, has l ack of transportation kept you from medical appointments or from getting medications? No 08/2019 In the past 12 months, has l ack of transportation kept you from meetings, work, or getting things needed for daily living? No 07/12/2019 Sex Assigned at Date Recorded Not on file Last Filed Vital Signs Vital Sign Reading Time Taken Comments Blood Pressure 108/64 07/12/2019 3:08 PM EST Pulse 88 07/12/2019 3:08 PM EST Temperature 36.8 ??C (98.2 ??F) 07/12/2019 3:08 PM ES T Respiratory Rate 14 07/12/2019 3:08 PM EST Oxygen Saturation 98% 07/12/2019 3:08 PM EST Inhaled Oxygen Concentration - - Weight 91.2 kg (201 lb) 07/12/2019 3:08 PM EST Height 175.3 cm (5' 9 ) 07/12/2019 3:08 PM EST Body Mass Index 29.68 07/12/2019 3:08 PM EST Plan of Treatment Health Maintenance Due Date Last Done Comments Covid-19 Vaccine (#1) 03/11/1999 HUMAN PAPILLOMAVIRUS (HPV) ( 1 - 2-dose series) 2009 CERVICAL CANCER SCREENING 09/09/2019 INFLUENZA (#1) 2024 BMI CHECK/ADVISE 05/10/2024 07/12/2019 BASELINE HEALTH EXAM 18-39 07/11/202407/11, 07/12/2019, 11/12/2017, Additional history exists CHOLESTEROL SCREENING 07/11/2024 07/12/2019, 018 DTAP/TDAP/TD (2 - Td or Tdap) 11/13/2027 11/12/2017 PNEUMOCOCCAL VACCINE FOR HIG H RISK PATIENTS (#1) 09/09/2063 Care Teams House Carpenter Helper Relationship Specialty Start Date End Date Mervin Teran MD [address] [place] [id number] PCP - General Internal Medicine 11/04/21
== END 2024-07-21 16:17 | disposition home or self-care (01) ==
LOC: HO.HWS 14:46
PROVIDERS: PCP Internal Medicine; Visit Provider Advanced Practice Midwife
DX: Z32.01 Encounter for pregnancy test, result positive (principal)
CPT/HCPCS: 99213

== ENCOUNTER → 2024-07-21 14:46 | Outpatient (BNVA) | payer OTHER, SELFPAY | PROVIDERS: PCP Internal Medicine; Visit Provider Advanced Practice Midwife | DX: Z34.91 Encounter for supervision of normal pregnancy, unspecified, first trimester (principal) | CPT/HCPCS: 81025 ==

== ENCOUNTER 2024-09-18 02:56 | Emergency (ER) | payer OTHER, SELFPAY ==
[2024-09-18 03:01] VITALS: BP 102/50; PULSE 91; RESP 14; TEMP 36.1; O2SAT 96; BMI 28.2
--- OUTSIDE RECORDS SUMMARY | 2024-09-18 04:19 | XMS_ITS | Continuity of Care Document ---
Author Organization [facility] Address [address] [place] [id number]- Care Team Providers Care Manager Of Selection And Assessment Name Role Phone Sweta Haney MD Primary Care Physician Encounter [facility] [place] Date(s): 08/18/24 - 09/17/[address] [id number] Attending Physician: Chon Avitia Admitting Physician: Chon Avitia Referring Physician: Chon Avitia Encounter Type: Triage Allergies, Adverse Reactions, Alerts Substance Criticality Severity Reaction Reaction Severity Status amoxicillin Active Medications Sulfamethoxazole 0 Refills, Maintenance, 05/30/13 1:10:53 PM EST Start Date: 05/30/13 Status: Ordered Repeat number: 1 Problem List No Known Problems Patient Care team information Care Team Personnel Name: Sweta Haney MD Position: Reference Physician Member Role: PCP Address: [address] [place] [id number] Telecom: Care Team Related Persons Name: AURA BROOKS Name: CHARANJIT RANGEL Insurance Providers Guarantor name: JOANA Health Plan Information #: 1 Payer: [employer] OPEN [employer]ESS Member Number: NA Policy Number: NA Group Number: NA
[2024-09-18] MEDS: cephALEXin 500 MG CAPSULE PO (08:25)
[2024-09-18] MEDS: oxyCODONE HCl Immed Release 5 MG TABLET PO (08:25)
[2024-09-18] MEDS: Doxycycline Monohydrate 100 MG CAPSULE PO (08:25)
--- NOTE | 2024-09-18 08:27 | ED.SKABFB ---
HPI - Skin/Abscess/Foreign Bdy General Chief complaint: Skin/Abscess/Foreign Body Stated complaint: cyst Time Seen by Provider: 09/18/24 08:01 Source: patient Mode of arrival: ambulatory Limitations: no limitations History of Present Illness ED Provider: Sy Culp PA-C HPI narrative: 24 y/o female with history of hidradenitis who presents to the ER for evaluation of a painful abscess on her right buttock for the last 3 days. She is tearful due to severe pain. she denies any drainage from the area. she reports it is red and warm extending into the buttock. no fever or chills. she is on spironolactone and pending insurance auth for Humiria. complaint: abscess/boil Onset (ago): day(s) Tetanus up to date: yes Location: buttocks Severity: severe Quality: aching and sharp Pain Consistency: constant Relieving factors: none Exacerbating factors: movement Context: other (recently shaved the area before going on vacation) Associated symptoms: denies other symptoms Treatments prior to arrival: none Related Data Previous Rx's ?Medication ?Instructions ?Recorded norgestrel 0.3 mg-ethinyl 1 tab PO DAILY #82 tabs 10/26/23 estradiol 30 mcg tablet ondansetron 4 mg disintegrating 4 mg PO Q6-8H PRN nausea and 04/15/24 tablet vomiting #20 tabs spironolactone 25 mg tablet 25 mg PO BID #180 tabs 06/26/24 cephalexin 500 mg capsule 500 mg PO Q6H 7 days #28 caps 09/18/24 doxycycline hyclate 100 mg tablet 100 mg PO BID #14 tabs 09/18/24 ondansetron 4 mg disintegrating 4 mg PO Q8H PRN nausea and 09/18/24 tablet vomiting #7 tabs Allergies Allergy/AdvReac Type Severity Reaction Status Date / Time amoxicillin [AMOXICILLIN] Allergy Intermediate UTICARIA Verified 09/18/24 03:04 Review of Systems Review of Systems: Yes all other systems are reviewed and are negative PMFSH Past Medical History Medical History Sacrococcygeal pilonidal cyst History of abnormal cervical Pap smear Genital herpes Obesity (BMI 30.0-34.9) ADHD Family History Family History Paternal Grandmother Lung cancer History of breast cancer Paternal Grandfather Liver cancer Prostate cancer Other Substance use disorder Social History Social History Housing: House Alcohol intake: current Alcohol intake frequency: a few times a month Alcohol type: hard liquor Patient Tobacco Use Status: Never used Tobacco e-Cigarette/Vaping Use: Never Used Second Hand Smoke Exposure: No Substance Use Type: Marijuana Advance Directives: No Advance Directives Information Provided: Yes Do you have a plan to hurt others: No Plan service: No Current occupational status: employed Current occupational exposures/hazards: No Sexual orientation: Straight/Heterosexual Gender identity: Female Cognitive needs: No Hearing needs: No Vision needs: Yes Physical Exam Vital Signs: Vital Signs: Last Vital Signs Temp 96.9 F 09/18/24 03:01 Pulse 91 09/18/24 03:01 Resp 14 09/18/24 03:01 BP 102/50 L 09/18/24 03:01 Pulse Ox 96 09/18/24 03:01 O2 Del Method Room Air 09/18/24 03:01 BMI result Body Mass Index 28.2 Appearance: Alert. Oriented X3. No acute distress. HEENT: normal inspection CVS: Normal heart rate and rhythm. Pulses normal. Respiratory: No respiratory distress. Skin: Skin warm and dry. Normal skin color. Normal skin turgor. on the right posterior buttock there is a moderate sized area of erythema wtih central fluctuance of 1.5cm, very tender. mild induration, no anal/rectal involvement Extremities: normal inspection of all 4 extremities, no joint swelling Neuro: Oriented X 3. grossly normal Medications Administered Discontinued Medications Generic Name Dose Route Start Last Admin Trade Name Freq PRN Reason Stop Dose Admin Cephalexin HCl 500 mg 09/18/24 08:17 09/18/24 08:25 Cephalexin 500 Mg Capsule PO 09/18/24 08:18 500 mg ONCE ONE Administration Doxycycline Monohydrate 100 mg 09/18/24 08:17 09/18/24 08:25 Doxycycline Monohydrate 100 Mg Capsule PO 09/18/24 08:18 100 mg ONCE ONE Administration Oxycodone HCl 5 mg 09/18/24 08:17 09/18/24 08:25 Oxycodone Hcl Immed Release 5 Mg Tablet PO 09/18/24 08:18 5 mg ONCE ONE Administration Medical Decision Making Medical Decision Making MDM Narrative: 24-year-old female presents to the ER for evaluation of a painful right lower buttock abscess status and present for 3 days. There is mild surrounding cellulitis and induration. It needs incision and drainage and she is amenable to this. see procedure note. Patient tolerated well. will prescribe antibiotics for surrounding cellulitis. Differential Diagnosis Differential Diagnoses: The differential diagnosis associated with the presentation includes abscess, cellulitis, dominik's gangrene, perirectal abscess Admission/Observation Consideration of admission/observation: Escalation of care including admission/observation considered External Record Review External record reviewed: Prior outpatient labs and Prior outpatient radiology Prescription Management I considered prescription management with: Pain Medication and Antibiotic Chronic Conditions Patient?s care impacted by: Other (hidradenitis) Procedures Abscess I/D Site: rayray-rectal Side (if applicable): right Local Anesthetic: lidocaine 1% Amount of anesthesia used (mL): 2 Technique: incised with blade Sent for culture/gram staining?: No Irrigation: Yes Packing used?: none Critical Care Time Critical Care Time Critical Care Time: No Discharge Plan Discharge Clinical Impression: Abscess of skin or subcutaneous tissue, Cellulitis Patient Disposition: Home, Self-Care Instructions: Cellulitis (ED), Abscess Incision and Drainage (DC) Additional Instructions: Take the prescribed antibiotics as directed, complete the entire course and do not miss any doses Use warm compresses or warm baths with soapy water to help fight the infection Take motrin and tylenol as needed for pain If you develop new or worsening symptoms call 911 or come back to the ER for further evaluation. Prescriptions: New doxycycline hyclate 100 mg tablet 100 mg PO BID Qty: 14 0RF cephalexin 500 mg capsule 500 mg PO Q6H 7 Days Qty: 28 0RF ondansetron 4 mg tablet,disintegrating 4 mg PO Q8H PRN (Reason: nausea and vomiting) Qty: 7 0RF No Action norgestrel-ethinyl estradiol 0.3-30 mg-mcg tablet 1 tab PO DAILY Qty: 82 4RF ondansetron 4 mg tablet,disintegrating 4 mg PO Q6-8H PRN (Reason: nausea and vomiting) Qty: 20 0RF spironolactone 25 mg tablet 25 mg PO BID Qty: 180 3RF Stand Alone Forms: Work/School Release Interventions: ED Discharge Assessment Last Done: 09/18/24 09:00 Print Language: Puerto Rican
[2024-09-18 09:00] VITALS: BP 101/47; PULSE 60; RESP 16; TEMP 36.8; O2SAT 98
[2024-09-18] MEDS: Lidocaine HCl 1 % MPF 5 ML VIAL INFILTRATI (09:00)
== END 2024-09-18 09:01 | disposition home or self-care (01) ==
PROVIDERS: Emergency Provider Emergency Medicine Emergency Medical Services; PCP Internal Medicine
DX: L02.31 Cutaneous abscess of buttock (principal); L03.317 Cellulitis of buttock
CPT/HCPCS: 10060; 99283; 99284; J2003

== ENCOUNTER 2024-11-07 09:57 | Outpatient (REF) | payer OTHER, SELFPAY ==
[2024-11-07 12:19] LABS: Syphilis Screen Nonreactive (Nonreactive)
[2024-11-07 12:20] LABS: HBc Num1 0.10 S/CO (0.00-0.79); HIV Num 1 0.05 S/CO (0.00-0.99); ~HepC Num1 0.12 S/CO (0.00-0.79); ~Hepatitis C Antibody Nonreactive (Nonreactive)
== END 2024-11-07 09:58 | disposition home or self-care (01) ==
LOC: HO.LAB 09:57
PROVIDERS: PCP Internal Medicine; Visit Provider Advanced Practice Midwife
DX: Z01.419 Encounter for gynecological examination (general) (routine) without abnormal findings (principal); Z20.2 Contact with and (suspected) exposure to infections with a predominantly sexual mode of transmission
CPT/HCPCS: 36415; 86704; 86780; 86803; 87389

== ENCOUNTER 2024-11-07 09:57 | Outpatient (AMB) | payer OTHER, SELFPAY ==
--- NOTE | 2024-11-07 09:59 | MHC.OFFVIS ---
Vital Signs 11/07/24 10:01 Height 5 ft 7 in Weight 183 lb BMI 28.7 BP 110/62 Intake Visit Reasons: annual/bc consult/donotrisx4 Intake Note: pt needs refill on OCP Head Start Coordinator: Head Start Coordinator Present (Felicitas) Allergies amoxicillin (AMOXICILLIN) Allergy (Intermediate, Verified 11/07/24 10:00) UTICARIA Is last menstrual period known: Yes Last menstrual period: 10/18/24 HPI Comments Details: Patient is a premenopausal woman presenting for annual examination. Doing well with quad stayer concerns: Admits to being prone to yeast infections more so in the summer. Currently is sexually active. She denies vaginal itching or irritation. STI screening offered; she accepts. She tries to eat healthy and stays active with exercise. Denies family history of ovarian or colon cancer. FH breast cancer. Last pap smear 2022, negative. Doing well on OCPs once refill. She denies any contraindications to control such as: migraines with aura, history of DVT or pulmonary emboli, high blood pressure, liver disease, thrombolic disorders, Lupus, +RASHARD, breast cancer, or smoking. [facility] Medical History Sacrococcygeal pilonidal cyst History of abnormal cervical Pap smear Genital herpes Obesity (BMI 30.0-34.9) ADHD Family History Paternal Grandmother Lung cancer History of breast cancer Paternal Grandfather Liver cancer Prostate cancer Other Substance use disorder Social History (Updated 11/07/24 @ 10:12 by Deysi Melara CNM) Housing: House Alcohol intake: current Alcohol intake frequency: a few times a month Alcohol type: hard liquor Patient Tobacco Use Status: Never used Tobacco e-Cigarette/Vaping Use: Currently Using Second Hand Smoke Exposure: No Substance Use Type: Marijuana service: No Current occupational status: employed 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 [employer] Current occupational exposures/hazards: No Sexual orientation: Straight/Heterosexual Gender identity: Female Cognitive needs: No Hearing needs: No Vision needs: Yes Female Reproductive History Menstrual Age of Menarche: 10 Duration of menses: 3-5 days Date of last menstrual period: 10/18/24 control method: pills Total pregnancies: 1 Number of Living Children: 0 Ab induced: 1 Date of last pap smear: 10/01/22 (neg) History of abnormal pap smear: Yes (05/30 ascus 05/31 neg) Review of Systems Const All systems reviewed & are unremarkable except as noted in HPI and below Reports as per HPI Eyes Reports no additional complaints ENT Reports no additional complaints Card Reports no additional complaints Resp Reports no additional complaints GI Reports as per HPI and Reports no additional complaints Reports as per HPI Musc Reports no additional complaints Skin/Breast Reports as per HPI Neuro Reports no additional complaints Psych Reports no additional complaints Endo Reports no additional complaints Johnathan/Lymph Reports no additional complaints Aller/Immun Reports no additional complaints Physical Exam Vital Signs: Last Vital Signs BP 110/62 11/07/24 10:01 BMI result Body Mass Index 28.7 Const General: cooperative, healthy appearing, no acute distress, well developed and alert Orientation/consciousness: patient oriented x3 HEENT Head: Yes normal to inspection Eyes General: appearance normal, both eyes and all related structures Neck Neck: Yes normal visual inspection Thyroid: Thyroid normal Chest Chest palpation & inspection: normal inspection of the chest and other (no puckering, dimpling, peau de orange, retraction, discharge, masses) Breast/axilla inspection: normal inspection of the breasts Breast/axilla palpation: normal palpation of the breasts Resp Effort & Inspection: normal respiratory effort GI Inspection: Yes normal to inspection Palpation (GI): Soft to palpation Rectal Exam - Female: deferred General: Yes bladder normal to palpation External Female Exam: normal external appearance and normal appearance of the urethra Speculum Exam - Vagina: normal appearance of the vagina, normal palpation and normal vaginal discharge Speculum Exam - Cervix: normal appearance of the cervix and normal palpation Bimanual exam- vagina & uterus: normal bimanual exam, normal palpation, uterine size normal, bladder normal to palpation, normal palpation and non-tender Bimanual Exam- Adnexa, other: no masses Skin General skin exam: no rashes or lesions noted Rashes: no rashes Neuro General: patient oriented x3 Cognition (Neuro): normal cognition Extrem General: Yes normal to inspection Psych Attitude: cooperative Thought process: Normal thought process present Assessment & Plan Assessment & Plan (1) Encounter for well woman exam with routine gynecological exam: Code(s): Z01.419 - Encounter for gynecological examination (general) (routine) without abnormal findings Category: Medical Plan Discussed: Current recommendations for pap smears per ASCCP guidelines. Breast awareness and periodic breast exams. Maintain a healthy lifestyle including a well balanced diet and routine exercise. Use condoms for STI prevention. GC, BV panel obtained and lab work ordered. control hormone use warnings: go to ER if and loss of vision, blindness, severe headache, chest pain or difficulty breathing, severe abdominal pain, or any pain or swelling in an extremity. Patient verbalizes understanding and agrees to the plan of care. She was given opportunity to ask questions and all questions were answered to the best of my ability. RTO in one year for annual quad stayer examination. This note is constructed using voice recognition software. While every effort has been made to ensure accuracy, nursery laborer errors may have been included. Orders: Orders Syphilis Screen Today Z20.2 - Contact with and (suspected) exposure to infections with a predominantly sexual mode of transmission HIV Ab/Ag Today Z20.2 - Contact with and (suspected) exposure to infections with a predominantly sexual mode of transmission Hepatitis C Antibody Reflex Today Z20.2 - Contact with and (suspected) exposure to infections with a predominantly sexual mode of transmission Bacterial Vaginosis Panel Today Z20.2 - Contact with and (suspected) exposure to infections with a predominantly sexual mode of transmission CT NG by PCR Vag/Cerv Today Z20.2 - Contact with and (suspected) exposure to infections with a predominantly sexual mode of transmission Hepatitis B Core Antibody Today Z20.2 - Contact with and (suspected) exposure to infections with a predominantly sexual mode of transmission Medications: Refilled norgestrel-ethinyl estradiol 0.3-30 mg-mcg 1 tab PO DAILY 82 tabs 4RF Coding Level of Care Code Est Pt Prev Care 18-39y([id number]) Diagnoses Encounter for well woman exam with routine gynecological exam Z01.419
[2024-11-07 10:01] VITALS: BP 110/62; BMI 28.7
== END 2024-11-07 10:28 | disposition home or self-care (01) ==
LOC: HO.HWS 09:58
PROVIDERS: PCP Internal Medicine; Visit Provider Advanced Practice Midwife
DX: Z01.419 Encounter for gynecological examination (general) (routine) without abnormal findings (principal)
CPT/HCPCS: 99395; 99459

== ENCOUNTER 2024-11-07 10:22 | Outpatient (REF) | payer OTHER, SELFPAY ==
[2024-11-08 13:39] LABS: CT PCR NOT DETECTED (Not Detect.); NG PCR NOT DETECTED (Not Detect.)
[2024-11-08 14:11] LABS: Bacterial Vaginosis PCR POSITIVE (Negative); Candida Group PCR DETECTED (Not Detect); Candida glab krusei PCR NOT DETECTED (Not Detect); Trichomonas vaginalis PCR NOT DETECTED (Not Detect)
== END 2024-11-07 10:23 | disposition home or self-care (01) ==
LOC: HO.LNP 10:22
PROVIDERS: Visit Provider Advanced Practice Midwife
DX: Z20.2 Contact with and (suspected) exposure to infections with a predominantly sexual mode of transmission (principal)
CPT/HCPCS: 81515; 87491; 87591

== ENCOUNTER 2025-03-13 17:55 | Emergency (ER) | payer SELFPAY ==
--- NOTE | 2025-03-13 18:02 | ED.GENADULT ---
HPI - General Adult General Chief complaint: Skin/Abscess/Foreign Body Stated complaint: needs a cyst drained Time Seen by Provider: 03/13/25 21:17 Source: patient Mode of arrival: ambulatory Limitations: no limitations History of Present Illness ED Provider: DR. Huitron HPI narrative: 24-year-old female with history of hidradenitis suppurativa brought in to sacral coccygeal pilonidal abscess, s/p pilonidal cyst surgical excision on [address] Thompson ever since patient is prone to get pilonidal abscess very frequently, returned today for evaluation of pilonidal abscess and pain in the coccygeal area. No fever, no chills. Related Data Previous Rx's ?Medication ?Instructions ?Recorded spironolactone 25 mg tablet 25 mg PO BID #180 tabs 06/26/24 ondansetron 4 mg disintegrating 4 mg PO Q8H PRN nausea and 09/18/24 tablet vomiting #7 tabs norgestrel 0.3 mg-ethinyl 1 tab PO DAILY #82 tabs 11/07/24 estradiol 30 mcg tablet metronidazole 500 mg tablet 500 mg PO BID 7 days #14 tabs 11/08/24 miconazole nitrate 2 % vaginal 1 appful vaginal BEDTIME 7 days 11/08/24 cream (Miconazole-7) #45 grams doxycycline hyclate 100 mg tablet 100 mg PO BID #14 tabs 03/13/25 Allergies Allergy/AdvReac Type Severity Reaction Status Date / Time amoxicillin (AMOXICILLIN) Allergy Intermediate UTICARIA Verified 03/13/25 18:05 Review of Systems Review of Systems: All other systems are reviewed and are negative Constitutional: Reports as per HPI and Reports no additional constitutional complaints Eyes: Reports as per HPI and Reports no additional eye complaints Reports system reviewed and no additional complaints, except as documented Cardiovascular: Reports as per HPI and Reports no additional cardiovascular complaints Respiratory: Reports as per HPI and Reports no additional respiratory complaints Gastrointestinal: Reports as per HPI and Reports no additional gastrointestinal complaints Genitourinary: Reports no additional female genitourinary complaints Musculoskeletal: Reports no additional musculoskeletal complaints Skin/Breast: Reports system reviewed and no additional complaints, except as docu Psychiatric: Reports no additional psychiatric complaints Endocrine: Reports no additional endocrine complaints Hematologic/Lymphatic: Reports no additional hematologic/lymphatic complaints Allergic/Immunologic: Reports no additional allergic/immunologic complaints Reports system reviewed and no additional complaints, except as documented and Reports Abnormal speech present [facility] Past Medical History Medical History Sacrococcygeal pilonidal cyst History of abnormal cervical Pap smear Genital herpes Obesity (BMI 30.0-34.9) ADHD Family History Family History Paternal Grandmother Lung cancer History of breast cancer Paternal Grandfather Liver cancer Prostate cancer Other Substance use disorder Social History Social History Housing: House Alcohol intake: current Alcohol intake frequency: a few times a month Alcohol type: hard liquor Patient Tobacco Use Status: Never used Tobacco e-Cigarette/Vaping Use: Currently Using Second Hand Smoke Exposure: No Substance Use Type: Marijuana Advance Directives: No Advance Directives Information Provided: No Do you have a plan to hurt others: No Plan service: No Current occupational status: employed 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 Blood pressure elevated. Heart rate normal. Respiratory rate normal. Temperature normal. Oxygen saturation normal. Appearance: Alert. Oriented X3. No acute distress. Head: Normal external exam. Normocephalic. Atraumatic. No Benson signs noted. No raccoon eyes noted Eyes: PERRLA. EOMI. Conjunctiva and sclera normal. Eyelids normal. ENT: TM's Normal. Pharynx normal. Uvula midline. Moist mucous membranes. No trismus noted. No drooling noted. No muffled voice noted. Neck: Normal inspection. Neck supple. FROM. No adenopathy. Thyroid Normal. No meningeal signs. No neck mass noted. CVS: Normal heart rate and rhythm. Heart sound normal. No murmurs noted. Pulses normal throughout. Respiratory: No respiratory distress. Painless inspiration. Breath sounds normal. No wheezes/rales/rhonchi noted. Chest nontender. No accessory muscle usage noted or decreased air movement noted. Abdomen: Soft and nontender. Bowel sounds normal in all 4 quadrants. No distention noted. No organomegaly noted. No visible injury noted. Rectal exam: 5 x 5 cm area of fluctuation in the left buttock cheek from her from anal plan and rectum. With redness and hotness of the skin above the abscess. Back: No CVA tenderness. Full range of motion noted. Skin: Skin warm and dry. Normal skin color. Normal skin turgor. No rashes/lesions/lacerations noted. Extremities: No lower extremity edema. Extremities exhibit normal range of motion. Extremities nontender. Neuro: Oriented X 3. Cranial nerve exam: II-XII are grossly intact No motor deficit. No sensory deficit. Reflexes normal. Course Course Course Narrative: This is a rapid medical exam performed by Hiram Sanchez NP: Additional HPI, ROS, PE not included below will be deferred to primary provider. Patient is a 24y/o F with pmhx of hidradenitis suppurativa presenting with abscess to left side of gluteal cleft since Wednesday, history of same. Denies fevers. Area warm to touch and tender. Not visualized in triage due to privacy concerns. Reevaluation(s) Reevaluation #1: S/p pilonidal abscess I and D please refer to procedure note. Will start the patient on short course of doxycycline. Will refer again to Dr. Thompson. Time: 22:14 Medications Administered Discontinued Medications Generic Name Dose Route Start Last Admin Trade Name Reinaldoq PRN Reason Stop Dose Admin Lidocaine HCl 10 ml 03/13/25 21:23 03/13/25 21:52 Lidocaine Hcl 2 % Mpf 5 Ml Vial SUBCUT 03/13/25 21:24 Not Given ONCE ONE Procedures Abscess I/D Site: other (Pilonidal cyst on left buttock cheek) Side (if applicable): left Local Anesthetic: lidocaine 2% Amount of anesthesia used (mL): 10 Technique: incised with blade Amount of fluid expressed (mL): 5 Sent for culture/gram staining?: No Irrigation: No Packing used?: none Complications: pain Medical Decision Making Differential Diagnosis Differential Diagnoses: The differential diagnosis associated with the presentation includes (Pilonidal abscess, pilonidal cyst, hemorrhoid, cellulitis.) Admission/Observation Consideration of admission/observation: Escalation of care including admission/observation considered Discharge Plan Discharge Clinical Impression: Cyst, pilonidal, with abscess, Cellulitis Patient Disposition: Home, Self-Care Instructions: Pilonidal Cyst (ED), Warm Compress or Soak (ED) Prescriptions: New doxycycline hyclate 100 mg tablet 100 mg PO BID Qty: 14 0RF No Action metronidazole 500 mg tablet 500 mg PO BID 7 Days Qty: 14 0RF miconazole nitrate [Miconazole-7] 2 % cream 1 appful vaginal BEDTIME 7 Days Qty: 45 0RF ondansetron 4 mg tablet,disintegrating 4 mg PO Q8H PRN (Reason: nausea and vomiting) Qty: 7 0RF spironolactone 25 mg tablet 25 mg PO BID Qty: 180 3RF norgestrel-ethinyl estradiol 0.3-30 mg-mcg tablet 1 tab PO DAILY Qty: 82 4RF Referrals: Hoang Thompson MD [Physician, General Surgery] Sweta Haney MD [Primary Care Provider, Endocrinology] Stand Alone Forms: Work/School Release Print Language: Brazilian
[2025-03-13 18:03] VITALS: BP 131/67; PULSE 89; RESP 20; TEMP 36.5; O2SAT 98; BMI 29.9
--- OUTSIDE RECORDS SUMMARY | 2025-03-13 21:13 | XMS_ITS | Clinical Summary ---
Author Organization Merged With [facility] Address [address] [place] [phone] Phone Care Team Providers Care Slot Service Specialist Name Role Phone Mick Combsia Kizzy POLICY DIRECTOR Primary Care Provider Allergies Active Allergy Reactions Criticality Noted Date Comments Amoxicillin 11/24/2021 Immunizations Immunization Administration Dates Next Due Hepatitis B Adult 09/26/1999 Influenza Quadrivalent Preservative Free IM 12/2019,01/16/2020,01/16/2020 MMR 10/13/2002 Tdap 04/15/2010 Varicella 09/14/2007 Social History Tobacco Use Types Packs/Day Years Used Date Smoking Tobacco: Never Smokeless Tobacco: Never Alcohol Use Standard Drinks/Week Comments Yes 0 (1 standard drink = 0.6 oz pur e alcohol) Education Answer Date Recorded Are you interested in more education? Not on soren e 09/04/2022 Are you concerned about learning? Not on file 09/04/2022 No 09/04/2022 No 09/04/2022 Digital Access Answer Date Recorded No 10/03/2022 No 10/03/2022 No 10/03/2022 Reliable internet access at home? Not on file 10/03/2022 Device with a working camera? Not on file Comments No Sex and Gender Information Value Date Recorded Sex Assigned at Female 11/24/2021 7:21 PM EDT Legal Sex Female 9:21 AM EDT Gender Identity Female 11/24/2021 7:21 PM EDT Sexual Orientation Straight 11/24/2021 7: 21 PM EDT Last Filed Vital Signs Vital Sign Reading Time Taken Comments Blood Pressure 134/77 11/24/2021 7:22 PM EDT Pulse 100 11/24/2021 9:10 PM EDT Temperature 37.5 C (99.5 F) 11/24/2021 7:22 PM EDT Respiratory Rate 18 11/24/2021 9:10 PM EDT Oxygen Saturation 97% 11/24/2021 9:10 PM EDT Inhaled Oxygen Concentration - - Weight 97.5 kg (215 lb) 11/24/2021 7:22 PM EDT Height 172.7 cm (5' 8 ) 11/24/2021 7:22 PM EDT Body Mass Index 32.69 11/24/2021 7:22 PM EDT Plan of Treatment Health Maintenance Due Date Last Done Comments DEPRESSION SCREENING 2010 HPV VACCINES (1 - 3-dose series) 2013 HEPATITIS C SCREENING 2016 HIV ONE-TIME SCREENING (18-6 5 YEARS) 2016 PAP SMEAR 09/09/2019 SMOKING STATUS SCREENING (On ce After 26 Yrs) 2024 INFLUENZA VACCINE (#1) 2024 0, 01/16/2020, 01/16/2020 COVID-19 VACCINE (3 - 2024-2 6 season) 2025 06/30/2020, 06/09/2020 Adult Td,Tdap Booster 11/13/2027 11/12/2017 , 04/15/2010 MENINGOCOCCAL VACCINES (ACWY) Completed 09/23/2015 HEPATITIS A VACCINES Aged Out No long er eligible based on patient's age to complete this topic HIB VACCINES Aged Out No longer eligi ble based on patient's age to complete this topic MENINGOCOCCAL VACCINES (B) Aged Out N o longer eligible based on patient's age to complete this topic PNEUMOCOCCAL VACCINES (0-49 years) Aged Out No longer eligible b ased on patient's age to complete this topic Medical Devices Not on file Insurance [facility] H[facility] Care Teams Slot Service Specialist Relationship Specialty Start Date End Date Sri Combs NP PCP - General Family Medicine 11/24/21 Additional Source Comments The information contained in this document represents components of the legal health record. It is not the complete legal health record.[facility]erged With [facility]
--- OUTSIDE RECORDS SUMMARY | 2025-03-13 21:13 | XMS_ITS | Clinical Summary ---
Author Organization [address] Building Address [address] [place] [id number] Phone Care Team Providers Care Dispatch Clerk Name Role Phone Mervin Teran MD Primary Care Pr ovider Encounters Date Type Department Care Team Description 03/08/2025 Telephone Walk-In Clinic - [address] [phone] Wolf Jesus MD 03/07/2025 5:45 PM EDT Clinic Lab Collection Walk-In Clinic - [address] [id number] Pre-employment drug screening (Primary Dx) from Last 3 Months Surgical History Surgery Date Site/Laterality Comments OTHER SURGICAL HISTORY PROCEDURE: DENIES PREVIOUS SURGERY Medical History Medical History Date Comments 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/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 DX:Verruca vulg fadia Family History Medical History Relation Name Comments Other: HIV Maternal Grandfather Other: healthy Mother Hypertension Paternal Grandfather Other: HIV Paternal Grandfather Heart attack Paternal Grandmother Liver cancer Paternal Grandmother Lung cancer Paternal Grandmother smoker Relation Name Status Comments Maternal Grandfather Mother Paternal Grandfather Paternal Grandmother Social History Tobacco Use Types Packs/Day Years Used Date Smoking Tobacco: Never Smokeless Tobacco: Never Alcohol Use Standard Drinks/Week Comments No 0 (1 standard drink = 0.6 oz pur e alcohol) Comments Unknown Sex and Gender Information Value Date Recorded Sex Assigned at Not on file Legal Sex Female 9:19 PM EST Gender Identity Not on file Sexual Orientation Not on file Obstetrics History Plan of Treatment Health Maintenance Due Date Last Done Comments Hepatitis B Vaccines (2 of 3 - 3-dose series) 10/24/1999 09/26/1999 HPV Vaccines (1 - 3-dose series) 2013 Cervical Cancer Screening: P ap Smear 09/09/2019 Depression Screening 05/10/2024 COVID-19 Vaccine (1 - 2023-2 5 season) 2025 Influenza Vaccine (#1) 2025 01/16/2020 HIV Screening 03/08/2025 Hepatitis C Screening 03/08/2025 Social Influencers of Health Screening 03/08/2025 DTaP,Tdap,and Td Vaccines (3 - Td or Tdap) 11/13/2027 11/12/2017, 04/15/2010 RSV Immunization Adult Patients (1 - 1-dose 75+ series) 2073 MMR Vaccines Completed 10/13/2002 Varicella Vaccines Aged Out 09/14/2007 No longer eligible based on patient's age to complete this topic HIB Vaccines Aged Out No longer eligi ble based on patient's age to complete this topic Hepatitis A Vaccines Aged Out No long er eligible based on patient's age to complete this topic IPV Vaccines Aged Out No longer eligi ble based on patient's age to complete this topic Meningococcal ACWY Vaccine Aged Out N o longer eligible based on patient's age to complete this topic Meningococcal B Vaccine Aged Out No l onger eligible based on patient's age to complete this topic Pneumococcal Vaccine: Pediatrics (0 to 5 Years) and At-Risk Patients (6 to 49 Years) Aged Out No longer eligible b ased on patient's age to complete this topic RSV Immunization Patients Under 20 months Aged Out No longer eligible b ased on patient's age to complete this topic Procedures Procedure Name Priority Date/Time Associated Diagnosis Comments POC URINE DRUG SCREEN Routine 03/07/2025 5:54 PM EDT Pre-employment drug screening from Last 3 Months Results * POC Urine Drug Screen (03/07/2025 5:54 PM EDT) Amphetamine Screen, Ur POC Negative Negative Benzodiazepines, Ur POC Negative Negative Cocaine, Ur POC Negative Negative Methamphetamine Screen, Ur POC Negative Negative Opiate Scrn, Ur POC Negative Negative THC, Ur POC Negative Negative Temperature, Ur POC 94 Urine Urine specimen obtained by clean catch procedure / Unknown 03/07/2025 5:54 PM EDT Wolf Jesus MD POINT OF CARE TEST ENTER/EDIT OR DERABLES Final Result from Last 3 Months Insurance [employer] Care Teams Dispatch Clerk Relationship Specialty Start Date End Date Mervin Teran MD [address] [place], [place] PCP - General Internal Medicine 11/04/21
--- OUTSIDE RECORDS SUMMARY | 2025-03-13 21:13 | XMS_ITS | Encounter Summary ---
Author Organization [facility] Address [address] [place] [address] Care Team Providers Care Mechanical Shop Laborer Name Role Phone Mervin Teran MD Primary Care Pr ovider Reason for Visit * Reason Onset Date Comments pending fast trak results - [facility] 03/08/2025 Encounter Details Date Type Department Care Team (Late st Contact Info) Description 03/08/2025 Telephone Walk-In Clinic - [address] [phone] Wolf Jesus MD [address] [place] [address] Social History Tobacco Use Types Packs/Day Years Used Date Smoking Tobacco: Never Smokeless Tobacco: Never Alcohol Use Standard Drinks/Week Comments No 0 (1 standard drink = 0.6 oz pur e alcohol) Comments Unknown Sex and Gender Information Value Date Recorded Sex Assigned at Not on file Legal Sex Female 9:19 PM EST Gender Identity Not on file Sexual Orientation Not on file documented as of this encounter Progress Notes * Norma Ritter - 03/08/2025 10:45 AM EDT Patient was seen here on 03/07/25 by the lab to get a drug screen for [facility]. Marilu from [employer] calls this morning reporting she is still awaiting on the results for this patient. With any questions, please reach Marilu at [phone], her fax number is [phone] documented in this encounter Plan of Treatment Not on file documented as of this encounter Visit Diagnoses Not on filedocumented in this encounter Care Teams Mechanical Shop Laborer Relationship Specialty Start Date End Date Mervin Teran MD [address] [facility], [place] PCP - General Internal Medicine 11/04/21 documented as of this encounter
[2025-03-13 21:17] VITALS: BP 139/85; PULSE 92; RESP 16; TEMP 36.6; O2SAT 98
[2025-03-13 22:32] VITALS: BP 134/69; PULSE 85; RESP 18; TEMP 37; O2SAT 98
[2025-03-13 22:40] VITALS: BP 134/69; PULSE 85; RESP 18; TEMP 37; O2SAT 98
== END 2025-03-13 22:45 | disposition home or self-care (01) ==
PROVIDERS: Emergency Provider Emergency Medicine; PCP Internal Medicine
DX: L05.01 Pilonidal cyst with abscess (principal); L03.317 Cellulitis of buttock
CPT/HCPCS: 10080; 99283